=== PATIENT | male | born 1950 | race Caucasian/White ===

== ENCOUNTER 2019-11-21 12:40 | Emergency (ER) | payer MEDICARE, OTHER, SELFPAY ==
[2019-11-21] VITALS (8 sets, daily range): BP systolic 101–139; BP diastolic 73–99; PULSE 86–92; RESP 12–20; TEMP 36.1; O2SAT 95–100
--- NOTE | ~2019-11-21 | CT_ITS ---
EXAMINATION: CT brain wo con DATE: 11/21/2019 13:20 INDICATION: Multiple falls. Low back pain. TECHNIQUE: Computed tomography (CT) of the head was performed without intravenous contrast. The dose- length product was 605.33 mGy-cm. The mA was adjusted according to patient size. Iterative reconstruc tion technique was employed. COMPARISON: CT dated 10/02/2019 FINDINGS: Mild atrophy. There are scattered mild periventricular and subcortical white matter changes , most likely related to small vessel ischemic disease (microangiopathy). No acute intracranial hemor rhage, infarction, mass or mass effect. Mild mucosal thickening of the left maxillary and ethmoid sin uses. Mastoids are pneumatized. No depressed skull fractures. There is nasal fracture, likely chronic . IMPRESSION: 1. No acute intracranial abnormality. 2: Mild sinus disease. 3: Chronic age-related findings. Reviewed, dictated and finalized at location A. OLOGICAL SURGERY TEACHER
--- NOTE | ~2019-11-21 | CT_ITS ---
EXAMINATION: CT cervical spine wo con DATE: 11/21/2019 13:21 INDICATION: Neck pain after fall TECHNIQUE: Computed tomography (CT) of the cervical spine was performed without intravenous contrast. The dose-length product was 438 mGy-cm. Automated exposure control and iterative reconstruction tech doughque were employed. COMPARISON: CT dated 10/02/2019 FINDINGS: There is moderate-severe cervical spondylosis. No acute cervical fracture. Odontoid process within normal limits. No paraspinal soft tissue abnormality. Vertebral body heights are maintained. IMPRESSION: 1. No acute fracture. 2: Moderate-severe cervical spondylosis. Reviewed, dictated and finalized at location A. MOBILE UPHOLSTERY TRIM INSTALLER
--- NOTE | ~2019-11-21 | CT_ITS ---
EXAMINATION: CT lumbar spine wo con DATE: 11/21/2019 13:21 INDICATION: Low back pain after fall. Intoxication. TECHNIQUE: Computed tomography (CT) of the lumbar spine was performed without intravenous contrast. T he dose-length product was 605.33 mGy-cm. Automated exposure control and iterative reconstruction swapna hnique were employed. COMPARISON: CT dated 10/02/2019 FINDINGS: There has been progression of severe burst fracture at T12 with retropulsion into the spina l canal causing mild canal stenosis. There is a chronic wedge compression deformity of T11. There are are chronic right lower rib fractures. There is mild-moderate multilevel degenerative disc disease w ith advanced facet arthropathy at L4-5 and L5-S1. There is scarring in the right lung base. IMPRESSION: 1. Progression of severe burst fracture at T12 compared with 10/02/2019 with associated mild central canal stenosis secondary to retropulsion which has developed since prior study. Reviewed, dictated and finalized at location A. INTERNSHIP IMPRESSION: 1. Progression of severe burst fracture at T12 compared with 10/02/2019 with as sociated mild central canal stenosis secondary to retropulsion which has develo ped since prior study.
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
--- NOTE | 2019-11-21 12:55 | ECG_ITS ---
Measurements Intervals [place] Rate: 92 P: 69 VT: 190 QRS: -17 QRSD: 129 T: 72 QT: 441 QTc: 547 Interpretive Statements SINUS RHYTHM LEFT BUNDLE BRANCH BLOCK BASELINE ARTIFACT- I, II, III, AVR, AVL, AVF, V1-V6 ABNORMAL ECG Electronically Signed On 11-21-2019 17:32:13 MECHANICAL ENGINEERING INTERN by Jericho Mills D.O.
--- NOTE | 2019-11-21 13:00 | PC.NURSE ---
EMS gave IV Thiamine in route.
[2019-11-21 13:47] LABS: Basophils Percent Auto 0.4 % (0.2-1.2); Eosinophils Absolute Auto 0.5 K/mm3 (0-0.3); Eosinophils Percent Auto 5.9 % (0-4.4); Hematocrit 39.3 % (42.0-52.0); Immature Granulocyte Absolute 0.02 K/mm3 (0.00-0.031); Immature Granulocyte Percent A 0.3 % (0-0.5); Lymphocytes Absolute Auto 1.58 K/mm3 (0.9-3.2); Lymphocytes Percent Auto 20.9 % (18.3-44.2); Mean Corpuscular HGB Conc 33.1 g/dl (32-36); Mean Corpuscular Hemoglobin 33.2 pg (26-34); Mean Corpuscular Volume 100.5 fl (80-100); Mean Platelet Volume 11.4 fl (7.4-10.4); Monocytes Absolute Auto 1.1 K/mm3 (0.1-0.6); Monocytes Percent Auto 14.8 % (2.6-8.5); Neutrophils Absolute Auto 4.4 K/mm3 (1.3-6.7); Neutrophils Percent Auto 57.7 % (45.5-73.1); Platelet Count Result 133 k/mm3 (150-375); Red Blood Count 3.91 M/mm3 (4.6-6.20); Red Cell Distribution Width 16.1 % (11.5-14.5); White Blood Count 7.6 K/mm3 (4.5-10.0)
[2019-11-21 13:57] LABS: Add Urine Microscopic? YES; Ammonia 33 umol/L (9-30); Appearance Urine Cloudy (Clear); Bacteria Urine Trace /hpf; Bilirubin Urine Negative (Negative); Blood Urine 2+ (Negative); Color Urine Amber (Yellow); Creatine Kinase 618 U/L (55-170); Glucose Urine UA Negative (Negative); Hyaline Casts Urine 50+ /lpf; Ketones Urine Negative (Negative); Leukocyte Esterase Ur Negative LEU/UL (Negative); Mucus Urine Few /lpf; Nitrate Urine Negative (Negative); Protein Urine 1+ mg/dL (Negative); Specific Grav Ur 1.018 (1.001-1.035); Squamous Epithelial Cell Urine Many /hpf (Few); WBC Clumps Urine Present /HPF; WBC Urine 31-50 /hpf
[2019-11-21 13:58] LABS: INR 1.5; Prothrombin Time 17.8 Seconds (11.1-14.7)
[2019-11-21 13:59] LABS: Alanine Aminotransferase 29 U/L (4-50); Albumin Level 2.7 g/dL (3.5-5.1); Alkaline Phosphatase 227 U/L (38-126); Aspartate Amino Transferase 111 U/L (17-59); Bilirubin,Total 2.6 mg/dL (0.2-1.3); Blood Urea Nitrogen 15 mg/dL (9-20); Calcium 8.4 mg/dL (8.4-10.2); Carbon Dioxide 30 mmol/L (22-30); Chloride 93 mmol/L (98-107); Estimated Glomerular Filt Rate 26; Glucose 99 mg/dL (75-110); Magnesium 1.6 mg/dL (1.6-2.3); Partial Thromboplastin Time 31.3 SECONDS (22.3-36.8); Potassium 3.1 mmol/L (3.4-5.0); Sodium 136 mmol/L (137-145)
[2019-11-21] MEDS: LACTATED RINGERS 1,000 ML 999 ML IV CONT (14:25)
[2019-11-21] MEDS: POTASSIUM CHLORIDE 20 MEQ TABLET 40 MEQ PO (16:44)
[2019-11-21] MEDS: MORPHINE SULFATE 2 MG/ML INJ IV PUSH (19:48)
--- NOTE | 2019-11-21 19:53 | PC.NURSE ---
PT RESTING IN BED WITH NO SS OF DISTRESS. BEDSIDE REPORT GIVEN TO EMS. TRANSFER PACKET WITH IMAGING CD GIVEN TO EMS. ALL QUESTIONS ANSWERED
== END 2019-11-21 19:53 | disposition short-term general hospital (02) ==
PROVIDERS: Emergency Provider General Practice
DX: N17.9 Acute kidney failure, unspecified (principal); S22.081A Stable burst fracture of T11-T12 vertebra, initial encounter for closed fracture; S09.90XA Unspecified injury of head, initial encounter; K74.69 Other cirrhosis of liver; Z89.021 Acquired absence of right finger(s); I10 Essential (primary) hypertension; I51.7 Cardiomegaly; J32.9 Chronic sinusitis, unspecified; M47.812 Spondylosis without myelopathy or radiculopathy, cervical region; W19.XXXA Unspecified fall, initial encounter; I44.7 Left bundle-branch block, unspecified; R94.31 Abnormal electrocardiogram [ECG] [EKG]; R82.998 Other abnormal findings in urine
CPT/HCPCS: 36415; 51701; 70450; 71045; 72125; 72131; 80053; 81001; 82140; 82550; 83735; 85025; 85610; 85730; 87086; 93005; 96361; 96374; 99291; A9270; J2270; J7120

== ENCOUNTER 2020-01-21 22:03 | Inpatient (IN) | payer MEDICARE, OTHER, SELFPAY ==
--- NOTE | ~2020-01-21 | XR_ITS ---
EXAMINATION: XR chest 1V portable EXAM DATE: 01/21/2020 23:10 INDICATION: Generalized weakness. Confusion, dizziness. TECHNIQUE: Portable AP frontal chest x-ray was obtained. Comparison is made to prior examination from 11/21/2019. FINDINGS: The lungs are clear. There are no pleural effusions. Cardiac silhouette is prominent but magnified on this AP technique. There is no pneumothorax suspected. Right shoulder replacement. Le ft humeral hardware and enchondroma or bone infarction. IMPRESSION: No acute cardiopulmonary findings. Reviewed, dictated and finalized at location G.
--- NOTE | ~2020-01-21 | CT_ITS ---
EXAMINATION: CT abdomen pelvis wo con DATE: 01/23/2020 13:04 INDICATION: Abdominal distention TECHNIQUE: Computed tomography (CT) of the abdomen and pelvis was performed without intravenous contr ast. The dose-length product (DLP) was 1237.58 mGy-cm. Automated exposure control and iterative recon struction technique were employed. COMPARISON: 10/06/2018 FINDINGS: There are small pleural effusions, right greater than left. Minimal airspace opacities are present in the visualized lung bases. The heart size is normal. There is bilateral gynecomastia, righ t greater than left. There is nodularity of the liver surface. The enlarged spleen measures up to 16. 5 cm. There is a moderate volume of ascites. Choledocholithiasis is unchanged. The gallbladder and ad renal glands are normal. The kidneys are unremarkable. There is calcified atherosclerosis of the aort a and many of the other arteries. No pathologically enlarged abdominal or pelvic lymph nodes are iden tified. There is no free intraperitoneal gas or evidence of bowel obstruction. The bladder is decompr essed by a Joiner catheter. There are surgical changes of prostatectomy and pelvic lymph node dissecti on. There is posterior thoracolumbar fusion with a chronic T12 burst fracture. There is severe lumbar spondylosis at L5-S1. There are multiple bilateral rib fractures of the visualized lower thorax of v arying age. Some of the left appear to be acute or subacute. IMPRESSION: 1. Cirrhosis with splenomegaly and moderate volume of ascites. 2. Bibasilar airspace opacities, consistent with atelectasis. 3. Small pleural effusions. Reviewed, dictated and finalized at location A.
--- NOTE | ~2020-01-21 | CT_ITS ---
EXAMINATION: CT brain wo con EXAM DATE: 01/21/2020 23:10 INDICATION: Dizziness. TECHNIQUE: Spiral CT of the head was performed without contrast. Axial, coronal and sagittal images were reviewed. The dose-length product (DLP) for this examination was 681.00 mGy-cm. The exposure w as tailored according to patient size, and iterative reconstruction (ASIR) was used as additional dos e reduction technique. Comparison is made to prior examination from 11/21/2019. FINDINGS: There is no acute intraparenchymal hemorrhage. No evidence of intraparenchymal brain mass lesion. No evidence of acute infarction. Please note that initial head CT has limited sensitivity f or small or acute infarctions. There is mild periventricular and subcortical hypodensity, nonspecific but probably related to small vessel ischemic disease. There is moderate prominence of the sulci a nd ventricles related to cerebral atrophy. There is intracranial carotid arteriosclerosis. There a re no extra-axial collections. There is no mass effect or midline shift. Probable old bilateral med ial orbital wall fractures. Soft tissue is unremarkable. The visualized sinuses and mastoid air cell s are well aerated. There is no interval change. IMPRESSION: 1. No acute intracranial findings. 2. Chronic age related findings. Reviewed, dictated and finalized at location G.
--- NOTE | ~2020-01-21 | XR_ITS ---
EXAMINATION: XR chest 1V INDICATION: Shortness of breath TECHNIQUE: AP view of the chest is obtained. COMPARISON: 01/21/2020 FINDINGS: There are small pleural effusions. Bibasilar airspace opacities are unchanged. The heart si ze is normal. There are multiple bilateral rib fractures of varying age. There are changes of right t otal shoulder arthroplasty. Orthopedic screws are noted in the left shoulder. There is flattening of the glenoid and humeral head as well as a mixed sclerotic and lytic lesion of the left proximal humer us, likely an enchondroma. IMPRESSION: 1. Small pleural effusions. 2. Minimal bibasilar airspace opacities, consistent with atelectasis. Reviewed, dictated and finalized at location A.
--- NOTE | 2020-01-21 22:17 | ECG_ITS ---
Measurements Intervals [place] Rate: 109 P: 65 FL: 184 QRS: -8 QRSD: 126 T: 80 QT: 382 QTc: 516 Interpretive Statements SINUS TACHYCARDIA LEFT BUNDLE BRANCH BLOCK BASELINE ARTIFACT- II, III, AVR, AVL, AVF ABNORMAL ECG Electronically Signed On 01-22-2020 7:17:24 CDT by Jericho Mills D.O.
[2020-01-21 22:21] VITALS: BP 137/85; PULSE 109; RESP 20; TEMP 37.6; O2SAT 100
[2020-01-21 22:29] LABS: Add Urine Microscopic? YES; Appearance Urine Cloudy (Clear); Bilirubin Urine 1+ (Negative); Blood Urine 3+ (Negative); Color Urine Yellow (Yellow); Glucose Urine UA Negative (Negative); Ketones Urine Trace (Negative); Leukocyte Esterase Ur 3+ LEU/UL (Negative); Nitrate Urine Negative (Negative); Protein Urine 3+ (Negative)
[2020-01-21 22:36] LABS: Amphetamine Screen Urine Negative (Negative); Barbiturate Screen Urine Negative (Negative); Benzodiazepines Screen Urine Positive (Negative); Cannabinoid Screen Urine Negative (Negative); Cocaine Screen Urine Negative (Negative); Methadone Screen Urine Negative (Negative); Opiate Screen Urine Negative (Negative); Phencyclidine Screen Urine Negative (Negative)
[2020-01-21] MEDS: SODIUM CHLORIDE 0.9% IV 1,000 ML 999 ML IV CONT (22:46)
--- NOTE | 2020-01-21 22:48 | PC.NURSE ---
OK TO RUN BANANA BAG WIDE OPEN PER ERP MANDIS
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
[2020-01-21 22:56] LABS: Basophils Absolute Auto 0.01 K/mm3 (0.00-0.10); Basophils Percent Auto 0.1 % (0.0-1.0); Eosinophils Absolute Auto 0.01 K/mm3 (0.02-0.50); Eosinophils Percent Auto 0.1 % (1.0-6.0); Hematocrit 31.3 % (37.0-46.0); Hemoglobin 10.5 g/dL (12.4-15.3); Immature Granulocyte Absolute 0.06 K/mm3 (0.00-0.00); Immature Granulocyte Percent A 0.6 % (0.0-0.0); Immature Platelet Fraction Pct 8.1 % (1.0-7.0); Lymphocytes Absolute Auto 0.42 K/mm3 (1.10-4.50); Lymphocytes Percent Auto 4.3 % (18.0-42.0); Mean Corpuscular HGB Conc 33.5 g/dL (32.0-36.0); Mean Corpuscular Hemoglobin 29.6 pg (27.0-31.0); Mean Corpuscular Volume 88.2 fL (78.0-102.0); Mean Platelet Volume 13.8 fl (8.7-11.0); Monocytes Absolute Auto 0.88 K/mm3 (0.10-0.90); Monocytes Percent Auto 9.1 % (2.0-11.0); Neutrophils Absolute Auto 8.3 K/mm3 (1.7-7.2); Neutrophils Percent Auto 85.8 % (50.0-70.0); Platelet Count Result 77 K/mm3 (150-420); Red Blood Count 3.55 M/mm3 (4.70-6.10); Red Cell Distribution Width 13.9 % (11.6-14.4); White Blood Count 9.7 K/mm3 (4.8-10.8)
--- NOTE | 2020-01-21 22:56 | PC.NURSE ---
1ST LITER NS CONTINUED PER EMS
[2020-01-21 22:59] LABS: Bacteria Urine 4+ /hpf; RBC Urine >75 /hpf (0-2); Squamous Epithelial Cell Urine None seen /hpf (Few); WBC Urine >75 /hpf (0-3)
[2020-01-21 23:13] LABS: INR 1.5; Partial Thromboplastin Time 33.4 SEC (22.3-31.6)
[2020-01-21 23:14] LABS: BNP 147 pg/mL (0-100)
[2020-01-21 23:15] LABS: Lactic Acid Reflex 2.9 mmol/L (0.4-2.0)
[2020-01-21 23:33] LABS: Alanine Aminotransferase 44 U/L (16-63); Albumin Level 2.4 g/dL (3.4-5.0); Alkaline Phosphatase 84 U/L (46-116); Anion Gap 18.1 mmol/L (7-16); Aspartate Amino Transferase 205 U/L (15-37); Bilirubin,Total 1.9 mg/dL (0.00-1.00); Blood Urea Nitrogen 61 mg/dL (7-18); Calcium 7.5 mg/dL (8.5-10.1); Carbon Dioxide 23 mmol/L (21-32); Chloride 100 mmol/L (98-108); Estimated Glomerular Filt Rate 11; Glucose 102 mg/dL (70-99); Magnesium 1.1 mg/dL (1.8-2.4); Osmolality Calculated 301 mOsm/kg (285-295); Potassium 4.1 mmol/L (3.5-5.1); Sodium 137 mmol/L (136-145); Total Protein 6.5 g/dL (6.4-8.2)
[2020-01-21 23:39] LABS: Troponin I 0.24 ng/mL (0.00-0.056)
[2020-01-21 23:40] LABS: Ethanol < 3 mg/dL (0-6)
[2020-01-21 23:41] LABS: Creatine Kinase > 1000 U/L (39-308)
[2020-01-21] MEDS: levoFLOXacin 500 MG/D5W 100 ML 500 MG/100 ML BAG 100 MG IVPB (23:54)
[2020-01-22] VITALS (14 sets, daily range): BP systolic 71–182; BP diastolic 42–146; PULSE 77–107; RESP 18–24; TEMP 36.2–37.8; O2SAT 98–100; BMI 25.7
--- NOTE | 2020-01-22 00:20 | ADMGEN ---
This patient, Armen Cunningham, was admitted to 2nd Floor Room 207-2. Patient/family oriented to hospital policies and general routines including ID bracelet, bed and alarms, visiting hours, pain management, procedures, bathroom and other care routines, personal items, smoking policy, room service/diet, and visiting hours. Valuables list has been completed. Information on how to activate the Rapid Response Team has been discussed. Patient/Family are encouraged to report perceived risks to care and to ask questions if they do not understand what they are told or what they should do.
--- NOTE | 2020-01-22 00:39 | PC.NURSE ---
0022 pt taken to floor per stretcher with digital media producer and staff therapist. pt speech still unclear. during report james Espinoza requested benites. pt had been using urinal while in er. Erp dr parks notified of request for benites. order placed , if patient needs it , they can put it in on the floor . update to JAMES Reed floor staff regarding benites.
[2020-01-22] MEDS: MAGNESIUM SULF 4 GM/WATER100ML 4 GM/100 ML BAG IVPB (00:45)
[2020-01-22 01:49] LABS: Reflex Lactic Acid Yes or No Add Lactic
[2020-01-22] MEDS: ACETAMINOPHEN 325 MG TABLET 650 MG PO (02:12)
[2020-01-22] MEDS: CHLORDIAZEPOXIDE 10 MG CAPSULE PO ×3 (02:12→16:45)
--- NOTE | 2020-01-22 06:14 | PC.NURSE ---
Patient lethargic and blood pressure 84/50. Urinary output is 75 ml. Charge nurse notified of patients condition.
--- NOTE | 2020-01-22 06:21 | PC.NURSE ---
Doctor notified patient's blood pressure was 84/50 out of 75 mls new order received for liter bolus over 2 hours and to hold coreg. Pharmacy notified of changes
[2020-01-22 06:24] LABS: Troponin I 0.23 ng/mL (0.00-0.056)
--- NOTE | 2020-01-22 06:25 | PC.NURSE ---
Doctor notified of critical high troponin 0.23.
[2020-01-22] MEDS: SODIUM CHLORIDE 0.9% IV 1,000 ML 500 ML IV CONT (06:32)
--- NOTE | 2020-01-22 07:30 | PC.NURSE ---
Difficult to stimulate, lethargic, oxygen in place, fluids infusing at 500ml an hour, color pale, warm, dry, benites patent and draining scant amount isabel urine with sedement in tubing, side rails up adn remains on aerosol isolation
--- NOTE | 2020-01-22 07:54 | PC.NURSE ---
0750 aware of bp remains low 71/42 and ns runs @ 500ml/hr. he is unresponsive and labs are not due til 0900. i am having labs drawn now. no order give 1 liter bolus now and wait for lab results.
--- NOTE | 2020-01-22 07:58 | PC.NURSE ---
Lab here for draw
[2020-01-22 08:08] LABS: Hematocrit 26.3 % (37.0-46.0); Hemoglobin 8.7 g/dL (12.4-15.3); Mean Corpuscular HGB Conc 33.1 g/dL (32.0-36.0); Mean Corpuscular Hemoglobin 29.7 pg (27.0-31.0); Mean Corpuscular Volume 89.8 fL (78.0-102.0); Mean Platelet Volume 12.4 fl (8.7-11.0); Platelet Count Result 54 K/mm3 (150-420); Red Blood Count 2.93 M/mm3 (4.70-6.10); White Blood Count 6.9 K/mm3 (4.8-10.8)
--- NOTE | 2020-01-22 08:10 | PC.NURSE ---
first bolus infused, is able to open eyes and able to mumble, unsure if this is normal speech for patient, more alert and blood pressure slightly improved, mouth dry, dried emesis noted on pillow under head, cleansed face and new pillow case applied, is able to swallow water offered and given some juice
[2020-01-22] MEDS: SODIUM CHLORIDE 0.9% IV 1,000 ML 999 ML IV CONT (08:12)
[2020-01-22 08:28] LABS: Alanine Aminotransferase 42 U/L (16-63); Albumin Level 1.9 g/dL (3.4-5.0); Alkaline Phosphatase 66 U/L (46-116); Anion Gap 15.7 mmol/L (7-16); Aspartate Amino Transferase 196 U/L (15-37); Bilirubin,Total 1.7 mg/dL (0.00-1.00); Blood Urea Nitrogen 66 mg/dL (7-18); Calcium 6.9 mg/dL (8.5-10.1); Carbon Dioxide 23 mmol/L (21-32); Chloride 104 mmol/L (98-108); Estimated CRCL calculation 14 ml/min; Estimated Glomerular Filt Rate 11; Glucose 107 mg/dL (70-99); Magnesium 2.2 mg/dL (1.8-2.4); Osmolality Calculated 307 mOsm/kg (285-295); Potassium 3.7 mmol/L (3.5-5.1); Sodium 139 mmol/L (136-145); Total Protein 5.2 g/dL (6.4-8.2)
[2020-01-22 08:29] LABS: Troponin I 0.19 ng/mL (0.00-0.056)
[2020-01-22 08:30] LABS: Ammonia < 10 umol/L (11-32); Creatine Kinase 664 U/L (39-308)
[2020-01-22 08:31] LABS: Lactic Acid Reflex 2.1 mmol/L (0.4-2.0)
[2020-01-22 08:34] LABS: Band Neutrophils Percent 3 % (0-6); Eosinophils Percent Manual 0 % (1-6); Lymphocytes Absolute Manual 0.48 K/mm3 (1.1-4.5); Lymphocytes Percent Manual 7 % (18-44); Metamyelocytes Percent 1 %; Monocytes Absolute Manual 0.41 K/mm3 (0.1-0.90); Monocytes Percent Manual 6 % (3-9); Neutrophils Absolute Manual 5.58 K/mm3 (1.3-6.7); Neutrophils Percent Manual 78 % (46-73); Total Cells Counted 100
[2020-01-22 08:35] LABS: Immature Platelet Fraction Pct 7.6 % (1.0-7.0); Myelocytes Percent 5 %; Platelet Estimate Decreased (Adequate)
[2020-01-22] MEDS: DEXTROSE 5%/0.9% SOD CHL 1,000 ML 100 ML IV CONT ×2 (09:22→18:49)
[2020-01-22] MEDS: LACTULOSE 20 GM/30 ML UDC 5 GM PO ×2 (09:23→16:45)
[2020-01-22] MEDS: THIAMINE HCL 100 MG TABLET 50 MG PO (09:24)
[2020-01-22] MEDS: SPIRONOLACTONE 25 MG TABLET PO (09:24)
[2020-01-22] MEDS: POTASSIUM CHLORIDE 10 MEQ TABLET PO (09:24)
[2020-01-22] MEDS: FOLIC ACID 1 MG TABLET PO (09:24)
--- NOTE | 2020-01-22 10:04 | PC.NURSE ---
second IV line started right arm, fluids continued, saline lock to LAC continued, site clear
--- NOTE | 2020-01-22 10:12 | PC.NURSE ---
pillow under heels, requesting pain medication for recent back surgery, states takes percocet
--- NOTE | 2020-01-22 10:28 | PC.NURSE ---
Dr Jimenez and Bhumi the hospitalist in room
--- NOTE | 2020-01-22 11:17 | PC.NURSE ---
Incontinent of loose stool, cleansed, more alert, speaking on the phone with brother, fluids infusing, urine in urine bag isabel in color
--- NOTE | 2020-01-22 12:47 | PM.IMHP ---
H&P: HPI History of Present Illness Chief complaint: AMB <DEWEY Dent - Last Filed: 01/22/20 13:44> Narrative: Armen Cunningham is a 69 year old male that presented to the ED yesterday due to weakness and altered mental status. Patient has a past history of amputated fingers digits 2 through 5, right hand amputated finger complication, cirrhosis, edema, alcohol abuse and hypertension. According to patient he has had several mechanical falls within the last few days due to rugs on his floor. patient recently had back surgery and requires the use of a walker. he was not using his walker during the fall. patient noted that he remained on the floor for approximately 12 hours before a friend came over and found him on the floor. according to patient's friend his speech is normally gargled and this is baseline for him. patient's vital signs are 97.6, 90, 18, 98% on room air, 94/55. while in the ER patient was bolused with 3 L of fluid , given Levaquin and Librium with a banana bag. patient's CT of the head and chest x-ray were negative his COVID-19 is pending he did test positive for benzo but it could have been after he received the Librium in the ED , his troponin was slightly elevated at 0.24, his lactic acid was elevated 2.9, his magnesium was decreased at 1.1 Mag rider given , his alcohol level was within normal limits, his ammonia level was also within normal limits, his creatinine was 5.06, his UA indicated a UTI and his CK was also elevated, 1000. Patient is being admitted for rhabdo ,UTI with altered mental status. . Patient denies SOB, CP, palpitation, extremity numbness, lightheadness, dizziness, constipation, diarrhea, chills or fever. <DEWEY Dent - Last Filed: 01/22/20 13:44> Review of Systems Constitutional: Constitutional: Denies chills, Reports fatigue, Denies headache(s) and Reports weakness <DEWEY Dent - Last Filed: 01/22/20 13:44> Cardiovascular: Cardiovascular: Reports no additional cardiovascular complaints, Denies chest pain, Denies chest pain at rest, Denies lightheadedness and Reports dyspnea <Bhumi Duvall IVAN - Last Filed: 01/22/20 13:44> Respiratory: Respiratory: Denies chest congestion, Denies cough, Reports dyspnea and Reports wheezing <Bhumi Duvall IVAN - Last Filed: 01/22/20 13:44> Gastrointestinal: Gastrointestinal: Denies constipation, Reports loose stools, Denies nausea and Denies vomiting <Bhumi Duvall IVAN - Last Filed: 01/22/20 13:44> Genitourinary: Genitourinary: Denies hematuria, Denies dysuria and Denies flank pain <Bhumi Duvall SECONDARY ART TEACHERTere - Last Filed: 01/22/20 13:44> Musculoskeletal: Musculoskeletal: Reports back pain <Bhumi Duvall IVAN Last Filed: 01/22/20 13:44> Integumentary/Breasts: Skin/Breast: Reports system reviewed and no additional complaints, except as docu <Bhumi Duvall SECONDARY ART TEACHERTere Last Filed: 01/22/20 13:44> Neurologic: Reports Abnormal speech present ( baseline), Reports frequent falls and Denies headache(s) <Bhumi Duvall SECONDARY ART TEACHER-C - Last Filed: 01/22/20 13:44> Psychiatric: Psychiatric: Reports no additional psychiatric complaints <Bhumi Duvall IVAN - Last Filed: 01/22/20 13:44> Endocrine: Endocrine: Reports no additional endocrine complaints <Bhumi Duvall IVAN Last Filed: 01/22/20 13:44> [facility] Past Medical History Medical History: Medical History 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
[2020-01-22] MEDS: PHARMACIST COMMUNICATION ORDER 1 EACH XX (12:58)
--- NOTE | 2020-01-22 13:13 | PC.NURSE ---
Repositioned in bed, side to side, incontinent of stool often and shaw/rectal care provided, no breakdown noted
[2020-01-22 13:18] LABS: Hematocrit 30.5 % (37.0-46.0); Hemoglobin 9.9 g/dL (12.4-15.3)
[2020-01-22] MEDS: ALBUTEROL SULFATE (*SP) INHALER 8 PUFF INHALATION ×2 (14:18→19:45)
--- NOTE | 2020-01-22 14:26 | WPDPN ---
Progress Note: A&P Assessment and Plan (1) Elevated troponin: Code(s): R79.89 - Other specified abnormal findings of blood chemistry Status: Acute Objective Data Vital Signs Vital Signs: Vital Signs - 24 hr 01/21/20 22:21 01/22/20 00:00 01/22/20 00:04 Temperature 99.6 F 99 F Pulse Rate 109 H 101 H 105 H Pulse Rate [Radial] Respiratory Rate 20 20 Blood Pressure 137/85 94/70 L Pulse Oximetry 100 100 01/22/20 00:30 01/22/20 02:12 01/22/20 03:15 Temperature 100.1 F H 100.1 F H 99.8 F H Pulse Rate 102 H Pulse Rate [Radial] Respiratory Rate 24 H Blood Pressure 110/67 Pulse Oximetry 100 01/22/20 03:43 01/22/20 03:46 01/22/20 06:00 Temperature 99.8 F H 97.2 F L Pulse Rate 107 H 105 H 84 Pulse Rate [Radial] Respiratory Rate 24 H 20 Blood Pressure 94/50 L 84/50 L Pulse Oximetry 99 99 01/22/20 07:30 01/22/20 08:43 01/22/20 09:45 Temperature 97.1 F L Pulse Rate 77 77 Pulse Rate [Radial] 81 Respiratory Rate 18 Blood Pressure 71/42 L 86/52 L Pulse Oximetry 99 01/22/20 12:00 Temperature 97.6 F Pulse Rate 90 Pulse Rate [Radial] 90 Respiratory Rate 18 Blood Pressure 94/58 L Pulse Oximetry 98 Intake/Output Intake/Output: Intake & Output 01/19/20 01/20/20 01/21/20 01/22/20 23:59 23:59 23:59 23:59 Intake Total 1999 3170 Output Total 75 Balance 1999 3095 Meds/Results Medications: Active Medications Generic Name Dose Route Start Last Admin Trade Name Freq PRN Reason Stop Dose Admin Acetaminophen 650 mg 01/21/20 23:47 01/22/20 02:12 Tylenol Tablet PO 650 mg Q4H PRN Administration Mild Pain (1-3) or Fever Hydrocodone Bitart/Acetaminophen 1 tab 01/22/20 09:44 01/22/20 12:54 [place] 5-325 Mg PO 1 tab Q6H PRN Administration Pain Rated 4-6 Al Hydrox/Mg Hydrox/Simethicone 30 ml 01/21/20 23:47 Mylanta PO QID PRN Dyspepsia Albuterol 8 puff 01/22/20 14:30 01/22/20 14:18 Proventil Hfa INHALATION 8 puff QIDRT TRINIDAD Administration Chlordiazepoxide HCl 10 mg 01/22/20 09:00 01/22/20 09:25 Librium Po PO 10 mg Q8H TRINIDAD Administration Folic Acid 1 mg 01/22/20 09:00 01/22/20 09:24 Folic Acid PO 1 mg DAILY TRINIDAD Administration Dextrose/Sodium Chloride 1,000 mls @ 100 mls/hr 01/22/20 08:45 01/22/20 09:22 Dextrose 5% Sodium Chloride 0.9% IV CONT 100 mls/hr .Q10H TRINIDAD Administration Levofloxacin/Dextrose 250 mg in 50 mls @ 50 mls/hr 01/24/20 00:00 Levaquin 250 Mg/D5w 50 Ml IVPB Q48H TRINIDAD Lactulose 5 gm 01/22/20 09:00 01/22/20 09:23 Lactulose PO 5 gm BID TRINIDAD Administration Lorazepam 2 mg 01/22/20 08:55 Ativan Inj IV PUSH Q6H PRN Alcohol Withdrawal Naloxone HCl 0.1 mg 01/21/20 23:47 Narcan IV PUSH Q2M PRN Opiate Reversal Ondansetron HCl 4 mg 01/21/20 23:47 Zofran Inj IV PUSH Q6H PRN Nausea And Vomiting Potassium Chloride 10 meq 01/22/20 09:00 01/22/20 09:24 Kcl Tablet PO 10 meq DAILY TRINIDAD Administration Thiamine HCl 50 mg 01/22/20 09:00 01/22/20 09:24 Vitamin B-1 PO 50 mg QAM TRINIDAD Administration Tiotropium [place] 1 cap 01/22/20 09:00 01/22/20 12:58 Spiriva INHALATION 1 cap QAM TRINIDAD Administration Tramadol HCl 25 mg 01/22/20 09:44 Ultram PO Q6H PRN Pain Rated 4-6 Radiology Results: ITS Impressions Chest X-Ray 01/21/20 23:18 IMPRESSION: No acute cardiopulmonary findings. Head CT 01/21/20 23:19 IMPRESSION: 1. No acute intracranial findings. 2. Chronic age related findings. Labs Labs: Laboratory Results - last 24 hr 01/21/20 01/21/20 01/21/20 22:15 22:15 22:48 WBC RBC Hgb Hct MCV MCH MCHC RDW Plt Count MPV Immature Gran % (Auto) Neut % (Auto) Lymph % (Auto) [place] % (Auto) Eos % (Auto) Baso % (Auto) Lymph # (Auto) [place] # (Auto) Eos # (
[2020-01-22 16:54] LABS: Hematocrit 25.9 % (37.0-46.0); Hemoglobin 8.6 g/dL (12.4-15.3)
--- NOTE | 2020-01-22 20:12 | PC.NURSE ---
2100 Coreg held for blood pressure 96/62. Charge nurse notified.
[2020-01-23] VITALS (8 sets, daily range): BP systolic 88–111; BP diastolic 54–70; PULSE 81–104; RESP 18–20; TEMP 36.5–37.1; O2SAT 97–99
--- NOTE | 2020-01-23 01:27 | PC.NURSE ---
[address] Jimenez of pt's low blood pressure and low urine output. Orders received and noted.
[2020-01-23] MEDS: SPIRONOLACTONE 25 MG TABLET PO ×2 (01:45→20:35)
[2020-01-23] MEDS: DEXTROSE 5%/0.9% SOD CHL 1,000 ML 100 ML IV CONT (05:04)
[2020-01-23] MEDS: ALBUTEROL SULFATE (*SP) INHALER 8 PUFF INHALATION ×4 (05:31→20:35)
[2020-01-23 05:40] LABS: Basophils Absolute Auto 0.01 K/mm3 (0.00-0.10); Basophils Percent Auto 0.2 % (0.0-1.0); Eosinophils Absolute Auto 0.04 K/mm3 (0.02-0.50); Eosinophils Percent Auto 0.7 % (1.0-6.0); Hematocrit 28.9 % (37.0-46.0); Hemoglobin 9.6 g/dL (12.4-15.3); Immature Granulocyte Percent A 1.7 % (0.0-0.0); Immature Platelet Fraction Pct 8.4 % (1.0-7.0); Lymphocytes Absolute Auto 0.54 K/mm3 (1.10-4.50); Lymphocytes Percent Auto 9.3 % (18.0-42.0); Mean Corpuscular HGB Conc 33.2 g/dL (32.0-36.0); Mean Corpuscular Hemoglobin 30.6 pg (27.0-31.0); Monocytes Absolute Auto 0.83 K/mm3 (0.10-0.90); Monocytes Percent Auto 14.3 % (2.0-11.0); Neutrophils Absolute Auto 4.3 K/mm3 (1.7-7.2); Neutrophils Percent Auto 73.8 % (50.0-70.0); Platelet Count Result 47 K/mm3 (150-420); Red Blood Count 3.14 M/mm3 (4.70-6.10); Red Cell Distribution Width 14.4 % (11.6-14.4); White Blood Count 5.8 K/mm3 (4.8-10.8)
[2020-01-23 05:57] LABS: Lactic Acid 2.2 mmol/L (0.4-2.0)
[2020-01-23 06:30] LABS: Alanine Aminotransferase 86 U/L (16-63); Alkaline Phosphatase 100 U/L (46-116); Anion Gap 17.7 mmol/L (7-16); Aspartate Amino Transferase 343 U/L (15-37); Bilirubin,Total 1.7 mg/dL (0.00-1.00); Blood Urea Nitrogen 70 mg/dL (7-18); Calcium 6.8 mg/dL (8.5-10.1); Carbon Dioxide 19 mmol/L (21-32); Chloride 100 mmol/L (98-108); Creatine Kinase 215 U/L (39-308); Estimated CRCL calculation 16 ml/min; Estimated Glomerular Filt Rate 13; Glucose 117 mg/dL (70-99); Osmolality Calculated 297 mOsm/kg (285-295); Potassium 3.7 mmol/L (3.5-5.1); Sodium 133 mmol/L (136-145); Total Protein 5.1 g/dL (6.4-8.2)
--- NOTE | 2020-01-23 06:37 | PC.NURSE ---
0630 Lab called to report critical lab value for creatinine of 4.42. Dr. Jimenez notified of pt's creatinine of 4.42. No new orders at this time.
--- NOTE | 2020-01-23 08:00 | PC.NURSE ---
Breakfast tray to patient, given norco for back pain, feeds self
[2020-01-23] MEDS: LACTULOSE 20 GM/30 ML UDC 5 GM PO ×2 (08:52→16:57)
[2020-01-23] MEDS: POTASSIUM CHLORIDE 10 MEQ TABLET PO (08:53)
[2020-01-23] MEDS: CHLORDIAZEPOXIDE 10 MG CAPSULE PO (08:53)
[2020-01-23] MEDS: FOLIC ACID 1 MG TABLET PO (08:53)
[2020-01-23] MEDS: THIAMINE HCL 100 MG TABLET 50 MG PO (08:54)
[2020-01-23] MEDS: carvediloL 3.125 MG TABLET PO (08:54)
--- NOTE | 2020-01-23 10:08 | PC.NURSE ---
re adjusted pillow under legs, moving legs well in bed, patient concerned about not getting lasix, adomen bloated, soft, pliable, bowel sounds positive
--- NOTE | 2020-01-23 11:51 | PM.IMHP ---
H&P: HPI History of Present Illness Chief complaint: AMB <DEWEY Dent - Last Filed: 01/23/20 12:16> Narrative: Armen Cunningham is a 69 year old male he does complain of abdominal distension. he is concerned about not getting his spironolactone , Lasix and carvedilol. I explained to the patient that he is being treated for dehydration so his spironolactone and Lasix is being held. he was also hypotensive yesterday so his carvedilol is being held. he continues to have loose bowel movement due to lactulose and his breathing appears to be a little more labored today. I did check a saturation while at bedside ,which was 98%. he will complete a CT of his abdomen and a chest x-ray. he is alert and orientated x3 at this time and his speech remains garbled. speech therapy will be consulted <DEWEY Dent - Last Filed: 01/23/20 12:16> Review of Systems Constitutional: Constitutional: Denies chills, Reports fatigue, Reports frequent falls, Denies headache(s) and Reports weakness <DEWEY Dent - Last Filed: 01/23/20 12:16> ENT: Denies headache(s) <DEWEY Dent - Last Filed: 01/23/20 12:16> Cardiovascular: Cardiovascular: Reports no additional cardiovascular complaints, Denies chest pain, Denies chest pain at rest, Denies lightheadedness and Reports dyspnea <DEWEY Dent - Last Filed: 01/23/20 12:16> Respiratory: Respiratory: Denies chest congestion, Denies cough, Reports dyspnea and Reports wheezing <DEWEY Dent - Last Filed: 01/23/20 12:16> Gastrointestinal: Gastrointestinal: Reports bloating, Denies constipation, Reports loose stools, Denies nausea, Denies vomiting and Reports other ( distended abdomen) <DEWEY Dent - Last Filed: 01/23/20 12:16> Genitourinary: Genitourinary: Denies hematuria, Denies dysuria and Denies flank pain <DEWEY Dent - Last Filed: 01/23/20 12:16> Musculoskeletal: Musculoskeletal: Reports back pain <Bhumi Duvall DEWEY - Last Filed: 01/23/20 12:16> Integumentary/Breasts: Skin/Breast: Reports system reviewed and no additional complaints, except as docu <Bhumi Duvall DEWEY - Last Filed: 01/23/20 12:16> Neurologic: Reports Abnormal speech present ( baseline), Reports frequent falls, Denies headache(s) and Reports weakness <Bhumi Duvall DEWEY - Last Filed: 01/23/20 12:16> Psychiatric: Psychiatric: Reports no additional psychiatric complaints <Bhumi Duvall DEWEY - Last Filed: 01/23/20 12:16> Endocrine: Endocrine: Reports no additional endocrine complaints and Reports fatigue <Bhumi Duvall DEWEY - Last Filed: 01/23/20 12:16> Allergic/Immunologic: Allergic/Immunologic: Reports wheezing <Bhumi Duvall DEWEY - Last Filed: 01/23/20 12:16> [facility] Past Medical History Medical History: Medical History 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 Cirrhosis Edema HTN (hypertension) <Bhumi Duvall DEWEY - Last Filed: 01/23/20 12:16> Surgical History Surgical History: Surgical History Surgical history unknown <Carltonminesh JulienneIVAN LoftonJon - Last Filed: 01/23/20 12:16> Family History Family History: Family History Father Diabetes mellitus <IVAN DentJon Last Filed: 01/23/20 12:16> Social History Social History: Social History Smoking status: Unknown if ever smoked Alcohol intake: current Substance use: unknown Last use: last alcoholic drink 2 days ago per ER report Gender identity (if verbalized by the patient): Male Agree to blood products: Yes <DAVONTE Dent-Jon - Last Filed: 01/23/20 12:16> Meds Home Medications and Allergies Home medications: Home
--- NOTE | 2020-01-23 13:46 | PM.EVENT ---
Event Note Event Note Event Note: Chart evaluated, case discussed with Bhumi Miller. 1. Weakness - persists. Await PT/OT eval and therapy 2. Acute on chronic CKD, hypotension, decreased urine output: after 3 liters of fluid 300 ml output. Cr. drop from 5.6 - 4.9. Lung sounds clear; no pedal edema. Plan: IV hydration, monitor for fluid overload, monitor labs; baseline BNP. 3. Altered mental status: alert to time, place and reason to be here. 4. Rhabdomyalysis - dropping CK from 1,000 to 115. 5. UTI - on Levaquin 6. Impaired speech articulation: pt feels it worse in the past week; acquaintance talked with patient, does not feel it's worse. Head CT on admission negative. No focal findings. Bhumi Duvall will review records from [facility] 7. Ascites secondary to cirrhosis: Abd. is rounded. minor tenderness to deep palpation throughout. No rebound. Will hold aldactone and spironolactone until pt is hydrated or evidence of fluid overload. 8. Chronic alcohol abuse: No signs of withdrawal. Ativan ordered PRN; Agree with plan ourlined in Jose Kim's note.
[2020-01-23] MEDS: DEXTROSE 5%/0.9% SOD CHL 1,000 ML 200 ML IV CONT (14:03)
--- NOTE | 2020-01-23 14:24 | PC.NURSE ---
Notified BUSINESS INFORMATION ANALYST hospialist of urine output for 7-3 shift of 150 ml/hr. Orders continue with fluid change and watch for s/sx of overload.
--- NOTE | 2020-01-23 14:28 | PC.NURSE ---
Remains on bedrest with fluids infusing, requesting pain medication for back pain
[2020-01-23 14:49] LABS: SARS-CoV-2 RNA PCR Negative
--- NOTE | 2020-01-23 17:15 | PC.NURSE ---
Dinner tray set up for patient, no change in appearance of abdomen at this time, no SOB noted at rest
--- NOTE | 2020-01-23 18:27 | PC.NURSE ---
Gown changed, lungs with continued expiratory wheeze noted, some thigh edema noted at this time, benites with isabel/straw urine noted, small amount
--- NOTE | 2020-01-23 19:00 | PC.NURSE ---
Dr Vila called and said to stop patient's IV fluids and to get a weight. IV fluids stopped and weight of 93.7 kg obtained. No distress noted. Call light in reach.
--- NOTE | 2020-01-23 20:00 | PC.NURSE ---
Patient speech garbled and therefore hard to understand. Color pale. Skin w/d. Respirations even and unlabored. Audible exp wheeze noted, lungs otherwise clear. Abdomen very large, distended and firm but non-tender. Patient says he feels bloated. BS+ x4. Slight edema noted to bilateral thighs. Joiner catheter patent and draining clear isabel urine with small amount (approximately 100ml) of urine in bag. Patient reports chronic back pain rated @ 6 and verbalizes understanding that he cannot receive next pain pill until 2100. Patient's abdominal girth obtained and is 123cm. Patient denies needs @ this time. No distress noted. Call light in reach.
--- NOTE | 2020-01-23 20:13 | PM.EVENT ---
Event Note Event Note Event Note: Output of 425 ml input over 5 liters over the past 24 hours. Weight on admission 83.6 kg, weight this evening = 93.7 kg. Creatinine on 10/02/19 = 1.68, 11/21 = 2.5, 01/20 = 5.3, 01/22 = 4.4 Urine analysis 11/21 = 50+ casts with hematuria and pyuria. Pt. transferred to [facility] to neurosurgery to treat worsening burst fracture. 37.1 - 88 - 20 111/65 Pt. feels a little more distended. Slurred speech has not changed. Alert. Appropriate response to questions. Lungs are clear. Abdomen is distended but not firm or tender. No pedal edema. ASSESSMENT: Acute renal deterioration over the past 2 months with associated hematuria, bacteruria and casts on 11/21; similar results on 01/20 but no casts and pt. with benites. DDX includes ATN, other renal sources of kidney failure, and hepatorenal syndrome. PLAN: STRONGLY recommended transfer for higher level of care: G.I. and nephrology consult, possible use of terlipressin + albumin. Pt. refuses to be transferred tonight; he wants to see how he's doing in the AM. If he worsens tonight or is not improved substantially in AM he agrees to be transferred. Pt. acknowledged his understanding in the presence of JAMES Lowry that patient's condition could worsen this evening which could be prevented if he was transferred. (Pt. has a hx of refusing medically advised care, see Oct 02 note). I recommended return to [facility] where he was admitted in October. IV stopped. Stopped oral fluids. Start furosemide 40 mg p.o. and spironolactone 25 mg. Daily weight and abd. girth measurements.
--- NOTE | 2020-01-23 20:15 | PC.NURSE ---
Dr Vila examined patient and spoke to patient about his condition, along with test results and advised patient that he needs to be seen @ a hospital where he can see specialists. Patient refused to go and told Dr Vila and this nurse that if he isn't doing better tomorrow that he will agree to transfer.
[2020-01-23] MEDS: FUROSEMIDE 40 MG TABLET PO (20:35)
--- NOTE | 2020-01-23 20:40 | PC.NURSE ---
Patient given Lasix 40mg po and Spironolactone 25mg po as ordered.
--- NOTE | 2020-01-23 21:25 | PC.NURSE ---
Patient appears to be sleeping by the rise and fall of his chest. Respirations even and unlabored. Joiner catheter patent and draining clear isabel urine. No distress noted. Call light in reach.
--- NOTE | 2020-01-23 22:20 | PC.NURSE ---
Patient appears to be sleeping by the rise and fall of his chest. Respirations even and unlabored. No distress noted. Call light in reach.
--- NOTE | 2020-01-23 23:30 | PC.NURSE ---
Patient appears to be sleeping by the rise and fall of his chest. Respirations even and unlabored. Clear isabel urine noted in benites bag. No distress noted. Call light in reach.
[2020-01-24] VITALS: BP 97/63; PULSE 98; RESP 20; TEMP 37.3; O2SAT 97
[2020-01-24] MEDS: levoFLOXacin 250 MG/D5W 50 ML 250 MG/50 ML BAG 50 MG IVPB (00:03)
--- NOTE | 2020-01-24 00:30 | PC.NURSE ---
Patient appears to be sleeping by the rise and fall of his chest. Respirations even and unlabored. Joiner catheter emptied of 150ml clear isabel urine. No distress noted. Call light in reach.
--- NOTE | 2020-01-24 01:10 | PC.NURSE ---
Patient appears to be sleeping by the rise and fall of his chest. Respirations even and unlabored. No distress noted. Call light in reach.
--- NOTE | 2020-01-24 02:20 | PC.NURSE ---
Patient appears to be sleeping by the rise and fall of his chest. Respirations even and unlabored. No distress noted. Very small amount of isabel urine in benites bag. Call light in reach.
--- NOTE | 2020-01-24 03:15 | PC.NURSE ---
Patient appears to be sleeping by the rise and fall of his chest. Respirations even and unlabored. No distress noted. Call light in reach.
[2020-01-24 04:00] VITALS: BP 92/60; PULSE 90; RESP 20; TEMP 36.5; O2SAT 98
--- NOTE | 2020-01-24 04:10 | PC.NURSE ---
Patient appears to be sleeping by the rise and fall of his chest. Respirations even and unlabored. Joiner catheter bag continues to have small amount of isabel urine in it. No distress noted. Call light in reach.
--- NOTE | 2020-01-24 05:00 | PC.NURSE ---
Patient awake when nurse checked on him. Patient talking about his transfer to another hospital today and says he needs his friend to bring him a few things before he leaves. Patient asked nurse to text his friend on his cell phone and patient would tell nurse what to text. Texted patient's friend and explained where his extra keys are and asked her to do a load of laundry and bring him some sweat pants, underwear and a shirt before 8 am. Asked patient if he would rather call his friend and he said no. Respirations even and unlabored. Abdomen remains distended and firm. Patient says he still feels bloated. Joiner catheter emptied of only 75ml clear isabel urine. No distress noted. Call light in reach.
[2020-01-24 05:45] LABS: Hematocrit 26.6 % (37.0-46.0); Hemoglobin 8.7 g/dL (12.4-15.3); Mean Corpuscular HGB Conc 32.7 g/dL (32.0-36.0); Mean Corpuscular Hemoglobin 28.9 pg (27.0-31.0); Mean Corpuscular Volume 88.4 fL (78.0-102.0); Platelet Count Result 55 K/mm3 (150-420); Red Blood Count 3.01 M/mm3 (4.70-6.10); Red Cell Distribution Width 14.1 % (11.6-14.4); White Blood Count 8.1 K/mm3 (4.8-10.8)
[2020-01-24] MEDS: ALBUTEROL SULFATE (*SP) INHALER 8 PUFF INHALATION ×4 (05:59→20:46)
[2020-01-24 06:03] LABS: Lactic Acid 1.8 mmol/L (0.4-2.0)
--- NOTE | 2020-01-24 06:06 | PC.NURSE ---
Patient did AM inhaler without difficulty. Patient's respirations remain even and unlabored. Abdomen continues to be distended and firm, though patient says he doesn't feel quite as bloated now. Joiner catheter patent and has a very, very small amount of isabel urine noted in bag. Patient says his friend hasn't texted him back so he'll probably just have to forget about it and just go when the doctor says to go. No distress noted. Call light in reach.
[2020-01-24 06:13] LABS: Alanine Aminotransferase 97 U/L (16-63); Albumin Level 1.8 g/dL (3.4-5.0); Alkaline Phosphatase 141 U/L (46-116); Anion Gap 16.6 mmol/L (7-16); Aspartate Amino Transferase 278 U/L (15-37); Bilirubin Direct 1.7 mg/dL (0-0.2); Bilirubin,Total 1.9 mg/dL (0.00-1.00); Blood Urea Nitrogen 70 mg/dL (7-18); Calcium 7.3 mg/dL (8.5-10.1); Carbon Dioxide 18 mmol/L (21-32); Chloride 100 mmol/L (98-108); Creatine Kinase 106 U/L (39-308); Estimated CRCL calculation 17 ml/min; Estimated Glomerular Filt Rate 14; Glucose 121 mg/dL (70-99); Magnesium 1.7 mg/dL (1.8-2.4); Osmolality Calculated 293 mOsm/kg (285-295); Potassium 3.6 mmol/L (3.5-5.1); Sodium 131 mmol/L (136-145); Total Protein 4.9 g/dL (6.4-8.2)
[2020-01-24 06:28] LABS: CRP 10.4 mg/dL (0.0-0.9)
--- NOTE | 2020-01-24 06:36 | PC.NURSE ---
0861 Dr. Vila notified of pt's critical creatinine value. No new orders at this time.
[2020-01-24 07:43] VITALS: BP 92/67; PULSE 84; RESP 20; TEMP 36.6; O2SAT 98
--- NOTE | 2020-01-24 07:51 | PC.NURSE ---
NPO except for ice chips, willing to transfer today to [facility], benites patent and draining small amount of isabel urine, abdominal girth measured 123cm, edema noted to penis and in scrotum, slight, thighs with non pitting swelling noted, no edema to lower legs noted, no wheezing noted this am, room air saturations 98%
[2020-01-24] MEDS: LACTULOSE 20 GM/30 ML UDC 5 GM PO ×2 (08:43→16:33)
[2020-01-24] MEDS: THIAMINE HCL 100 MG TABLET 50 MG PO (08:43)
[2020-01-24] MEDS: FOLIC ACID 1 MG TABLET PO (08:43)
--- NOTE | 2020-01-24 09:17 | PC.NURSE ---
Repositioned, able to turn side to side with assist, buttocks assessed, no redness noted, healed scar to mid back and abrasion noted to upper back, clean dry pad under patient, jay hose re applied at this time
--- NOTE | 2020-01-24 10:00 | PC.NURSE ---
New orders received from hospitalist after consulting [facility],
[2020-01-24] MEDS: SODIUM BICARBONATE 8.4% 150 MEQ in DEXTROSE 5% 1,000 ML 1,000 ML 115 ML IV CONT ×2 (10:18→20:51)
[2020-01-24] MEDS: FUROSEMIDE INJ 100 MG/10 ML VIAL 80 MG IV PUSH ×2 (10:32→16:33)
[2020-01-24] MEDS: MAGNESIUM OXIDE 400 MG TABLET PO (10:33)
[2020-01-24 10:47] LABS: BNP 103 pg/mL (0-100)
--- NOTE | 2020-01-24 11:00 | PC.NURSE ---
Consent obtained for blood product
[2020-01-24] MEDS: ALBUMIN HUMAN 25% 25 GM/100 ML 100 ML IVPB ×2 (11:05→17:58)
[2020-01-24 11:16] VITALS: BP 97/66; PULSE 84; RESP 20; TEMP 36.4; O2SAT 98
--- NOTE | 2020-01-24 12:04 | PM.IMPN ---
Progress Note: A&P Assessment and Plan (1) Elevated troponin: Code(s): R79.89 - Other specified abnormal findings of blood chemistry Status: Acute Assessment and Plan: o possibly secondary to trauma o troponins trending down o continue telemetry (2) Hypotension: Code(s): I95.9 - Hypotension, unspecified Status: Acute Assessment and Plan: o possibly secondary to dehydration improving blood pressure 101/61 o will hold patient's carvedilol, spironolactone o continue vital signs is ordered started dextrose 5 with 3 amps of bicarb at 100 mL/hour per reinsurance accountant recommendations o (3) Altered mental status: Code(s): R41.82 - Altered mental status, unspecified Status: Acute Assessment and Plan: o possibly secondary to UTI o lactic acid elevated on admission 2.9 currently within normal limits o head CT negative o chest x-ray negative o ammonia level within normal limits o alcohol level within normal limits o COVID-19 pending (4) History of fall: Code(s): Z91.81 - History of falling Status: Acute Assessment and Plan: possibly secondary to UTI versus mechanical fall o will start physical therapy/occupational therapy once COVID-19 is negative o CK level elevated on admission at 1000 currently within normal limits (5) Rhabdomyolysis: Qualifiers: Rhabdomyolysis type: non-traumatic Qualified Code(s): M62.82 - Rhabdomyolysis Code(s): M62.82 - Rhabdomyolysis Status: Acute Assessment and Plan: secondary to mechanical fall o creatinine on admission 5.33 slight improvement currently 4.16 trending down o continue to hydrate patient o I&Os review patient positive 3000 post 5 L of fluid o BMP in the a.m. (6) Acute renal failure (ARF): Qualifiers: Acute renal failure type: unspecified Qualified Code(s): N17.9 - Acute kidney failure, unspecified Code(s): N17.9 - Acute kidney failure, unspecified Status: Acute Assessment and Plan: o secondary to rhabdo caused by a mechanical fall o patient's baseline appears to be 1.10 creatinine improving 4.16 o patient will receive dextrose 5 with 3 amps of bicarb per nephro recommendations o BMP in the a.m. o renal dose all medication o avoid nephrotoxic agents patient will receive albumin 2 6 hours for 24 hours patient will also receive 80 mg of Lasix b.i.d. (7) UTI (urinary tract infection): Qualifiers: Hematuria presence: without hematuria Urinary tract infection type: acute cystitis Qualified Code(s): N30.00 - Acute cystitis without hematuria Code(s): N39.0 - Urinary tract infection, site not specified Status: Acute Assessment and Plan: o UA indicates leukocyte esterases, wbc's and bacteria indication of UTI o UA and blood culture with a growth of E coli. Levaquin will cover o continue Levaquin with renal dosage day3 o white blood cells within normal limits o patient afebrile o will continue to monitor (8) Hypomagnesemia: Code(s): E83.42 - Hypomagnesemia Status: Acute Assessment and Plan: resolved o on admission patient magnesium low, patient given Mag rider o magnesium within normal limits o will continue to monitor and supplement as needed (9) Acute dehydration: Code(s): E86.0 - Dehydration Status: Acute Assessment and Plan: o as evidence by dry mucous membranes o will continue to hydrate patient o will hold patient's spironolactone (10) Cirrhosis: Qualifiers: Hepatic cirrhosis type: other cirrhosis Qualified Code(s): K74.69 - Other cirrhosis of liver Code(s): K74.60 - Unspecified cirrhosis of liver Status: Acute Assessment and Plan: patient AST and alt elevated but improving o continue patient's lactulose o patient ammonia level within normal l
[2020-01-24 15:10] VITALS: BP 115/79; PULSE 84; RESP 20; TEMP 36.6; O2SAT 99
--- NOTE | 2020-01-24 15:31 | PC.NURSE ---
[place] given for pain in back
--- NOTE | 2020-01-24 18:06 | PC.NURSE ---
albumin infusing, site clear, denies needs, ate fair for dinner,
--- NOTE | 2020-01-24 19:05 | PC.NURSE ---
Patient sitting up in bed watching tv. Respirations even and unlabored. IV fluids infusing to site in RFA and Albumin infusing to site in LFA. Abdomen is large and rounded but not as firm as previous evening and patient says he still feels bloated but not as bad. Joiner catheter patent and draining isabel urine with small amount of sediment noted in tubing. No distress noted. Call light in reach.
[2020-01-24 20:00] VITALS: BP 116/71; PULSE 96; RESP 20; TEMP 35.9; O2SAT 100
--- NOTE | 2020-01-24 22:00 | PC.NURSE ---
Patient appears to be sleeping by the rise and fall of his chest. Respirations even and unlabored. Joiner catheter patent and draining isabel urine with sediment present in tubing. No distress noted. Call light in reach.
[2020-01-25] VITALS (7 sets, daily range): BP systolic 103–130; BP diastolic 56–71; PULSE 95–106; RESP 18–20; TEMP 36–37.1; O2SAT 96–100
[2020-01-25] MEDS: ALBUMIN HUMAN 25% 25 GM/100 ML 100 ML IVPB ×2 (00:07→05:12)
--- NOTE | 2020-01-25 02:15 | PC.NURSE ---
Patient appears to be sleeping by the rise and fall of his chest. Respirations even and unlabored. No distress noted. Joiner catheter patent and draining isabel urine. Call light in reach.
[2020-01-25] MEDS: ALBUTEROL SULFATE (*SP) INHALER 8 PUFF INHALATION ×4 (05:30→20:57)
--- NOTE | 2020-01-25 06:00 | PC.NURSE ---
Scale on bed weighed patient abnormally high, so 2 nurses assisted patient to stand and attempted to zero the bed scale. Bed scale was not working correctly and would not zero out. Attempted twice. Patient would not tolerate standing again. Will pass to next shift to attempt to weigh patient. Call light in reach.
[2020-01-25 06:04] LABS: Hematocrit 24.4 % (37.0-46.0); Hemoglobin 8.2 g/dL (12.4-15.3); Mean Corpuscular HGB Conc 33.6 g/dL (32.0-36.0); Mean Corpuscular Hemoglobin 29.6 pg (27.0-31.0); Mean Corpuscular Volume 88.1 fL (78.0-102.0); Platelet Count Result 59 K/mm3 (150-420); Red Blood Count 2.77 M/mm3 (4.70-6.10); Red Cell Distribution Width 14.1 % (11.6-14.4); White Blood Count 7.5 K/mm3 (4.8-10.8)
[2020-01-25 06:18] LABS: Immature Platelet Fraction Pct 14.4 % (1.0-7.0)
[2020-01-25 06:25] LABS: Alanine Aminotransferase 70 U/L (16-63); Albumin Level 2.4 g/dL (3.4-5.0); Alkaline Phosphatase 146 U/L (46-116); Anion Gap 14.1 mmol/L (7-16); Aspartate Amino Transferase 134 U/L (15-37); Bilirubin,Total 1.9 mg/dL (0.00-1.00); Blood Urea Nitrogen 71 mg/dL (7-18); Calcium 7.5 mg/dL (8.5-10.1); Carbon Dioxide 24 mmol/L (21-32); Chloride 96 mmol/L (98-108); Estimated CRCL calculation 19 ml/min; Estimated Glomerular Filt Rate 16; Glucose 161 mg/dL (70-99); Magnesium 1.5 mg/dL (1.8-2.4); Osmolality Calculated 295 mOsm/kg (285-295); Potassium 3.1 mmol/L (3.5-5.1); Sodium 131 mmol/L (136-145); Total Protein 5.1 g/dL (6.4-8.2)
[2020-01-25 06:29] LABS: BNP 53 pg/mL (0-100)
[2020-01-25 06:38] LABS: CRP 9.6 mg/dL (0.0-0.9)
[2020-01-25] MEDS: SODIUM BICARBONATE 8.4% 150 MEQ in DEXTROSE 5% 1,000 ML 1,000 ML 115 ML IV CONT (07:37)
[2020-01-25] MEDS: LACTULOSE 20 GM/30 ML UDC 5 GM PO ×2 (09:09→17:30)
[2020-01-25] MEDS: MAGNESIUM SULF 2 GM/WATER 50ML 2 GM/50 ML BAG IVPB (09:10)
[2020-01-25] MEDS: THIAMINE HCL 100 MG TABLET 50 MG PO (09:11)
[2020-01-25] MEDS: FUROSEMIDE INJ 100 MG/10 ML VIAL 80 MG IV PUSH ×2 (09:11→17:30)
[2020-01-25] MEDS: POTASSIUM CHLORIDE 20 MEQ PACKET (FOR LIQUID) 40 MEQ PO ×2 (09:11→17:30)
[2020-01-25] MEDS: MAGNESIUM OXIDE 400 MG TABLET PO (09:12)
[2020-01-25] MEDS: FOLIC ACID 1 MG TABLET PO (09:12)
[2020-01-25 11:26] LABS: Ammonia 21 umol/L (11-32)
[2020-01-25 11:43] LABS: Troponin I < 0.02 ng/mL (0.00-0.056)
--- NOTE | 2020-01-25 11:51 | PM.IMPN ---
Progress Note: A&P Assessment and Plan (1) Elevated troponin: Code(s): R79.89 - Other specified abnormal findings of blood chemistry Status: Acute Assessment and Plan: o possibly secondary to trauma o troponins within normal limits o continue telemetry (2) Hypotension: Code(s): I95.9 - Hypotension, unspecified Status: Acute Assessment and Plan: o possibly secondary to dehydration improving blood pressure 112/66 o will hold patient's carvedilol, spironolactone o continue vital signs is ordered started dextrose 5 with 3 amps of bicarb at 100 mL/hour per oakes machine operator recommendations o (3) Altered mental status: Code(s): R41.82 - Altered mental status, unspecified Status: Acute Assessment and Plan: o possibly secondary to UTI o lactic acid elevated on admission 2.9 currently within normal limits o head CT negative o chest x-ray negative o ammonia level within normal limits o alcohol level within normal limits o COVID-19 pending (4) History of fall: Code(s): Z91.81 - History of falling Status: Acute Assessment and Plan: possibly secondary to UTI versus mechanical fall o will start physical therapy/occupational therapy once COVID-19 is negative o CK level elevated on admission at 1000 currently within normal limits (5) Rhabdomyolysis: Qualifiers: Rhabdomyolysis type: non-traumatic Qualified Code(s): M62.82 - Rhabdomyolysis Code(s): M62.82 - Rhabdomyolysis Status: Acute Assessment and Plan: secondary to mechanical fall o creatinine on admission 5.33 slight improvement currently 3.68 trending down o continue to hydrate patient o I&Os review patient positive 3000 post 5 L of fluid o BMP in the a.m. (6) Acute renal failure (ARF): Qualifiers: Acute renal failure type: unspecified Qualified Code(s): N17.9 - Acute kidney failure, unspecified Code(s): N17.9 - Acute kidney failure, unspecified Status: Acute Assessment and Plan: o secondary to rhabdo caused by a mechanical fall o patient's baseline appears to be 1.10 creatinine improving 4.16 o patient will receive dextrose 5 with 3 amps of bicarb per nephro recommendations o BMP in the a.m. o renal dose all medication o avoid nephrotoxic agents patient received albumin 6 hours for 24 hours patient is receive 80 mg of Lasix b.i.d. I&Os review (7) UTI (urinary tract infection): Qualifiers: Hematuria presence: without hematuria Urinary tract infection type: acute cystitis Qualified Code(s): N30.00 - Acute cystitis without hematuria Code(s): N39.0 - Urinary tract infection, site not specified Status: Acute Assessment and Plan: o UA indicates leukocyte esterases, wbc's and bacteria indication of UTI o UA and blood culture with a growth of E coli. Levaquin will cover o continue Levaquin with renal dosage day4 o white blood cells within normal limits o patient afebrile o will continue to monitor (8) Hypomagnesemia: Code(s): E83.42 - Hypomagnesemia Status: Acute Assessment and Plan: resolved o on admission patient magnesium low, patient given Mag rider o magnesium decreased will receive Mag greater o will continue to monitor and supplement as needed (9) Acute dehydration: Code(s): E86.0 - Dehydration Status: Acute Assessment and Plan: o as evidence by dry mucous membranes o will continue to hydrate patient o will hold patient's spironolactone (10) Cirrhosis: Qualifiers: Hepatic cirrhosis type: other cirrhosis Qualified Code(s): K74.69 - Other cirrhosis of liver Code(s): K74.60 - Unspecified cirrhosis of liver Status: Acute Assessment and Plan: patient AST and alt elevated but improving o continue patient's lactulose o patient amm
[2020-01-25] MEDS: levoFLOXacin 250 MG/D5W 50 ML 250 MG/50 ML BAG 50 MG IVPB (23:59)
[2020-01-26] VITALS: BP 105/63; PULSE 102; RESP 18; TEMP 37.1; O2SAT 96
[2020-01-26 04:00] VITALS: BP 104/66; PULSE 88; RESP 18; TEMP 36.6; O2SAT 97
[2020-01-26 05:53] LABS: Hematocrit 24.6 % (37.0-46.0); Hemoglobin 8.3 g/dL (12.4-15.3); Immature Platelet Fraction Pct 13.3 % (1.0-7.0); Mean Corpuscular HGB Conc 33.7 g/dL (32.0-36.0); Mean Corpuscular Hemoglobin 29.1 pg (27.0-31.0); Mean Corpuscular Volume 86.3 fL (78.0-102.0); Platelet Count Result 77 K/mm3 (150-420); Red Blood Count 2.85 M/mm3 (4.70-6.10); Red Cell Distribution Width 14.2 % (11.6-14.4); White Blood Count 9.9 K/mm3 (4.8-10.8)
[2020-01-26] MEDS: ALBUTEROL SULFATE (*SP) INHALER 8 PUFF INHALATION (06:15)
[2020-01-26 06:22] LABS: Alanine Aminotransferase 81 U/L (16-63); Albumin Level 2.3 g/dL (3.4-5.0); Alkaline Phosphatase 212 U/L (46-116); Anion Gap 13.3 mmol/L (7-16); Aspartate Amino Transferase 197 U/L (15-37); Band Neutrophils Percent 2 % (0-6); Bilirubin,Total 2.4 mg/dL (0.00-1.00); Blood Urea Nitrogen 70 mg/dL (7-18); Calcium 7.5 mg/dL (8.5-10.1); Carbon Dioxide 27 mmol/L (21-32); Chloride 96 mmol/L (98-108); Creatine Kinase 37 U/L (39-308); Eosinophils Absolute Manual 0.29 K/mm3 (0.02-0.5); Eosinophils Percent Manual 3 % (1-6); Estimated CRCL calculation 20 ml/min; Estimated Glomerular Filt Rate 18; Glucose 104 mg/dL (70-99); Lymphocytes Absolute Manual 1.28 K/mm3 (1.1-4.5); Lymphocytes Percent Manual 13 % (18-44); Magnesium 1.7 mg/dL (1.8-2.4); Monocytes Absolute Manual 0.89 K/mm3 (0.1-0.90); Monocytes Percent Manual 9 % (3-9); Neutrophils Absolute Manual 7.42 K/mm3 (1.3-6.7); Neutrophils Percent Manual 73 % (46-73); Osmolality Calculated 296 mOsm/kg (285-295); Platelet Estimate Decreased (Adequate); Potassium 3.3 mmol/L (3.5-5.1); Sodium 133 mmol/L (136-145); Total Cells Counted 100; Total Protein 5.1 g/dL (6.4-8.2)
[2020-01-26 08:00] VITALS: BP 102/64; PULSE 94; RESP 18; TEMP 36.9; O2SAT 96
[2020-01-26] MEDS: LACTULOSE 20 GM/30 ML UDC 5 GM PO ×2 (10:05→16:20)
[2020-01-26] MEDS: POTASSIUM CHLORIDE 20 MEQ PACKET (FOR LIQUID) 40 MEQ PO ×2 (10:06→16:21)
[2020-01-26] MEDS: THIAMINE HCL 100 MG TABLET 50 MG PO (10:06)
[2020-01-26] MEDS: FOLIC ACID 1 MG TABLET PO (10:06)
[2020-01-26] MEDS: MAGNESIUM OXIDE 400 MG TABLET PO (10:06)
[2020-01-26] MEDS: FUROSEMIDE INJ 100 MG/10 ML VIAL 80 MG IV PUSH (10:07)
[2020-01-26 12:00] VITALS: BP 101/58; PULSE 101; RESP 18; TEMP 36.7; O2SAT 97
[2020-01-26] MEDS: ALBUTEROL SULFATE (*SP) INHALER 2 PUFF INHALATION ×3 (12:18→20:58)
[2020-01-26 12:46] LABS: Iron 11 ug/dL (65-175); Percent Iron Saturation 7 % (12-57)
[2020-01-26 12:48] LABS: Phosphorus 2.4 mg/dL (2.6-4.7)
[2020-01-26] MEDS: MAGNESIUM SULF 2 GM/WATER 50ML 2 GM/50 ML BAG IVPB (14:01)
[2020-01-26 14:55] LABS: CRP 11.2 mg/dL (0.0-0.9)
[2020-01-26 14:56] LABS: BNP 280 pg/mL (0-100)
[2020-01-26 16:00] VITALS: BP 104/66; PULSE 82; RESP 18; TEMP 36.6; O2SAT 98
[2020-01-26] MEDS: POLYSACCHARIDE IRON COMPLEX 150 MG CAPSULE PO (16:21)
--- NOTE | 2020-01-26 16:52 | PM.IMPN ---
Progress Note: A&P Assessment and Plan (1) Elevated troponin: Code(s): R79.89 - Other specified abnormal findings of blood chemistry <Myra Carr NP - Last Filed: 01/26/20 17:42> Status: Acute <Myra Carr NP - Last Filed: 01/26/20 17:42> Assessment and Plan: o possibly secondary to trauma o troponins within normal limits o continue telemetry His earlier troponins were elevated, and likely due to rhabdo affects. His last troponin done in the last 2 days was negative and within normal limits. No complaints of chest pain or chest pressure or shortness of breath at this time. Resolved <Myra Carr NP - Last Filed: 01/26/20 17:42> (2) Hypotension: Code(s): I95.9 - Hypotension, unspecified <Myra Carr NP - Last Filed: 01/26/20 17:42> Status: Acute <Myra Carr NP - Last Filed: 01/26/20 17:42> Assessment and Plan: o possibly secondary to dehydration improving blood pressure 112/66 o will hold patient's carvedilol, spironolactone o continue vital signs is ordered started dextrose 5 with 3 amps of bicarb at 100 mL/hour per sludge filtration attendant recommendations o his dextrose to with bicarb was discontinued last night. Per review of his labs we will not restart the bicarb a dextrose at this time his vital signs seems to be stable today with no hypotension systolics greater than 100 <Myra Carr NP - Last Filed: 01/26/20 17:42> (3) Altered mental status: Code(s): R41.82 - Altered mental status, unspecified <Myra Carr NP - Last Filed: 01/26/20 17:42> Status: Acute <Myra Carr NP - Last Filed: 01/26/20 17:42> Assessment and Plan: o possibly secondary to UTI or chronic alcohol use Or chronic liver failure or chronic renal failure o lactic acid elevated on admission 2.9 currently within normal limits o head CT negative o chest x-ray negative o ammonia level within normal limits o alcohol level within normal limits o COVID-19 pending will consider a mini-mental exam tomorrow and discuss with PT OT whether patient is making progress or has concerns <Myra Carr NP - Last Filed: 01/26/20 17:42> (4) History of fall: Code(s): Z91.81 - History of falling <Myra Carr NP - Last Filed: 01/26/20 17:42> Status: Acute <Myra Carr NP - Last Filed: 01/26/20 17:42> Assessment and Plan: possibly secondary to UTI versus mechanical fall o will start physical therapy/occupational therapy once COVID-19 is negative o CK level elevated on admission at 1000 currently within normal limits <Myra Carr NP - Last Filed: 01/26/20 17:42> (5) Rhabdomyolysis: Qualifiers: Rhabdomyolysis type: non-traumatic Qualified Code(s): M62.82 - Rhabdomyolysis <Myra Carr NP - Last Filed: 01/26/20 17:42> Code(s): M62.82 - Rhabdomyolysis <Myra Carr NP - Last Filed: 01/26/20 17:42> Status: Acute <Myra Carr NP - Last Filed: 01/26/20 17:42> Assessment and Plan: secondary to mechanical fall o creatinine on admission 5.33 slight improvement currently 3.43 trending down o continue to orally hydrate patient o I&Os reviewed , lasix is improving output per benites. o BMP in the a.m. ordered a BNP for today and will continue to monitor for improvement in liver function test as well as bili test. Will increase his lactulose dosing from 5 mg b.i.d. to 10 mg t.i.d. especially with his bili and LFTs increasing and no record of a bowel movement output for the last 2 or 3 days. <Myra Carr NP - Last Filed: 01/26/20 17:42> (6) Acute renal failure (ARF): Qualifiers: Acute renal failure type: unspecified Qualified Code(s): N17.9 - Acute kidney failure, unspecified <Myra Carr NP - Last Filed: 01/26/20 17:42> Code(s): N17.9 - Acute kidn
--- NOTE | 2020-01-26 18:10 | P.PNCROSS_ITS ---
Event Note Event Note Event Note: Chart reviewed. Pt. discussed with Myra Carr. Pt oriented to place, time, date. Sitting in chair wearing back brace. Needs assistance sitting up. Slurred speech significantly improved from 2 days ago. Pul: few wheezes. Scattered rales left base. Abdomen remains distended and nontender. Assessment: -Urosepsis - E coli urine and blood culture. Continue renal dose of levaquin. -Acute kidney disease - Slow dropping of creatinine. Etiology could be all at least partly caused by -Rhabdomyolysis. ATN and hepatorenal syndrome also in DDX. Continue to diurese. Follow daily weights, creatinine. -Elevated direct bilirubin and liver function tests - markers dropping. DDx i ncludes hepatic failure Agree with plan laid out by Myra Carr.
[2020-01-26 18:46] LABS: Add Urine Microscopic? YES; Appearance Urine Clear (Clear); Bilirubin Urine Negative (Negative); Blood Urine 2+ (Negative); Color Urine Yellow (Yellow); Glucose Urine UA Negative (Negative); Ketones Urine Negative (Negative); Leukocyte Esterase Ur 1+ LEU/UL (Negative); Nitrate Urine Negative (Negative); Protein Urine Negative (Negative); Specific Grav Ur <= 1.005 (1.010-1.020)
[2020-01-26 18:53] LABS: Bacteria Urine Trace /hpf; RBC Urine 0-2 /hpf (0-2); Squamous Epithelial Cell Urine Rare /hpf (Few); WBC Urine 0-3 /hpf (0-3)
[2020-01-26 20:00] VITALS: BP 113/69; PULSE 91; PULSE 99; RESP 18; TEMP 36.9; O2SAT 98
[2020-01-27] VITALS: BP 101/60; PULSE 85; PULSE 88; RESP 18; TEMP 36.6; O2SAT 98
[2020-01-27] MEDS: levoFLOXacin 250 MG/D5W 50 ML 250 MG/50 ML BAG 50 MG IVPB (01:34)
[2020-01-27 03:21] VITALS: BP 108/69; PULSE 86; RESP 18; TEMP 36.6; O2SAT 96
[2020-01-27 04:00] VITALS: PULSE 85
[2020-01-27 05:38] LABS: Hematocrit 24.9 % (37.0-46.0); Hemoglobin 8.3 g/dL (12.4-15.3); Mean Corpuscular HGB Conc 33.3 g/dL (32.0-36.0); Mean Corpuscular Volume 87.1 fL (78.0-102.0); Mean Platelet Volume 14.6 fl (8.7-11.0); Platelet Count Result 112 K/mm3 (150-420); Red Blood Count 2.86 M/mm3 (4.70-6.10); Red Cell Distribution Width 14.5 % (11.6-14.4); White Blood Count 10.1 K/mm3 (4.8-10.8)
[2020-01-27] MEDS: ALBUTEROL SULFATE (*SP) INHALER 2 PUFF INHALATION ×3 (06:06→14:37)
[2020-01-27 06:11] LABS: Alanine Aminotransferase 83 U/L (16-63); Albumin Level 2.2 g/dL (3.4-5.0); Alkaline Phosphatase 253 U/L (46-116); Anion Gap 11.8 mmol/L (7-16); Aspartate Amino Transferase 193 U/L (15-37); Bilirubin,Total 2.4 mg/dL (0.00-1.00); Blood Urea Nitrogen 71 mg/dL (7-18); Calcium 8.4 mg/dL (8.5-10.1); Carbon Dioxide 29 mmol/L (21-32); Chloride 96 mmol/L (98-108); Estimated CRCL calculation 22 ml/min; Estimated Glomerular Filt Rate 20; Glucose 102 mg/dL (70-99); Magnesium 1.7 mg/dL (1.8-2.4); Osmolality Calculated 296 mOsm/kg (285-295); Potassium 3.8 mmol/L (3.5-5.1); Sodium 133 mmol/L (136-145); Total Protein 5.5 g/dL (6.4-8.2)
[2020-01-27 08:00] VITALS: BP 112/69; PULSE 84; PULSE 94; RESP 18; TEMP 36.6; O2SAT 97
--- NOTE | 2020-01-27 08:00 | ECHO_ITS ---
Patient Info Name: Armen Cunningham Age: 69 years : 1950 Gender: Male Ht: 71 in Wt: 209 lbs BSA: 2.20 m2 HR: 94 bpm BP: 112 / 69 mmHg Heart Rhythm: Left Bundle Branch Block Technical Quality: Fair Exam Date: 01/27/2020 12:35 PM Exam Location: [facility] Patient Status: Inpatient Admit Date: 01/21/2020 Staff Ordering Physician: Myra Carr NP Planetarium Technician: Aron Arroyo RDCS Attending Provider: Armen Osuna MD Referring Physician: Bruno FU; Exam Type: CA echo doppler color flow Study Info Indications R53.1 - Weakness Complete two-dimensional, color flow and Doppler transthoracic echocardiogram is performed. History/Risk Factors Weakness; rhabdomylosis, hypotension, elevated trops, altered mental status. Summary 1. Left ventricular chamber dimension is normal. 2. Left ventricular systolic function is normal, estimated at 60-65%. 3. There is mildly increased left ventricular wall thickness. 4. The left ventricular diastolic function is grade I diastolic dysfunction. 5. E/e' 11 is mildly elevated. 6. The aortic valve is not well visualized. 7. There is moderate aortic valve sclerosis. 8. There is mild to moderate aortic valve stenosis based on a valve gradient and peak velocity. 9. No pulmonary hypertension, estimated pulmonary arterial systolic pressure is 34 mmHg. Left Ventricle E/e' 11 is mildly elevated. Left ventricular chamber dimension is normal. Left ventricular systolic function is normal, estimated at 60-65%. There is mildly increased left ventricular wall thickness. The left ventricular diastolic function is grade I diastolic dysfunction. Right Ventricle Right ventricular chamber dimension is normal. Right ventricular systolic function is normal. Left Atria Left atrial chamber dimension is normal. Right Atria Right atrial chamber dimension is normal. Aortic Valve There is mild to moderate aortic valve stenosis based on a valve gradient and peak velocity. Probably trileaflet aortic valve. The aortic valve is not well visualized. There is moderate aortic valve sclerosis. There is no aortic valve regurgitation. Pulmonic Valve There is no pulmonic regurgitation. Mitral Valve There is no mitral valve stenosis. There is no mitral valve regurgitation. Tricuspid Valve There is no tricuspid valve regurgitation. No pulmonary hypertension, estimated pulmonary arterial systolic pressure is 34 mmHg. Pericardium/Pleural There is no pericardial effusion. Inferior Vena Cava Normal inferior vena cava with >50% collapse upon inspiration consistent with normal right atrial pressure, 5 mmHg. Aorta The aortic root size at the sinus of Valsalva is normal. Left Ventricular Outflow Tract Name Value Normal LVOT 2D LVOT Diameter 2.0 cm Mitral Valve Name Value Normal MV Doppler MV Decel [place] 735 cm/s2 MV PHT 36 ms
[2020-01-27] MEDS: LACTULOSE 20 GM/30 ML UDC 10 GM PO ×3 (08:39→17:21)
[2020-01-27] MEDS: THIAMINE HCL 100 MG TABLET 50 MG PO (08:42)
[2020-01-27] MEDS: FOLIC ACID 1 MG TABLET PO (08:43)
[2020-01-27] MEDS: POLYSACCHARIDE IRON COMPLEX 150 MG CAPSULE PO ×2 (08:43→17:21)
[2020-01-27] MEDS: MAGNESIUM OXIDE 400 MG TABLET PO (08:43)
[2020-01-27] MEDS: FUROSEMIDE INJ 100 MG/10 ML VIAL 40 MG IV PUSH (08:44)
[2020-01-27] MEDS: POTASSIUM CHLORIDE 20 MEQ PACKET (FOR LIQUID) 40 MEQ PO ×2 (08:45→17:27)
[2020-01-27 12:00] VITALS: BP 112/72; PULSE 74; RESP 18; TEMP 36.1; O2SAT 97
--- NOTE | 2020-01-27 12:38 | PM.DS ---
DS: Diagnosis Admitting Diagnosis Admitting Diagnosis: Rhabdomyolysis Discharge Diagnosis (1) Elevated troponin: Code(s): R79.89 - Other specified abnormal findings of blood chemistry Status: Acute Assessment and Plan: o possibly secondary to trauma o troponins within normal limits o continue telemetry His earlier troponins were elevated, and likely due to rhabdo affects. His last troponin done in the last 2 days was negative and within normal limits. No complaints of chest pain or chest pressure or shortness of breath at this time. Resolved (2) Hypotension: Code(s): I95.9 - Hypotension, unspecified Status: Acute Assessment and Plan: o possibly secondary to dehydration improving blood pressure 112/66 o will hold patient's carvedilol, spironolactone o continue vital signs is ordered started dextrose 5 with 3 amps of bicarb at 100 mL/hour per right of way manager recommendations - all completed and continues to improve. o his dextrose to with bicarb was discontinued last night. Per review of his labs we will not restart the bicarb a dextrose at this time his vital signs seems to be stable today with no hypotension systolics, all have been greater than 100 (3) Altered mental status: Code(s): R41.82 - Altered mental status, unspecified Status: Acute Assessment and Plan: o possibly secondary to UTI or chronic alcohol use Or chronic liver failure or chronic renal failure o lactic acid elevated on admission 2.9 currently within normal limits o head CT negative o chest x-ray negative o ammonia level within normal limits o alcohol level within normal limits o COVID-19 pending will consider a mini-mental exam tomorrow and discuss with PT OT whether patient is making progress or has concerns patient has agreed to transfer to [facility] starting today for further strengthening, IV antibiotics, and monitoring. (4) History of fall: Code(s): Z91.81 - History of falling Status: Acute Assessment and Plan: possibly secondary to UTI versus mechanical fall o will start physical therapy/occupational therapy once COVID-19 is negative o CK level elevated on admission at 1000 currently within normal limits patient has agreed to transfer to [facility] starting today for further strengthening, IV antibiotics, and monitoring. (5) Rhabdomyolysis: Qualifiers: Rhabdomyolysis type: non-traumatic Qualified Code(s): M62.82 - Rhabdomyolysis Code(s): M62.82 - Rhabdomyolysis Status: Acute Assessment and Plan: secondary to mechanical fall o creatinine on admission 5.33 slight improvement currently 3.11 trending down o continue to orally hydrate patient o I&Os reviewed , lasix is improving output per benites. o BMP in the a.m. ordered a BNP and will continue to monitor for improvement in liver function test as well as bili test. Will increase his lactulose dosing from 5 mg b.i.d. to 10 mg t.i.d. especially with his bili and LFTs increasing and no record of a bowel movement output for the last 2 or 3 days. Enema gained a bowel movement yesterday. (6) Acute renal failure (ARF): Qualifiers: Acute renal failure type: unspecified Qualified Code(s): N17.9 - Acute kidney failure, unspecified Code(s): N17.9 - Acute kidney failure, unspecified Status: Acute Assessment and Plan: o secondary to rhabdo caused by a mechanical fall o patient's baseline appears to be 1.10 creatinine improving , Improved from 5.3 down to 3.11 today. o patient did receive dextrose 5 with 3 amps of bicarb per nephro recommendations o BMP in the a.m. o renal dose all medication o avoid nephrotoxic agents patient received albumin 6 hours for 24 hours patient did get IV 80 mg of Lasix b.i.d. changed to 40 mg IV lasix daily but didn't put out enough urine on the once a d
[2020-01-27] MEDS: BISACODYL 10 MG SUPPOSITORY RECTAL (13:10)
--- NOTE | 2020-01-27 13:53 | PC.NURSE ---
echo being done. did n't want benites out or supp till that was over
[2020-01-27 14:46] LABS: Occult Blood Positive (Negative)
[2020-01-27] MEDS: MAGNESIUM SULF 2 GM/WATER 50ML 2 GM/50 ML BAG IVPB (15:38)
[2020-01-27 16:00] VITALS: BP 110/63; PULSE 74; RESP 18; TEMP 36.1; O2SAT 96
--- NOTE | 2020-01-27 16:21 | PC.NURSE ---
1430 benites out. sse given with very lg results of soft brown stool.
--- NOTE | 2020-01-27 19:17 | PM.EVENT ---
Event Note Event Note Event Note: Patient complains of back pain. States he has been eating better. Unable to give day or date, Much more alert than yesterday. Mucous membranes are moist. Lungs clear to auscultation bilaterally. Regular rate and rhythm without murmur rub gallop. Abdomen is soft, mildly distended, with positive bowel sounds. 2+ pitting edema at the lower extremities. Continue IV antibiotics for a total of 7 days and if at that point he is clinically improving we will consider switching him to oral. Continue fluid restriction and monitoring of electrolytes. We can make a swing bed today and initiate physical therapy. I have examined the patient reviewed the chart. I discussed the patient's care with A Bruno CORTEZ and agree with her assessment and plan.
[2020-01-29 12:33] LABS: Red Blood Cell Folate >1000 ng/mL RBC (>280)
== END 2020-01-27 17:40 | disposition swing bed (61) | DRG 557 ==
LOC: CHSED 23:47 → CHS2ND 01-22 07:23
PROVIDERS: Nurse Practitioner; Admitting Provider Emergency Medicine; Emergency Provider Emergency Medicine; Visit Provider Emergency Medicine
DX: M62.82 Rhabdomyolysis (principal); A41.51 Sepsis due to Escherichia coli [E. coli]; N17.9 Acute kidney failure, unspecified; N39.0 Urinary tract infection, site not specified; I85.10 Secondary esophageal varices without bleeding; F10.20 Alcohol dependence, uncomplicated; K74.60 Unspecified cirrhosis of liver; I10 Essential (primary) hypertension; E86.0 Dehydration; I95.9 Hypotension, unspecified; E83.42 Hypomagnesemia; K70.31 Alcoholic cirrhosis of liver with ascites; I12.9 Hypertensive chronic kidney disease with stage 1 through stage 4 chronic kidney disease, or unspecified chronic kidney disease; N18.9 Chronic kidney disease, unspecified; R47.89 Other speech disturbances; Z91.81 History of falling; Z89.021 Acquired absence of right finger(s); Z11.59 Encounter for screening for other viral diseases
CPT/HCPCS: 36415; 70450; 71045; 74176; 80053; 80307; 81001; 82140; 82248; 82272; 82550; 82747; 83540; 83550; 83605; 83735; 83880; 84100; 84484; 85014; 85018; 85025; 85027; 85055; 85610; 85730; 86140; 86850; 86900; 86901; 87040; 87077; 87086; 87088; 87186; 87635; 92522; 93005; 93306; 96365; 96367; 97110; 97162; 97530; 97535; 99285; A9270; J1940; J1956; J3411; J3475; J7030; J7042; J7070; J7121; P9047; U0003

== ENCOUNTER 2020-01-27 17:44 | Inpatient (IN) | payer MEDICARE, OTHER, SELFPAY ==
[2020-01-27 18:29] VITALS: BMI 28.7
--- NOTE | 2020-01-27 18:35 | PC.NURSE ---
1739 transfered to [facility] for iv therapy and weakness. he is alert and at times he is hard to understand. this normal for him. voided in urinal..
[2020-01-27 18:40] VITALS: BP 104/74; PULSE 88; RESP 18; TEMP 36.6; O2SAT 97
--- NOTE | 2020-01-27 22:35 | PC.NURSE ---
pt sleeping, respirations even and regular, no evidence of distress noted
[2020-01-28] MEDS: levoFLOXacin 250 MG/D5W 50 ML 250 MG/50 ML BAG 50 MG IVPB (00:24)
[2020-01-28 00:25] VITALS: BP 111/69; PULSE 93; RESP 20; TEMP 36.8; O2SAT 97
--- NOTE | 2020-01-28 04:05 | PC.NURSE ---
[facility] called to verify orders for albuterol.
--- NOTE | 2020-01-28 04:08 | PC.NURSE ---
Dr. Del Real contacted to clarify orders.
[2020-01-28] MEDS: ALBUTEROL SULFATE (*SP) INHALER 2 PUFF INHALATION ×4 (06:38→19:33)
[2020-01-28 07:15] VITALS: BP 115/70; PULSE 94; RESP 18; TEMP 36.7; O2SAT 97
--- NOTE | 2020-01-28 07:46 | PC.NURSE ---
Physical therapy in to see patient and get up for breakfast
--- NOTE | 2020-01-28 08:14 | PC.NURSE ---
In chair eating breakfast
[2020-01-28] MEDS: POLYSACCHARIDE IRON COMPLEX 150 MG CAPSULE PO ×2 (08:40→17:18)
[2020-01-28] MEDS: LACTULOSE 20 GM/30 ML UDC 10 GM PO (08:40)
[2020-01-28] MEDS: FOLIC ACID 1 MG TABLET PO (08:41)
[2020-01-28] MEDS: MAGNESIUM OXIDE 400 MG TABLET PO (08:41)
[2020-01-28] MEDS: THIAMINE HCL 100 MG TABLET 50 MG PO (08:41)
[2020-01-28] MEDS: FUROSEMIDE 40 MG TABLET PO (08:41)
[2020-01-28] MEDS: POTASSIUM CHLORIDE 20 MEQ PACKET (FOR LIQUID) 40 MEQ PO (08:54)
--- NOTE | 2020-01-28 09:19 | PC.NURSE ---
Used gait belt with walker and needed full assist to stand used, patient shuffle gait from chair to commode, unsteady, full assist for ambulation to keep patient steady
--- NOTE | 2020-01-28 09:40 | PC.NURSE ---
No results on commode, x2 persona assist back to bed, OT in to see patient for eval at this time
[2020-01-28 10:50] LABS: Hematocrit 26.3 % (37.0-46.0); Hemoglobin 8.9 g/dL (12.4-15.3); Mean Corpuscular HGB Conc 33.8 g/dL (32.0-36.0); Mean Corpuscular Hemoglobin 29.6 pg (27.0-31.0); Mean Corpuscular Volume 87.4 fL (78.0-102.0); Mean Platelet Volume 13.7 fl (8.7-11.0); Platelet Count Result 162 K/mm3 (150-420); Red Blood Count 3.01 M/mm3 (4.70-6.10); Red Cell Distribution Width 14.7 % (11.6-14.4); White Blood Count 9.5 K/mm3 (4.8-10.8)
[2020-01-28 10:57] LABS: BNP 105 pg/mL (0-100)
[2020-01-28 10:58] LABS: Alanine Aminotransferase 75 U/L (16-63); Albumin Level 2.3 g/dL (3.4-5.0); Alkaline Phosphatase 309 U/L (46-116); Anion Gap 10.9 mmol/L (7-16); Aspartate Amino Transferase 149 U/L (15-37); Bilirubin,Total 2.3 mg/dL (0.00-1.00); Blood Urea Nitrogen 69 mg/dL (7-18); Calcium 9.1 mg/dL (8.5-10.1); Carbon Dioxide 31 mmol/L (21-32); Chloride 96 mmol/L (98-108); Estimated CRCL calculation 25 ml/min; Estimated Glomerular Filt Rate 23; Glucose 152 mg/dL (70-99); Osmolality Calculated 301 mOsm/kg (285-295); Potassium 3.9 mmol/L (3.5-5.1); Sodium 134 mmol/L (136-145)
[2020-01-28 11:00] LABS: Ammonia 12 umol/L (11-32); Magnesium 1.6 mg/dL (1.8-2.4)
[2020-01-28] MEDS: FUROSEMIDE INJ 40 MG/4 ML VIAL 20 MG IV PUSH (11:42)
[2020-01-28] MEDS: LACTULOSE 20 GM/30 ML UDC 30 GM PO ×2 (13:13→17:18)
--- NOTE | 2020-01-28 13:33 | PM.IMHP ---
H&P: HPI History of Present Illness Chief complaint: weakness Narrative: Armen Cunningham is a 69 year old male patient needing and agreed to REHAB Swing bed hospitalization for further strengthening, IV Antibiotics due to Urosepsis, further monitoring of Constipation and Liver failure and Renal failure and Anemia. He will continue to receive IV Levaquin for his urosepsis and Klebsiella infections of the blood and urine. His Joiner was discontinued yesterday successfully and the patient has been voiding since. Will continue strict I and Os. He will begin PT and OT today as well as other therapeutic activities to work on strengthening his legs and arms and core while following his previous surgery precautions and maintaining his back brace as ordered. His acute renal failure continues to improve with a creatinine of 3.11 today. I have repeated labs for today and for Saturday. Due to some increased wheezing today I changed his Lasix from 40 q.day to 40 b.i.d. and will continue to monitor his output as well as his lung function. He continues to demonstrate on his incentive spirometer that he can reach 1500 mil volumes. But when asked to take good deep inspiratory breaths, he does elicit a cough. No fevers noted and white count remains stable at 9.5. Review of Systems Review of Systems: All systems reviewed & are unremarkable except as noted in HPI and below Constitutional: Constitutional: Reports as per HPI, Denies chills, Denies difficulty sleeping, Denies excessive sweating, Reports fatigue, Denies headache(s), Denies increased appetite, Reports lethargy, Denies snoring, Reports weakness and Denies weight gain Eyes: Eyes: Reports as per HPI, Denies blurry vision, Denies exophthalmos, Denies diplopia, Denies floaters, Denies loss of peripheral vision and Denies photophobia ENT: Reports as per HPI, Reports Normal hearing present, Denies dysphagia, Denies facial pain, Denies headache(s), Denies epistaxis, Denies nasal congestion, Denies nasal discharge, Denies odynophagia and Denies tinnitus Cardiovascular: Cardiovascular: Reports as per HPI, Denies chest pain, Denies diaphoresis, Denies pedal edema, Denies leg edema, Denies lightheadedness and Denies palpitations Respiratory: Respiratory: Reports as per HPI, Reports chest congestion, Reports cough, Denies hemoptysis, Denies dyspnea, Denies dyspnea on exertion, Denies snoring and Reports wheezing Gastrointestinal: Gastrointestinal: Reports as per HPI, Denies abdominal pain, Denies melena, Denies bloating, Denies hematochezia, Reports constipation, Denies heartburn, Denies diarrhea, Denies nausea, Denies odynophagia, Denies vomiting and Denies hematemesis Genitourinary: Genitourinary: Reports as per HPI, Denies hematuria, Denies dysuria, Denies flank pain, Denies urinary frequency, Denies urinary hesitancy, Denies urinary incontinence and Denies urinary urgency Musculoskeletal: Musculoskeletal: Reports as per HPI, Reports back pain, Reports myalgias, Reports arthralgias, Denies joint swelling, Reports neck pain and Reports stiffness Integumentary/Breasts: Skin/Breast: Reports as per HPI and Denies pruritus Neurologic: Reports as per HPI, Reports abnormal gait and Denies headache(s) Psychiatric: Psychiatric: Reports as per HPI, Denies anxiety, Denies behavioral changes and Reports confusion Endocrine: Endocrine: Denies excessive sweating PMFSH Family History Family History (Updated 01/27/20 @ 18:33 by Aleyda Dyson RN) Father Diabetes mellitus Other Unknown family medical history Social History Social History Smoking status: Unknown if ever smoked Alcohol intake: current Substance use: unknown Substance use type: does not use Last use: last alcoholic drink 2 days ago per ER report Gender identity (if verbalized by the patient): Male Spiritual care concerns: No Agree to blood products: No Meds H
--- NOTE | 2020-01-28 13:43 | PC.NURSE ---
Ot in to work with patient, setting up bath at bedside, incontinent of urine
[2020-01-28 15:46] VITALS: BP 108/73; PULSE 94; RESP 18; TEMP 36.5; O2SAT 95
[2020-01-28] MEDS: FUROSEMIDE INJ 40 MG/4 ML VIAL IV PUSH (19:14)
[2020-01-29] VITALS: BP 125/80; PULSE 96; RESP 20; TEMP 36.9; O2SAT 97
[2020-01-29] MEDS: levoFLOXacin 250 MG/D5W 50 ML 250 MG/50 ML BAG 50 MG IVPB (00:28)
[2020-01-29] MEDS: ALBUTEROL SULFATE (*SP) INHALER 2 PUFF INHALATION ×4 (05:53→20:11)
--- NOTE | 2020-01-29 07:10 | PC.NURSE ---
Contact guard assist x2 to get from chair to commode with no results, back to chair to await breakfast
[2020-01-29 07:49] VITALS: BP 90/57; PULSE 78; RESP 18; TEMP 36.6; O2SAT 99
--- NOTE | 2020-01-29 08:20 | PC.NURSE ---
Therapy in to see patient
[2020-01-29] MEDS: POTASSIUM CHLORIDE 20 MEQ PACKET (FOR LIQUID) 40 MEQ PO (09:05)
[2020-01-29] MEDS: THIAMINE HCL 100 MG TABLET 50 MG PO (09:05)
[2020-01-29] MEDS: FUROSEMIDE INJ 40 MG/4 ML VIAL IV PUSH ×2 (09:06→16:42)
[2020-01-29] MEDS: POLYSACCHARIDE IRON COMPLEX 150 MG CAPSULE PO ×2 (09:07→16:43)
[2020-01-29] MEDS: FOLIC ACID 1 MG TABLET PO (09:07)
[2020-01-29] MEDS: MAGNESIUM OXIDE 400 MG TABLET PO (09:07)
--- NOTE | 2020-01-29 10:16 | PC.NURSE ---
Pain med given for back pain, assisted to readjust in bed
--- NOTE | 2020-01-29 11:24 | PC.NURSE ---
Talking on phone with case management
--- NOTE | 2020-01-29 12:27 | PCDIET ---
Sat up on edge of bed for lunch, minimal assist needed to get to sitting position, moderate assist to get legs back in bed, ate fair for lunch
[2020-01-29 15:37] VITALS: BP 121/74; PULSE 90; RESP 18; TEMP 36.6; O2SAT 99
[2020-01-30] VITALS: BP 128/74; PULSE 94; RESP 18; TEMP 36.8; O2SAT 97
[2020-01-30 00:03] VITALS: TEMP 36.8
[2020-01-30] MEDS: levoFLOXacin 250 MG/D5W 50 ML 250 MG/50 ML BAG 50 MG IVPB (01:07)
[2020-01-30 05:44] LABS: Hematocrit 26.7 % (37.0-46.0); Hemoglobin 8.8 g/dL (12.4-15.3); Mean Corpuscular Hemoglobin 28.6 pg (27.0-31.0); Mean Corpuscular Volume 86.7 fL (78.0-102.0); Mean Platelet Volume 12.8 fl (8.7-11.0); Platelet Count Result 201 K/mm3 (150-420); Red Blood Count 3.08 M/mm3 (4.70-6.10); Red Cell Distribution Width 14.9 % (11.6-14.4); White Blood Count 9.2 K/mm3 (4.8-10.8)
[2020-01-30 05:58] LABS: BNP 193 pg/mL (0-100)
[2020-01-30 06:09] LABS: Alanine Aminotransferase 58 U/L (16-63); Albumin Level 2.4 g/dL (3.4-5.0); Alkaline Phosphatase 294 U/L (46-116); Anion Gap 11.4 mmol/L (7-16); Aspartate Amino Transferase 97 U/L (15-37); Bilirubin,Total 1.9 mg/dL (0.00-1.00); Blood Urea Nitrogen 56 mg/dL (7-18); Calcium 8.8 mg/dL (8.5-10.1); Carbon Dioxide 31 mmol/L (21-32); Chloride 97 mmol/L (98-108); Estimated CRCL calculation 31 ml/min; Estimated Glomerular Filt Rate 29; Glucose 119 mg/dL (70-99); Magnesium 1.3 mg/dL (1.8-2.4); Osmolality Calculated 298 mOsm/kg (285-295); Potassium 3.4 mmol/L (3.5-5.1); Sodium 136 mmol/L (136-145); Total Protein 6.2 g/dL (6.4-8.2)
[2020-01-30 06:11] LABS: Ammonia < 10 umol/L (11-32)
[2020-01-30] MEDS: ALBUTEROL SULFATE (*SP) INHALER 2 PUFF INHALATION ×4 (06:16→21:18)
--- NOTE | 2020-01-30 06:20 | PC.NURSE ---
Sleeping, awakens easily for albuterol inhalation. Up most of night watching T.V.
[2020-01-30 08:00] VITALS: BP 104/72; PULSE 86; RESP 18; TEMP 36.8; O2SAT 97
[2020-01-30] MEDS: LACTULOSE 20 GM/30 ML UDC 30 GM PO (09:31)
[2020-01-30] MEDS: MAGNESIUM OXIDE 400 MG TABLET PO (09:33)
[2020-01-30] MEDS: POLYSACCHARIDE IRON COMPLEX 150 MG CAPSULE PO ×2 (09:34→16:20)
[2020-01-30] MEDS: FOLIC ACID 1 MG TABLET PO (09:35)
[2020-01-30] MEDS: FUROSEMIDE INJ 40 MG/4 ML VIAL IV PUSH ×2 (09:36→16:20)
[2020-01-30] MEDS: THIAMINE HCL 100 MG TABLET 50 MG PO (09:36)
[2020-01-30] MEDS: POTASSIUM CHLORIDE 20 MEQ TABLET 40 MEQ PO ×2 (12:29→16:20)
[2020-01-30] MEDS: TRAMADOL HCL 50 MG TABLET PO (12:30)
--- NOTE | 2020-01-30 15:12 | P.PNCROSS_ITS ---
Event Note Event Note Event Note: Received the following information from the [facility] division in [facility] regarding the patient Armen Cunningham: Shows that on September 11, 2019, his sodium level was 139, potassium level 3.9, chloride level 99, BUN 4, creatinine 1.00, calcium 8.7, protein 6.8, albumin 2.9, GFR greater than 60, alkaline phosphatase 203, ALT 23, AST 64, total bili 1.8, conjugated bilirubin 1.3, CO2 29, glucose 123. The paperwork also shows that prior to that, on May 18, 2019; his sodium level was 134, potassium 3.5, chloride 95, BUN 7, creatinine 0.90, calcium 8.2, protein 6.6, albumin 2.9, GFR greater than 60, alkaline phosphatase 383, ALT 55, AST 200, total bili 2.6, CO2 26, glucose 218. There is a Gastroenterology outpatient follow-up NOTE dated September 11, 2019 written by Carito Agrawal. Stating that he has chronic alcoholic cirrhosis, a lcoholic cardiomyopathy, benign pancreatic cyst with a history of a resection of a duodenal tubular adenoma in 2013 at [facility]. He has a follow-up visit for cirrhosis. He had an EGD on February 02, 2019 that showed small esophageal varices, portal hypertensive gastropathy, scar tissue of previous duodenal polypectomy site. His MELD score in August of 2018 was 16. At the time of this visit he was taking spironolactone 100 mg daily and Lasix 40 mg daily. He was having swelling in his ankles but was using salt in his diet. On April 2018 his meld score was 17 and all of his enzymes liver enzymes had increased. He was drinking mixed drinks 2-3, 4-5 shots of fireball, and having Tequila shots that he had gotten tired of beer. They discussed group counseling and AA meetings but the patient stated he was supposed to those, and discussed 101 counseling To treat his alcohol abuse. he also uses marijuana infrequently. He has 3 brothers who still drink. The plan was to avoid benzodiazepines and opioids, to improve his protein intake per day, to update his meld score, and get an EGD and a colonoscopy scheduled. Per an office note that was even older dated March 04, 2019, his August 2018 ultrasound of the abdomen showed hepatic cirrhosis without evidence of a hepatic mass. He had evidence back in March of 2017 of abnormalities in the pancreatic head, possible common duct stones with a cystic lesion that could represent focal dilatation of the common bile duct or a cystic tumor. He had received his hepatitis-A and B vaccinations already. <Myra Carr, MANAGER BRAND - Last Filed: 01/30/20 15:28>
[2020-01-30 16:00] VITALS: BP 110/70; PULSE 96; RESP 18; TEMP 36.8; O2SAT 98
[2020-01-30] MEDS: LACTULOSE 20 GM/30 ML UDC 10 GM PO (16:21)
[2020-01-31] VITALS: BP 96/62; PULSE 93; RESP 20; TEMP 36.2; O2SAT 98
[2020-01-31 04:25] VITALS: BP 120/69; PULSE 91
[2020-01-31] MEDS: ALBUTEROL SULFATE (*SP) INHALER 2 PUFF INHALATION ×4 (06:06→20:18)
[2020-01-31 08:00] VITALS: BP 100/54; PULSE 70; RESP 16; TEMP 36.1; O2SAT 98
[2020-01-31] MEDS: LIDOCAINE 5% PATCH 2 PATCH TRANSDERM (09:26)
[2020-01-31] MEDS: FUROSEMIDE INJ 40 MG/4 ML VIAL IV PUSH ×2 (09:27→16:47)
[2020-01-31] MEDS: LACTULOSE 20 GM/30 ML UDC 10 GM PO ×2 (09:27→16:48)
[2020-01-31] MEDS: POTASSIUM CHLORIDE 20 MEQ TABLET 40 MEQ PO ×2 (09:28→16:48)
[2020-01-31] MEDS: MAGNESIUM OXIDE 400 MG TABLET PO (09:28)
[2020-01-31] MEDS: FOLIC ACID 1 MG TABLET PO (09:28)
[2020-01-31] MEDS: POLYSACCHARIDE IRON COMPLEX 150 MG CAPSULE PO ×2 (09:29→16:48)
[2020-01-31] MEDS: THIAMINE HCL 100 MG TABLET 50 MG PO (09:29)
[2020-01-31] MEDS: TRAMADOL HCL 50 MG TABLET PO (12:11)
[2020-01-31 16:00] VITALS: BP 98/54; PULSE 74; RESP 18; TEMP 36.6; O2SAT 98
[2020-02-01] VITALS: BP 116/64; PULSE 86; RESP 18; TEMP 36.5; O2SAT 97
[2020-02-01] MEDS: ALBUTEROL SULFATE (*SP) INHALER 2 PUFF INHALATION ×4 (05:45→20:45)
[2020-02-01] MEDS: TRAMADOL HCL 50 MG TABLET PO (05:45)
[2020-02-01 07:35] VITALS: BP 116/64; PULSE 87; RESP 18; TEMP 36.2; O2SAT 98
[2020-02-01] MEDS: FOLIC ACID 1 MG TABLET PO (09:10)
[2020-02-01] MEDS: POLYSACCHARIDE IRON COMPLEX 150 MG CAPSULE PO ×2 (09:10→18:18)
[2020-02-01] MEDS: POTASSIUM CHLORIDE 20 MEQ TABLET 40 MEQ PO (09:10)
[2020-02-01] MEDS: LACTULOSE 20 GM/30 ML UDC 10 GM PO (09:11)
[2020-02-01] MEDS: THIAMINE HCL 100 MG TABLET 50 MG PO (09:11)
[2020-02-01] MEDS: LIDOCAINE 5% PATCH 2 PATCH TRANSDERM (09:11)
[2020-02-01] MEDS: FUROSEMIDE INJ 40 MG/4 ML VIAL IV PUSH (09:11)
[2020-02-01] MEDS: MAGNESIUM OXIDE 400 MG TABLET PO ×3 (09:11→18:18)
[2020-02-01 10:47] LABS: Hematocrit 29.5 % (37.0-46.0); Hemoglobin 8.9 g/dL (12.4-15.3); Mean Corpuscular HGB Conc 30.2 g/dL (32.0-36.0); Mean Corpuscular Volume 96.1 fL (78.0-102.0); Mean Platelet Volume 12.7 fl (8.7-11.0); Platelet Count Result 214 K/mm3 (150-420); Red Blood Count 3.07 M/mm3 (4.70-6.10); Red Cell Distribution Width 15.8 % (11.6-14.4); White Blood Count 8.2 K/mm3 (4.8-10.8)
[2020-02-01 11:12] LABS: Alanine Aminotransferase 50 U/L (16-63); Albumin Level 2.5 g/dL (3.4-5.0); Alkaline Phosphatase 257 U/L (46-116); Anion Gap 14.7 mmol/L (7-16); Aspartate Amino Transferase 75 U/L (15-37); Bilirubin,Total 1.5 mg/dL (0.00-1.00); Blood Urea Nitrogen 49 mg/dL (7-18); Calcium 8.6 mg/dL (8.5-10.1); Carbon Dioxide 29 mmol/L (21-32); Chloride 98 mmol/L (98-108); Estimated CRCL calculation 33 ml/min; Estimated Glomerular Filt Rate 31; Glucose 130 mg/dL (70-99); Osmolality Calculated 299 mOsm/kg (285-295); Potassium 4.7 mmol/L (3.5-5.1); Sodium 137 mmol/L (136-145); Total Protein 6.3 g/dL (6.4-8.2)
[2020-02-01 12:14] LABS: Magnesium 1.4 mg/dL (1.8-2.4)
[2020-02-01] MEDS: NYSTATIN 100,000 UNITS/ML SUSP 5 ML ORAL.SUSP PO ×3 (13:50→20:45)
[2020-02-01] MEDS: SPIRONOLACTONE 25 MG TABLET 12.5 MG PO (13:53)
[2020-02-01 15:50] VITALS: BP 143/69; PULSE 95; RESP 18; TEMP 36.7; O2SAT 98
[2020-02-01] MEDS: FUROSEMIDE 40 MG TABLET PO (18:18)
--- NOTE | 2020-02-01 19:35 | PC.NURSE ---
Patient resting quietly in bed, no distress noted. Call light at side.
--- NOTE | 2020-02-01 22:30 | PC.NURSE ---
Patient sleeping quietly in bed. No signs of distress noted. Call light and belongings at side.
[2020-02-02] VITALS: BP 104/62; PULSE 88; RESP 20; TEMP 36.2; O2SAT 99
[2020-02-02] MEDS: ALBUTEROL SULFATE (*SP) INHALER 2 PUFF INHALATION ×2 (06:07→10:21)
[2020-02-02 08:00] VITALS: BP 100/68; PULSE 66; RESP 16; TEMP 36.7; O2SAT 100
[2020-02-02] MEDS: LACTULOSE 20 GM/30 ML UDC 10 GM PO ×2 (08:22→16:24)
[2020-02-02] MEDS: SPIRONOLACTONE 25 MG TABLET 12.5 MG PO (08:23)
[2020-02-02] MEDS: POLYSACCHARIDE IRON COMPLEX 150 MG CAPSULE PO ×2 (08:23→16:23)
[2020-02-02] MEDS: FOLIC ACID 1 MG TABLET PO (08:23)
[2020-02-02] MEDS: NYSTATIN 100,000 UNITS/ML SUSP 5 ML ORAL.SUSP PO ×4 (08:23→20:43)
[2020-02-02] MEDS: FUROSEMIDE 40 MG TABLET PO ×2 (08:23→16:23)
[2020-02-02] MEDS: THIAMINE HCL 100 MG TABLET 50 MG PO (08:26)
[2020-02-02] MEDS: POTASSIUM CHLORIDE 20 MEQ TABLET 40 MEQ PO (08:26)
[2020-02-02] MEDS: MAGNESIUM OXIDE 400 MG TABLET PO ×3 (08:26→16:23)
[2020-02-02] MEDS: LIDOCAINE 5% PATCH 2 PATCH TRANSDERM (08:29)
--- NOTE | 2020-02-02 10:00 | PC.NURSE ---
PT WORKING WITH THERAPY AT THIS TIME.
--- NOTE | 2020-02-02 10:38 | PC.NURSE ---
PT WORKING WITH THERAPY AT THIS TIME.
--- NOTE | 2020-02-02 11:24 | PC.NURSE ---
CARE CONFERENCE MEETING AT THIS TIME WITH PATIENT AND PT BROTHER
--- NOTE | 2020-02-02 14:22 | PC.NURSE ---
PT RESTING IN BED, EYES CLOSED, RESP EVEN/UNLABORED, NO DISTRESS, CALL LIGHT IN REACH.
--- NOTE | 2020-02-02 15:05 | PM.EVENT ---
Event Note Event Note Event Note: Review patient's vitals and labs
[2020-02-02 16:00] VITALS: BP 102/60; PULSE 80; RESP 16; TEMP 36.7; O2SAT 99
[2020-02-02 23:48] VITALS: BP 113/61; PULSE 83; RESP 18; TEMP 36.9; O2SAT 99
--- NOTE | 2020-02-03 01:30 | PC.NURSE ---
pt resting in bed watching tv, reports unable to sleep, belongings and call light within reach
--- NOTE | 2020-02-03 06:18 | PC.NURSE ---
pt stood on the side of the bed to be weighed with walker and sba, and then transferred to bsc, then return to bed, pt tolerated well.
[2020-02-03 07:17] VITALS: BP 110/66; PULSE 80; RESP 16; TEMP 36.4; O2SAT 99
[2020-02-03] MEDS: LACTULOSE 20 GM/30 ML UDC 10 GM PO ×2 (08:18→17:01)
[2020-02-03] MEDS: FOLIC ACID 1 MG TABLET PO (08:19)
[2020-02-03] MEDS: POTASSIUM CHLORIDE 20 MEQ TABLET 40 MEQ PO (08:19)
[2020-02-03] MEDS: POLYSACCHARIDE IRON COMPLEX 150 MG CAPSULE PO ×2 (08:19→17:00)
[2020-02-03] MEDS: SPIRONOLACTONE 25 MG TABLET 12.5 MG PO (08:20)
[2020-02-03] MEDS: MAGNESIUM OXIDE 400 MG TABLET PO ×3 (08:20→17:03)
[2020-02-03] MEDS: FUROSEMIDE 40 MG TABLET PO ×2 (08:20→17:00)
[2020-02-03] MEDS: THIAMINE HCL 100 MG TABLET 50 MG PO (08:21)
[2020-02-03] MEDS: LIDOCAINE 5% PATCH 2 PATCH TRANSDERM (08:25)
[2020-02-03] MEDS: NYSTATIN 100,000 UNITS/ML SUSP 5 ML ORAL.SUSP PO ×4 (09:33→20:56)
--- NOTE | 2020-02-03 12:20 | P.PNIM_ITS ---
Progress Note: A&P Assessment and Plan (1) History of fall: Code(s): Z91.81 - History of falling Status: Acute Assessment and Plan: * Continue PT/OT and other therapeutic activities in efforts to further strengt hen and improve his impaired mobility. * CT-unremarkable * Ammonia WNL * COVID negative. * Continue use of back brace. (2) Rhabdomyolysis: Qualifiers: Rhabdomyolysis type: non-traumatic Qualified Code(s): M62.82 - Rhabdomyolysis Code(s): M62.82 - Rhabdomyolysis Status: Acute Assessment and Plan: * resolved * Continue to monitor monitor total creatinine kinase levels if mental status changes, but currently within normal limits. * liver function tests improving (3) Acute renal failure (ARF): Qualifiers: Acute renal failure type: unspecified Qualified Code(s): N17.9 - Acute kidney failure, unspecified Code(s): N17.9 - Acute kidney failure, unspecified Status: Acute Assessment and Plan: * continue to monitor his renal function through lab work, I and Os, daily weights and urine analysis as needed * renal function improving creatinine still slightly elevated at 2.10 * avoid nephrotoxic agents * will repeat BMP in 48 to 78 hours (4) UTI (urinary tract infection): Qualifiers: Hematuria presence: without hematuria Urinary tract infection type: acute cystitis Qualified Code(s): N30.00 - Acute cystitis without hematuria Code(s): N39.0 - Urinary tract infection, site not specified Status: Acute Assessment and Plan: * continue to monitor his renal function through lab work, I and Os, daily weights and urine analysis as needed * antibiotic treatment complete (5) Hypomagnesemia: Code(s): E83.42 - Hypomagnesemia Status: Acute Assessment and Plan: * possibly secondary to ETOH abuse or rhabdo * magnesium level was 1.6 t * patient receiving supplementary magnesium oxide 400 mg b.i.d. orally (6) Cirrhosis: Qualifiers: Hepatic cirrhosis type: other cirrhosis Qualified Code(s): K74.69 - Other cirrhosis of liver Code(s): K74.60 - Unspecified cirrhosis of liver Status: Acute Assessment and Plan: * continue to monitor his renal function through lab work, I and Os, daily weights and urine analysis as needed * patient has a history of cirrhosis * liver function tests improving * will continue to monitor * avoid hepatotoxic agents (7) Hypotension: Code(s): I95.9 - Hypotension, unspecified Status: Acute Assessment and Plan: * blood patient is stable * will restart carvedilol * vital signs is ordered * will possibly restart spiroloactone at home dose. Subjective Date/time seen: 02/03/20 12:20 patient's speech has much improved since last visit with him. he only complains that he has flatulence and was unable to sleep well . he noted that physical therapy/occupational therapy is going well. will be re-evaluated by Physical therapy/occupational therapy in 1 week to plan for discharge. Patient denies SOB, CP, palpitation, extremity numbness, lightheadness, dizziness, constipation, diarrhea, chills or fever. Review of Systems Review of Systems: All systems reviewed & are unremarkable except as noted in HPI and below Constitutional: Constitutional: Reports as per HPI, Denies chills, Denies difficulty sleeping, Denies excessive sweating, Reports fatigue, Denies
--- NOTE | 2020-02-03 12:20 | PM.IMPN ---
Progress Note: A&P Assessment and Plan (1) History of fall: Code(s): Z91.81 - History of falling Status: Acute Assessment and Plan: Continue PT/OT and other therapeutic activities in efforts to further strengthen and improve his impaired mobility. CT-unremarkable Ammonia WNL COVID negative. Continue use of back brace. (2) Rhabdomyolysis: Qualifiers: Rhabdomyolysis type: non-traumatic Qualified Code(s): M62.82 - Rhabdomyolysis Code(s): M62.82 - Rhabdomyolysis Status: Acute Assessment and Plan: resolved Continue to monitor monitor total creatinine kinase levels if mental status changes, but currently within normal limits. liver function tests improving (3) Acute renal failure (ARF): Qualifiers: Acute renal failure type: unspecified Qualified Code(s): N17.9 - Acute kidney failure, unspecified Code(s): N17.9 - Acute kidney failure, unspecified Status: Acute Assessment and Plan: continue to monitor his renal function through lab work, I and Os, daily weights and urine analysis as needed renal function improving creatinine still slightly elevated at 2.10 avoid nephrotoxic agents will repeat BMP in 48 to 78 hours (4) UTI (urinary tract infection): Qualifiers: Hematuria presence: without hematuria Urinary tract infection type: acute cystitis Qualified Code(s): N30.00 - Acute cystitis without hematuria Code(s): N39.0 - Urinary tract infection, site not specified Status: Acute Assessment and Plan: continue to monitor his renal function through lab work, I and Os, daily weights and urine analysis as needed antibiotic treatment complete (5) Hypomagnesemia: Code(s): E83.42 - Hypomagnesemia Status: Acute Assessment and Plan: possibly secondary to ETOH abuse or rhabdo magnesium level was 1.6 t patient receiving supplementary magnesium oxide 400 mg b.i.d. orally (6) Cirrhosis: Qualifiers: Hepatic cirrhosis type: other cirrhosis Qualified Code(s): K74.69 - Other cirrhosis of liver Code(s): K74.60 - Unspecified cirrhosis of liver Status: Acute Assessment and Plan: continue to monitor his renal function through lab work, I and Os, daily weights and urine analysis as needed patient has a history of cirrhosis liver function tests improving will continue to monitor avoid hepatotoxic agents (7) Hypotension: Code(s): I95.9 - Hypotension, unspecified Status: Acute Assessment and Plan: blood patient is stable will restart carvedilol vital signs is ordered will possibly restart spiroloactone at home dose. Subjective Date/time seen: 02/03/20 12:20 patient's speech has much improved since last visit with him. he only complains that he has flatulence and was unable to sleep well . he noted that physical therapy/occupational therapy is going well. will be re-evaluated by Physical therapy/occupational therapy in 1 week to plan for discharge. Patient denies SOB, CP, palpitation, extremity numbness, lightheadness, dizziness, constipation, diarrhea, chills or fever. Review of Systems Review of Systems: All systems reviewed & are unremarkable except as noted in HPI and below Constitutional: Constitutional: Reports as per HPI, Denies chills, Denies difficulty sleeping, Denies excessive sweating, Reports fatigue, Denies headache(s), Denies increased appetite, Reports lethargy, Denies snoring, Reports weakness and Denies weight gain Eyes: Eyes: Reports as per HPI, Denies blurry vision, Denies exophthalmos, Denies diplopia, Denies floaters, Denies loss of peripheral vision and Denies photophobia ENT: Reports as per HPI, Reports Normal hearing present, Denies dysphagia, Denies facial pain, Denies headache(s), Denies epistaxis, Denies nasal congestion, Denies nasal discharge, Reports neck pa
[2020-02-03] MEDS: carvediloL 3.125 MG TABLET PO ×2 (12:52→20:56)
[2020-02-03] MEDS: SIMETHICONE 80 MG TAB.CHEW PO ×3 (12:52→20:56)
[2020-02-03 16:00] VITALS: BP 98/62; PULSE 86; RESP 16; TEMP 36.6; O2SAT 98
--- NOTE | 2020-02-03 23:19 | PM.EVENT ---
Event Note Event Note Event Note: Patient complains only of back pain. Patient is alert and oriented x2. Regular rate and rhythm. pulses are full and symmetric in the extremities are warm dry and pink. Lungs are clear to auscultation bilaterally. Abdomen is mildly distended, soft and nontender. 2+ pitting edema in the lower extremities. Patient is currently being treated for balance issues by PT. Acute renal failure is steadily improving. Now on oral antibiotics for gram-negative sepsis as he is continuing to have improved. I have examined the patient and reviewed the chart. I discussed patient's care with Elena Duvall APN and agree with her assessment plan.
[2020-02-04] VITALS: BP 117/66; PULSE 97; RESP 18; TEMP 36.6; O2SAT 99
[2020-02-04 08:00] VITALS: BP 93/65; PULSE 94; RESP 16; TEMP 37.3; O2SAT 96
[2020-02-04] MEDS: LACTULOSE 20 GM/30 ML UDC 10 GM PO ×2 (09:25→17:58)
[2020-02-04] MEDS: NYSTATIN 100,000 UNITS/ML SUSP 5 ML ORAL.SUSP PO ×4 (09:27→20:05)
[2020-02-04] MEDS: LIDOCAINE 5% PATCH 2 PATCH TRANSDERM (09:27)
[2020-02-04] MEDS: POTASSIUM CHLORIDE 20 MEQ TABLET 40 MEQ PO (09:28)
[2020-02-04] MEDS: SPIRONOLACTONE 25 MG TABLET 12.5 MG PO (09:30)
[2020-02-04] MEDS: FUROSEMIDE 40 MG TABLET PO ×2 (09:30→17:58)
[2020-02-04] MEDS: MAGNESIUM OXIDE 400 MG TABLET PO ×3 (09:30→18:00)
[2020-02-04] MEDS: SIMETHICONE 80 MG TAB.CHEW PO ×4 (09:30→20:05)
[2020-02-04 09:31] VITALS: PULSE 94
[2020-02-04] MEDS: carvediloL 3.125 MG TABLET PO ×2 (09:31→20:05)
[2020-02-04] MEDS: POLYSACCHARIDE IRON COMPLEX 150 MG CAPSULE PO ×2 (09:31→17:58)
[2020-02-04] MEDS: FOLIC ACID 1 MG TABLET PO (09:32)
[2020-02-04] MEDS: THIAMINE HCL 100 MG TABLET 50 MG PO (09:37)
[2020-02-04 15:52] VITALS: BP 110/56; PULSE 85; RESP 18; TEMP 36.7; O2SAT 100
[2020-02-04 20:05] VITALS: PULSE 74
[2020-02-05] VITALS: BP 97/58; PULSE 75; RESP 18; TEMP 37.1; O2SAT 96
[2020-02-05 05:39] LABS: Hematocrit 24.4 % (37.0-46.0); Hemoglobin 7.8 g/dL (12.4-15.3); Mean Corpuscular Hemoglobin 28.5 pg (27.0-31.0); Mean Corpuscular Volume 89.1 fL (78.0-102.0); Mean Platelet Volume 12.1 fl (8.7-11.0); Platelet Count Result 151 K/mm3 (150-420); Red Blood Count 2.74 M/mm3 (4.70-6.10); Red Cell Distribution Width 15.2 % (11.6-14.4); White Blood Count 6.8 K/mm3 (4.8-10.8)
[2020-02-05 06:06] LABS: Alanine Aminotransferase 54 U/L (16-63); Albumin Level 2.2 g/dL (3.4-5.0); Alkaline Phosphatase 221 U/L (46-116); Aspartate Amino Transferase 120 U/L (15-37); Blood Urea Nitrogen 36 mg/dL (7-18); Calcium 8.2 mg/dL (8.5-10.1); Carbon Dioxide 26 mmol/L (21-32); Chloride 103 mmol/L (98-108); Estimated CRCL calculation 38 ml/min; Estimated Glomerular Filt Rate 37; Glucose 94 mg/dL (70-99); Magnesium 1.3 mg/dL (1.8-2.4); Osmolality Calculated 296 mOsm/kg (285-295); Sodium 139 mmol/L (136-145); Total Protein 5.5 g/dL (6.4-8.2)
[2020-02-05 08:00] VITALS: BP 94/62; PULSE 82; RESP 20; TEMP 36.4; O2SAT 100
[2020-02-05] MEDS: LIDOCAINE 5% PATCH 2 PATCH TRANSDERM (10:12)
[2020-02-05] MEDS: POTASSIUM CHLORIDE 20 MEQ TABLET 40 MEQ PO (10:13)
[2020-02-05] MEDS: NYSTATIN 100,000 UNITS/ML SUSP 5 ML ORAL.SUSP PO ×4 (10:13→20:56)
[2020-02-05 10:14] VITALS: PULSE 82
[2020-02-05] MEDS: carvediloL 3.125 MG TABLET PO ×2 (10:14→20:55)
[2020-02-05] MEDS: SIMETHICONE 80 MG TAB.CHEW PO ×4 (10:14→20:55)
[2020-02-05] MEDS: SPIRONOLACTONE 25 MG TABLET 12.5 MG PO (10:14)
[2020-02-05] MEDS: POLYSACCHARIDE IRON COMPLEX 150 MG CAPSULE PO ×2 (10:14→17:30)
[2020-02-05] MEDS: FOLIC ACID 1 MG TABLET PO (10:15)
[2020-02-05] MEDS: FUROSEMIDE 40 MG TABLET PO ×2 (10:15→17:30)
[2020-02-05] MEDS: THIAMINE HCL 100 MG TABLET 50 MG PO (10:15)
[2020-02-05] MEDS: MAGNESIUM OXIDE 400 MG TABLET PO ×3 (10:15→17:30)
[2020-02-05 16:00] VITALS: BP 98/58; PULSE 76; RESP 18; TEMP 36.6; O2SAT 99
[2020-02-05] MEDS: LACTULOSE 20 GM/30 ML UDC 10 GM PO (17:29)
[2020-02-05 20:51] VITALS: BP 107/65; PULSE 83; RESP 18; TEMP 36.9; O2SAT 98
[2020-02-05] MEDS: TRAMADOL HCL 50 MG TABLET PO (20:55)
[2020-02-06] VITALS: BP 97/61; PULSE 76; RESP 18; TEMP 36.8; O2SAT 98
[2020-02-06 07:22] VITALS: BP 114/60; PULSE 72; RESP 18; TEMP 36.8; O2SAT 98
[2020-02-06] MEDS: LACTULOSE 20 GM/30 ML UDC 10 GM PO (08:59)
[2020-02-06] MEDS: MAGNESIUM OXIDE 400 MG TABLET PO ×3 (09:00→15:45)
[2020-02-06] MEDS: POLYSACCHARIDE IRON COMPLEX 150 MG CAPSULE PO ×2 (09:00→15:45)
[2020-02-06] MEDS: SPIRONOLACTONE 25 MG TABLET 12.5 MG PO (09:00)
[2020-02-06] MEDS: TRAMADOL HCL 50 MG TABLET PO ×2 (09:00→20:53)
[2020-02-06] MEDS: FUROSEMIDE 40 MG TABLET PO ×2 (09:00→15:45)
[2020-02-06] MEDS: NYSTATIN 100,000 UNITS/ML SUSP 5 ML ORAL.SUSP PO ×4 (09:00→20:53)
[2020-02-06] MEDS: SIMETHICONE 80 MG TAB.CHEW PO ×4 (09:00→20:53)
[2020-02-06] MEDS: FOLIC ACID 1 MG TABLET PO (09:00)
[2020-02-06 09:01] VITALS: PULSE 72
[2020-02-06] MEDS: LIDOCAINE 5% PATCH 2 PATCH TRANSDERM (09:01)
[2020-02-06] MEDS: POTASSIUM CHLORIDE 20 MEQ TABLET 40 MEQ PO (09:01)
[2020-02-06] MEDS: THIAMINE HCL 100 MG TABLET 50 MG PO (09:01)
[2020-02-06] MEDS: carvediloL 3.125 MG TABLET PO ×2 (09:01→20:52)
--- NOTE | 2020-02-06 11:15 | PC.NURSE ---
Patient sleeping quietly in bed. HOB elevated. No distress noted.
--- NOTE | 2020-02-06 14:25 | PC.NURSE ---
Patient resting in bed with hob elevated. Patient reports no needs at this time. Call light at side.
[2020-02-06 15:50] VITALS: BP 113/63; PULSE 77; RESP 18; TEMP 36.6; O2SAT 98
--- NOTE | 2020-02-06 18:28 | PC.NURSE ---
sleeping quietly in bed with hob elevated. call light and belongings at side.
[2020-02-06 20:52] VITALS: PULSE 62
[2020-02-07] VITALS: BP 96/56; PULSE 72; RESP 18; TEMP 36.2; O2SAT 98
[2020-02-07] MEDS: TRAMADOL HCL 50 MG TABLET PO (05:08)
[2020-02-07 06:36] LABS: Hematocrit 24.6 % (37.0-46.0); Mean Corpuscular HGB Conc 32.5 g/dL (32.0-36.0); Mean Corpuscular Volume 89.1 fL (78.0-102.0); Mean Platelet Volume 12.4 fl (8.7-11.0); Platelet Count Result 143 K/mm3 (150-420); Red Blood Count 2.76 M/mm3 (4.70-6.10); Red Cell Distribution Width 14.8 % (11.6-14.4); White Blood Count 6.4 K/mm3 (4.8-10.8)
[2020-02-07 06:44] LABS: Alanine Aminotransferase 41 U/L (16-63); Albumin Level 2.2 g/dL (3.4-5.0); Alkaline Phosphatase 200 U/L (46-116); Ammonia 32 umol/L (11-32); Aspartate Amino Transferase 83 U/L (15-37); Bilirubin,Total 0.8 mg/dL (0.00-1.00); Blood Urea Nitrogen 32 mg/dL (7-18); Calcium 8.2 mg/dL (8.5-10.1); Carbon Dioxide 25 mmol/L (21-32); Chloride 99 mmol/L (98-108); Estimated CRCL calculation 41 ml/min; Estimated Glomerular Filt Rate 40; Glucose 88 mg/dL (70-99); Magnesium 1.4 mg/dL (1.8-2.4); Osmolality Calculated 281 mOsm/kg (285-295); Sodium 133 mmol/L (136-145)
[2020-02-07 08:00] VITALS: BP 96/59; PULSE 73; RESP 18; TEMP 37.1; O2SAT 94
[2020-02-07] MEDS: LACTULOSE 20 GM/30 ML UDC 10 GM PO (08:35)
[2020-02-07] MEDS: LIDOCAINE 5% PATCH 2 PATCH TRANSDERM (08:35)
[2020-02-07] MEDS: MAGNESIUM OXIDE 400 MG TABLET PO ×3 (08:36→16:49)
[2020-02-07] MEDS: SIMETHICONE 80 MG TAB.CHEW PO ×4 (08:36→21:14)
[2020-02-07] MEDS: FOLIC ACID 1 MG TABLET PO (08:36)
[2020-02-07] MEDS: POTASSIUM CHLORIDE 20 MEQ TABLET 40 MEQ PO (08:36)
[2020-02-07] MEDS: POLYSACCHARIDE IRON COMPLEX 150 MG CAPSULE PO ×2 (08:36→16:49)
[2020-02-07] MEDS: FUROSEMIDE 40 MG TABLET PO ×2 (08:36→16:49)
[2020-02-07] MEDS: SPIRONOLACTONE 25 MG TABLET 12.5 MG PO (08:36)
[2020-02-07 08:37] VITALS: PULSE 85
[2020-02-07] MEDS: carvediloL 3.125 MG TABLET PO ×2 (08:37→21:14)
[2020-02-07] MEDS: NYSTATIN 100,000 UNITS/ML SUSP 5 ML ORAL.SUSP PO ×4 (08:37→21:14)
[2020-02-07] MEDS: THIAMINE HCL 100 MG TABLET 50 MG PO (08:37)
--- NOTE | 2020-02-07 11:00 | PC.NURSE ---
Patient sleeping quietly in bed with hob elevated. shows no signs of distress. Call light and belongings within reach.
[2020-02-07 15:50] VITALS: BP 99/62; PULSE 74; RESP 18; TEMP 37.1; O2SAT 97
[2020-02-07 21:14] VITALS: PULSE 72
[2020-02-08 00:10] VITALS: BP 98/52; PULSE 70; RESP 18; TEMP 36.6; O2SAT 98
--- NOTE | 2020-02-08 02:05 | PC.NURSE ---
Pt sleeping, respirations even and regular, no evidence of distress noted at this time
[2020-02-08 06:37] LABS: Magnesium 1.5 mg/dL (1.8-2.4)
[2020-02-08 08:00] VITALS: BP 97/67; PULSE 68; RESP 18; TEMP 36.4; O2SAT 98
[2020-02-08] MEDS: LIDOCAINE 5% PATCH 2 PATCH TRANSDERM (08:36)
[2020-02-08] MEDS: FUROSEMIDE 40 MG TABLET PO ×2 (08:37→16:06)
[2020-02-08] MEDS: SPIRONOLACTONE 25 MG TABLET 12.5 MG PO (08:37)
[2020-02-08] MEDS: LACTULOSE 20 GM/30 ML UDC 10 GM PO ×2 (08:37→16:05)
[2020-02-08] MEDS: NYSTATIN 100,000 UNITS/ML SUSP 5 ML ORAL.SUSP PO ×4 (08:37→20:37)
[2020-02-08] MEDS: POLYSACCHARIDE IRON COMPLEX 150 MG CAPSULE PO ×2 (08:37→16:06)
[2020-02-08 08:38] VITALS: PULSE 68
[2020-02-08] MEDS: carvediloL 3.125 MG TABLET PO ×2 (08:38→20:38)
[2020-02-08] MEDS: MAGNESIUM OXIDE 400 MG TABLET PO ×3 (08:38→16:06)
[2020-02-08] MEDS: POTASSIUM CHLORIDE 20 MEQ TABLET 40 MEQ PO (08:38)
[2020-02-08] MEDS: FOLIC ACID 1 MG TABLET PO (08:39)
[2020-02-08] MEDS: SIMETHICONE 80 MG TAB.CHEW PO ×4 (08:39→20:37)
[2020-02-08] MEDS: THIAMINE HCL 100 MG TABLET 50 MG PO (08:39)
[2020-02-08 16:00] VITALS: BP 104/53; PULSE 97; RESP 18; TEMP 36.6; O2SAT 96
[2020-02-08 20:38] VITALS: PULSE 70
[2020-02-09] VITALS: BP 158/56; PULSE 65; RESP 16; TEMP 36.6; O2SAT 93
[2020-02-09] MEDS: TRAMADOL HCL 50 MG TABLET PO (03:08)
--- NOTE | 2020-02-09 04:24 | PC.NURSE ---
Sleeping, resp even. No signs of discomfort noted.
[2020-02-09 08:00] VITALS: BP 114/87; PULSE 87; RESP 20; TEMP 36.2; O2SAT 97
[2020-02-09] MEDS: LIDOCAINE 5% PATCH 2 PATCH TRANSDERM (09:59)
[2020-02-09] MEDS: NYSTATIN 100,000 UNITS/ML SUSP 5 ML ORAL.SUSP PO ×2 (09:59→13:41)
[2020-02-09] MEDS: LACTULOSE 20 GM/30 ML UDC 10 GM PO (09:59)
[2020-02-09] MEDS: POTASSIUM CHLORIDE 20 MEQ TABLET 40 MEQ PO (10:00)
[2020-02-09 10:01] VITALS: PULSE 81
[2020-02-09] MEDS: POLYSACCHARIDE IRON COMPLEX 150 MG CAPSULE PO (10:01)
[2020-02-09] MEDS: SPIRONOLACTONE 25 MG TABLET 12.5 MG PO (10:01)
[2020-02-09] MEDS: carvediloL 3.125 MG TABLET PO (10:01)
[2020-02-09] MEDS: FOLIC ACID 1 MG TABLET PO (10:02)
[2020-02-09] MEDS: SIMETHICONE 80 MG TAB.CHEW PO ×2 (10:02→13:40)
[2020-02-09] MEDS: FUROSEMIDE 40 MG TABLET PO (10:02)
[2020-02-09] MEDS: MAGNESIUM OXIDE 400 MG TABLET PO ×2 (10:02→13:40)
[2020-02-09] MEDS: THIAMINE HCL 100 MG TABLET 50 MG PO (10:03)
--- NOTE | 2020-02-09 14:12 | PCOTNOTE ---
Attempted to see patient for skilled OT session however patient refuses therapy this afternoon as he is leaving and transferring to another facility and does not want therapy to wear him out before leaving. MS Patient is discharged from skilled OT services, see last note for skills and abilities.
--- NOTE | 2020-02-09 15:07 | PM.DS ---
DS: Diagnosis Admitting Diagnosis Admitting Diagnosis: History of falling <Myra Carr NP - Last Filed: 02/09/20 19:56> Discharge Diagnosis (1) History of fall: Code(s): Z91.81 - History of falling <Myra Carr NP - Last Filed: 02/09/20 19:56> Status: Acute <Myra Carr NP - Last Filed: 02/09/20 19:56> Assessment and Plan: Continue PT/OT and other therapeutic activities in efforts to further strengthen and improve his impaired mobility. CT-unremarkable Ammonia WNL COVID negative. Continue use of back brace. <Myra Carr NP - Last Filed: 02/09/20 19:56> (2) Rhabdomyolysis: Qualifiers: Rhabdomyolysis type: non-traumatic Qualified Code(s): M62.82 - Rhabdomyolysis <Myra Carr NP - Last Filed: 02/09/20 19:56> Code(s): M62.82 - Rhabdomyolysis <Myra Carr NP - Last Filed: 02/09/20 19:56> Status: Acute <Myra Carr NP - Last Filed: 02/09/20 19:56> Assessment and Plan: resolved Continue to monitor monitor total creatinine kinase levels if mental status changes, but currently within normal limits. liver function tests improving <Myra Carr NP - Last Filed: 02/09/20 19:56> (3) Acute renal failure (ARF): Qualifiers: Acute renal failure type: unspecified Qualified Code(s): N17.9 - Acute kidney failure, unspecified <Myra Carr NP - Last Filed: 02/09/20 19:56> Code(s): N17.9 - Acute kidney failure, unspecified <Myra Carr NP - Last Filed: 02/09/20 19:56> Status: Acute <Myra Carr NP - Last Filed: 02/09/20 19:56> Assessment and Plan: continue to monitor his renal function through lab work, I and Os, daily weights and urine analysis as needed renal function improving creatinine still slightly elevated at 1.7 (baseline 1.0) avoid nephrotoxic agents will repeat BMP weekly after discharge to [facility] <Myra Carr NP - Last Filed: 02/09/20 19:56> (4) UTI (urinary tract infection): Qualifiers: Hematuria presence: without hematuria Urinary tract infection type: acute cystitis Qualified Code(s): N30.00 - Acute cystitis without hematuria <Myra Carr NP - Last Filed: 02/09/20 19:56> Code(s): N39.0 - Urinary tract infection, site not specified <Myra Carr NP - Last Filed: 02/09/20 19:56> Status: Acute <Myra Carr NP - Last Filed: 02/09/20 19:56> Assessment and Plan: continue to monitor his renal function through lab work, I and Os, daily weights and urine analysis as needed antibiotic treatment complete <Myra Carr NP - Last Filed: 02/09/20 19:56> (5) Hypomagnesemia: Code(s): E83.42 - Hypomagnesemia <Myra Carr NP - Last Filed: 02/09/20 19:56> Status: Acute <Myra Carr NP - Last Filed: 02/09/20 19:56> Assessment and Plan: possibly secondary to ETOH abuse or rhabdo magnesium level was 1.5-1.7 patient receiving supplementary magnesium oxide 400 mg T.i.d. orally <Myra Carr NP - Last Filed: 02/09/20 19:56> (6) Cirrhosis: Qualifiers: Hepatic cirrhosis type: other cirrhosis Qualified Code(s): K74.69 - Other cirrhosis of liver <Myra Carr NP - Last Filed: 02/09/20 19:56> Code(s): K74.60 - Unspecified cirrhosis of liver <Myra Carr NP - Last Filed: 02/09/20 19:56> Status: Acute <Myra Carr NP - Last Filed: 02/09/20 19:56> Assessment and Plan: continue to monitor his renal function through lab work, I and Os, daily weights and urine analysis as needed patient has a history of cirrhosis liver function tests improving will continue to monitor avoid hepatotoxic agents <Myra Carr NP - Last Filed: 02/09/20 19:56> (7) Hypotension: Code(s): I95.9 - Hypotension, unspeci
--- NOTE | 2020-02-10 01:46 | P.PNCROSS_ITS ---
Event Note Event Note Event Note: For this patient encounter, I reviewed the SERVICE LOSS CONTROL CONSULTANT or PA documentation, treatment plan, and medical decision making; and I had [id number] time with this patient.
--- NOTE | 2020-02-10 01:46 | PM.EVENT ---
Event Note Event Note Event Note: For this patient encounter, I reviewed the GIS PROGRAMMER or PA documentation, treatment plan, and medical decision making; and I had [id number] time with this patient.
== END 2020-02-09 16:10 | DRG 872 ==
PROVIDERS: Nurse Practitioner; Admitting Provider Emergency Medicine; Visit Provider Emergency Medicine
DX: A41.50 Gram-negative sepsis, unspecified (principal); N39.0 Urinary tract infection, site not specified; M62.82 Rhabdomyolysis; I85.10 Secondary esophageal varices without bleeding; N17.9 Acute kidney failure, unspecified; E83.42 Hypomagnesemia; F10.10 Alcohol abuse, uncomplicated; K70.30 Alcoholic cirrhosis of liver without ascites; K70.40 Alcoholic hepatic failure without coma
CPT/HCPCS: 36415; 80053; 82140; 83735; 83880; 85027; 85055; 97110; 97162; 97165; 97530; 97535; A9270; J1940; J1956; J2060

== ENCOUNTER 2020-04-01 11:19 | Outpatient (CLI) | payer MEDICARE, OTHER, SELFPAY ==
--- NOTE | ~2020-04-01 | XR_ITS ---
XR thoracolumbar DATE: 04/01/2020 11:47 INDICATION: 5 months postoperative from fusion of thoracolumbar spine TECHNIQUE: AP and lateral views of the thoracolumbar area COMPARISON: None FINDINGS: Diffuse osteopenia. There are bilateral spinal rods from T10-L2, with pedicle screws bilaterally at T10, T11, L1 and L2. There is a burst fracture with prominent loss of height and anterior wedging at T12. Grade 1 anterolisthesis at L4-5. IMPRESSION: Status post posterior spinal fusion at T10-L2 Chronic burst fracture deformity of T12 Grade 1 anterolisthesis at L4-5 Reviewed, dictated and finalized at location A.
== END 2020-04-01 11:20 | disposition home or self-care (01) ==
LOC: ANHIMG 11:26
PROVIDERS: Visit Provider Neurological Surgery
DX: M43.25 Fusion of spine, thoracolumbar region (principal); M43.16 Spondylolisthesis, lumbar region; S22.081A Stable burst fracture of T11-T12 vertebra, initial encounter for closed fracture
CPT/HCPCS: 72080

== ENCOUNTER 2020-11-11 17:26 | Inpatient (IN) | payer MEDICARE, OTHER, SELFPAY ==
[2020-11-11] VITALS (15 sets, daily range): BP systolic 76–139; BP diastolic 54–115; PULSE 109–121; RESP 20–29; O2SAT 98–100
--- NOTE | ~2020-11-11 | XR_ITS ---
EXAMINATION: XR chest 1V portable DATE: 11/11/2020 22:41 INDICATION: Shortness of breath. Expiratory wheezing. Chest pain. TECHNIQUE: frontal view of the chest was obtained. COMPARISON: Chest radiograph dated 01/23/[address] dated 11/11/2020 FINDINGS: There are opacities in the bilateral lower lung zones which on prior CT correspond to a very small ri ght pleural effusion and bibasilar atelectasis, right greater than left including significant round a telectasis in the medial right lower lobe. No pulmonary edema, pneumothorax or left-sided pleural eff usion. Cardiomegaly. Right reverse total shoulder arthroplasty. Advanced osteoporosis the left glenoh umeral joint with couple partially visualized screws at the humeral head. Multiple old bilateral rib fractures. Partially visualized vertical sadnra and pedicle screw fixation for posterior spinal fusion e xtending caudally from the lower thoracic spine. IMPRESSION: 1. Small right pleural effusion. 2. Atelectasis in the bilateral lower lung zones, right greater than left including round atelectasis in the right lower lobe. 3. Cardiomegaly. Reviewed, dictated and finalized at location A. SFORCE DEVELOPER IMPRESSION: 1. Small right pleural effusion. 2. Atelectasis in the bilateral lower lung zones, right greater than left inclu ding round atelectasis in the right lower lobe. 3. Cardiomegaly.
--- NOTE | ~2020-11-11 | US_ITS ---
EXAMINATION: US renal BI DATE: 11/12/2020 10:51 INDICATION: Elevated creatinine TECHNIQUE: Multiple ultrasound grayscale images of the kidneys were obtained. COMPARISON: None. FINDINGS: The right kidney measures 10.4 x 5.0 x 7.8 cm. The left kidney measures 9.9 x 5.1 x 6.2 cm. The kidne ys demonstrate normal echogenicity. There is no hydronephrosis in either kidney. No stones identifie d. The bladder is not definitively identified. Large amount of ascites seen in all 4 quadrants of the abdomen. This may be complex ascites is a few thin internal septations are seen within the anechoic free fluid. IMPRESSION: 1. Normal kidneys without hydronephrosis. 2. Large amount of complex ascites consistent with given history of spontaneous bacterial peritonitis Reviewed, dictated and finalized at location A. ITY INSPECTOR
--- NOTE | ~2020-11-11 | XR_ITS ---
XR chest 1V portable DATE: 11/12/2020 22:06 INDICATION: Shortness of breath TECHNIQUE: Portable AP chest on November 12, 2020 at 2206 hours COMPARISON: November 11, 2020 portable AP chest at 2233 hours FINDINGS: There is intraperitoneal free air with free air identified under the the right and to a les ser extent left leaves of the diaphragm. Ruptured hollow intra-abdominal viscus must be considered. Mild infiltrate or atelectasis at the lung bases. Heart size appears borderline. No pulmonary vascula r congestion or pneumothorax. There are numerous old healed bilateral rib fractures. Right glenohumeral joint replacement. Spinal r ods extending from the lower thoracic into the lumbar spinal region. IMPRESSION: Intraperitoneal free air; consider ruptured hollow abdominal viscus Mild infiltrate or atelectasis at the lung bases Dr. Estrada telephoned the report including pneumoperitoneum to ICU nurse Huber on 11/13/2020 at 0925 hour s. Reviewed, dictated and finalized at location A. K MANAGER IMPRESSION: Intraperitoneal free air; consider ruptured hollow abdominal viscus Mild infiltrate or atelectasis at the lung bases Dr. Estrada telephoned the report including pneumoperitoneum to ICU nurse Hubre on 11/13/2020 at 0925 hours.
--- NOTE | ~2020-11-11 | CT_ITS ---
EXAMINATION: CT abdomen pelvis wo con DATE: 11/11/2020 21:05 INDICATION: Abdominal distention and pain. TECHNIQUE: Computed tomography (CT) of the abdomen and pelvis was performed without intravenous contr ast. Automated exposure control and iterative reconstruction technique were employed. The dose-length product was 1312.03 mGy-cm. COMPARISON: 01/23/2020 FINDINGS: Unchanged very small right pleural effusion with pleural thickening. There is peripheral round atelec tasis in the right lower lobe with associated volume loss and architectural distortion. Cardiomegaly. No pericardial effusion. 4.3 cm fusiform ascending thoracic aortic aneurysm. There is enlargement of the distal esophagus, unclear whether this is due to fluid within the esophagus, wall thickening or paraesophageal varices. Multiple chronic bilateral rib fractures. Metallic stem for a right shoulder arthroplasty is seen at the proximal right humeral diaphysis. Pin and cerclage wire fixation at the r ight elbow likely at the olecranon is seen on the tube heater topogram. Shrunken nodular cirrhotic liver. Large amount of ascites scattered throughout the abdomen and pelvis . Multiple gallstones in the dependent aspect of the normal gallbladder with no wall thickening or in flammatory changes in the pericholecystic fat to suggest acute cholecystitis. Again seen are multiple additional stones in the distal aspect of the common bile duct which remains dilated to approximatel y 10 mm distally but with no evident dilation of the more proximal common bile duct or intrahepatic b iliary tree. Spleen, pancreas, bilateral adrenal glands and kidneys are normal. There is wall thicken ing throughout much of the colon as well as along a few loops of proximal jejunum. No pneumatosis or free intraperitoneal gas. No bowel obstruction. Normal appendix. Bladder is normal. Status post prost atectomy with multiple surgical clips in the left and right pelvis consistent with associated pelvic lymph node dissection. No pathologically enlarged abdominal or pelvic lymphadenopathy. Chronic T12 bu rst fracture spanned by posterior spinal fusion with bilateral vertical sandra and pedicle screw fixatio n at each level from T10 through L2 with the exception of T12. Chronic mild T9 compression fracture. IMPRESSION: 1. Cirrhosis with large amount of ascites throughout the abdomen and pelvis. 2. Wall thickening throughout the colon and in the proximal jejunum which could be due to liver disea se or enterocolitis bladder which could be infectious, inflammatory or ischemic in etiology. 3. Enlargement of the distal esophagus which could be due to intraluminal refluxed fluid, nonspecific wall thickening or esophageal varices related to cirrhosis. 4. Cholelithiasis and choledocholithiasis without evident acute cholecystitis or intrahepatic biliary ductal dilation. Reviewed, dictated and finalized at location A. MAKING MACHINE OPERATOR IMPRESSION: 1. Cirrhosis with large amount of ascites throughout the abdomen and pelvis. 2. Wall thickening throughout the colon and in the proximal jejunum which could be due to liver disease or enterocolitis bladder which could be infectious, in flammatory or ischemic in etiology. 3. Enlargement of the distal esophagus which could be due to intraluminal reflu xed fluid, nonspecific wall thickening or esophageal varices related to cirrhos is. 4. Cholelithiasis and choledocholithiasis without evident acute cholecystitis o r intrahepatic biliary ductal dilation.
--- NOTE | 2020-11-11 17:53 | ED.GENADULT ---
HPI - General Adult General Chief complaint: Abdominal Pain Stated complaint: weakness Time Seen by Provider: 11/11/20 17:33 Source: patient Mode of arrival: ambulatory Limitations: no limitations History of Present Illness HPI narrative: A 70-year-old male comes into the emergency department tonight with complaints of abdominal pain and distention. Patient states that he has known cirrhosis and gets routine paracenteses at the [facility]. Patient states he usually gets these every 2 weeks. He has not been able to have it and is a week overdue. Patient also states that he was taking diuretics and was recently taken off of them because of kidney issues. He is does admit to some shortness of breath likely related to the abdominal distention. Patient does state that his cirrhosis is secondary to alcoholism. Patient does admit that he is still drinking 3-5 shots of whiskey per day. Related Data Home Medications Medication Instructions Recorded Confirmed folic acid 1 mg PO DAILY 01/21/20 01/27/20 thiamine HCl (vitamin B1) [Vitamin 50 mg PO DAILY 01/21/20 01/27/20 B-1] cholecalciferol (vitamin D3) 50 mcg PO DAILY 11/11/20 diclofenac sodium 50 mg PO TID 11/11/20 omeprazole 20 mg PO DAILY 11/11/20 spironolactone 100 mg PO QAM 11/11/20 tramadol 100 mg PO Q8H PRN 11/11/20 trazodone 100 mg PO HS PRN 11/11/20 Allergies Allergy/AdvReac Type Severity Reaction Status Date / Time No Known Allergies Allergy Verified 11/11/20 17:57 Review of Systems Review of Systems: Narrative: CONSTITUTIONAL: Denies fever, chills, or sweats. EYES: Denies visual changes, redness, or discharge. ENT: Denies rhinorrhea, congestion, sore throat, or otalgia. CARDIOVASCULAR: Denies chest pain, palpitations, or edema. RESPIRATORY: Endorses shortness of breath. GASTROINTESTINAL: Endorses abdominal pain and distention. GENITOURINARY: Denies dysuria or hematuria. SKIN: Denies rash or itching. MUSCULOSKELETAL: Denies back pain, joint pain, or myalgia. NEUROLOGIC: Denies headache, numbness, dizziness, or weakness. PSYCHIATRIC: Denies anxiety or depression. 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 HEAD: Normocephalic, atraumatic. EYES: PERRLA and EOMI. ENT: Nares clear, no rhinorrhea or epistaxis. Mucous membranes moist. NECK: Supple. No adenopathy or masses. No carotid bruits or JVD CHEST: Clear to auscultation. No respiratory distress. No wheezes rales or rhonchi HEART: Regular rate and rhythm. No murmur heard. Normal peripheral pulses. ABDOMEN: normal active bowel sounds. Significantly distended and protuberant abdomen. Generalized tenderness palpation EXTREMITIES: Normal range of motion. No edema. SKIN: Warm, dry, no rash. NEURO: No focal deficits. Alert and oriented x3. PSYCH: Normal mood and affect. Course Reevaluation(s) Reevaluation #1: Discussed treatment options with patient. After full discussion he elects to stay here [facility] than [facility] Consultations Consultation #1: Discussed case with Dr. Herbert
[2020-11-11] MEDS: ALBUMIN HUMAN 25% 25 GM/100 ML 200 ML IVPB (18:56)
--- NOTE | 2020-11-11 19:30 | PC.NURSE ---
Unable to draw blood despite numerous attempts by various staff in ED and Lab--Dr Greene will do femoral stick.
--- NOTE | 2020-11-11 20:01 | PC.NURSE ---
Blood obtained by Dr Greene via femoral stick to left groin-patient tolerated well
[2020-11-11] MEDS: LACTATED RINGERS 1,000 ML 999 ML IV CONT ×2 (20:07→23:35)
[2020-11-11 20:12] LABS: Basophils Absolute Auto 0.1 K/mm3 (0.0-0.1); Basophils Percent Auto 0.5 % (0.2-1.2); Hematocrit 32.4 % (42.0-52.0); Hemoglobin 11.2 g/dL (14.0-18.0); Immature Granulocyte Absolute 0.26 K/mm3 (0.00-0.031); Immature Granulocyte Percent A 2.2 % (0-0.5); Lymphocytes Absolute Auto 0.42 K/mm3 (0.9-3.2); Lymphocytes Percent Auto 3.6 % (18.3-44.2); Mean Corpuscular HGB Conc 34.6 g/dl (32-36); Mean Corpuscular Hemoglobin 31.5 pg (26-34); Mean Corpuscular Volume 91.3 fl (80-100); Mean Platelet Volume 11.1 fl (7.4-10.4); Monocytes Absolute Auto 0.9 K/mm3 (0.1-0.6); Neutrophils Percent Auto 85.7 % (45.5-73.1); Nucleated Red Blood Cells Perc 0.3 % (0.0-0.2); Platelet Count Result 281 k/mm3 (150-375); Red Blood Count 3.55 M/mm3 (4.6-6.20); Red Cell Distribution Width 16.7 % (11.5-14.5); White Blood Count 11.7 K/mm3 (4.5-10.0)
[2020-11-11 20:24] LABS: Albumin Level 3.1 g/dL (3.5-5.1); Alkaline Phosphatase 217 U/L (38-126); Anion Gap 23 mmol/L (8-16); Aspartate Amino Transferase 194 U/L (17-59); Bilirubin,Total 1.8 mg/dL (0.2-1.3); Blood Urea Nitrogen 80 mg/dL (9-20); Calcium 8.4 mg/dL (8.4-10.2); Carbon Dioxide 8 mmol/L (22-30); Chloride 97 mmol/L (98-107); Estimated CRCL calculation 13 ml/min; Estimated Glomerular Filt Rate 11; Lipase 62 U/L (23-300); Potassium 3.8 mmol/L (3.4-5.0); Sodium 128 mmol/L (137-145)
[2020-11-11 20:26] LABS: Glucose 33 mg/dL (75-110)
[2020-11-11 20:37] LABS: Troponin I 0.083 ng/mL (0.000-0.034)
[2020-11-11 20:48] LABS: Alanine Aminotransferase 62 U/L (4-50)
[2020-11-11 21:00] LABS: Magnesium 1.7 mg/dL (1.6-2.3)
--- NOTE | 2020-11-11 21:20 | PC.NURSE ---
Consent for Paracenthesis obtained
[2020-11-11] MEDS: DEXTROSE 5%/LACTATED RINGERS 1,000 ML 999 ML IV CONT (21:31)
[2020-11-11 22:19] LABS: Glucose Point of Care 92 (65-105)
--- NOTE | 2020-11-11 22:32 | ECG_ITS ---
Measurements Intervals Perkins Rate: 115 P: PA: 0 QRS: -6 QRSD: 153 T: 141 QT: 374 QTc: 519 Interpretive Statements ATRIAL FIBRILLATION WITH RAPID VENTRICULAR RESPONSE LEFT BUNDLE BRANCH BLOCK BASELINE ARTIFACT- I, II, III, AVR, AVL, AVF, V1-V6 ABNORMAL ECG Electronically Signed On 11-12-2020 7:06:10 VBA PROGRAMMER by Jericho Mills D.O.
[2020-11-11] MEDS: carvediloL 3.125 MG TABLET PO (23:30)
[2020-11-11] MEDS: ALBUMIN HUMAN 25% 25 GM/100 ML 100 ML IVPB (23:45)
[2020-11-12] VITALS (29 sets, daily range): BP systolic 67–139; BP diastolic 41–93; PULSE 104–122; RESP 18–24; TEMP 35.8–37.3; O2SAT 90–100; BMI 27.8
[2020-11-12 00:04] LABS: Appearance Peritoneal Fluid Clear (Clear); Color Peritoneal Fluid Yellow (Colorless); Source Peritoneal Fluid Peritoneal Fluid
[2020-11-12 00:05] LABS: Monocytes Peritoneal Fluid 12 %; Neutrophils Peritoneal Fluid 85 % (0-25); Nucleated Cells Peritoneal Flu 16619 /uL (0-500); RBC Peritoneal Fluid 4394 /uL (0-100000)
[2020-11-12 00:06] LABS: Lymphocytes Peritoneal Fluid 3 %
[2020-11-12 00:26] LABS: Add Urine Microscopic? YES; Appearance Urine Turbid (Clear); Bacteria Urine 3+ /hpf; Bilirubin Urine Negative (Negative); Blood Urine 3+ (Negative); Color Urine Yellow (Yellow); Glucose Urine UA Negative (Negative); Ketones Urine Negative (Negative); Leukocyte Esterase Ur 3+ LEU/UL (Negative); Mucus Urine Moderate /lpf; Nitrate Urine Negative (Negative); Protein Urine 2+ mg/dL (Negative); RBC Urine >75 /hpf (0-2); Specific Grav Ur 1.015 (1.001-1.035); Squamous Epithelial Cell Urine Many /hpf (Few); Urobilinogen Urine Negative mg/dL (<2.0); WBC Clumps Urine Present /HPF; WBC Urine >75 /hpf
--- NOTE | 2020-11-12 01:13 | PM.IMHP ---
H&P: HPI History of Present Illness Date/Time: 11/12/20 01:13 Chief Complaint: Fell on the floor and could not get up Narrative: This is an unfortunate 70 year old male with known chronic alcoholic liver disease, cirrhosis, and chronic HTN who presented to the hospital after EMS was called to help get him up off the ground today. The patient reports having increased abdominal distention over the past 3 weeks. He has been experiencing diffuse abdominal pain over the past few days. He usually gets routine paracentesis performed at the [facility] every other week. He denies any recent fevers, chills, chest pain, coughing, or diarrhea. He does report having nausea and vomiting today. He continues to drink alcohol, approximately 4-5 shots of whisky daily. His last drink was around 8 pm last night. The patient was evaluated in the ER and ER provider performed bedside paracentesis and obtained 6.5 L of cloudy fluid which came back showing 16,619 PMN. The patient was started on Zosyn for possible spotaneous bacterial peritonitis. His renal function was also markedly abnormal with a serum Cr of 5.10. EKG demonstrated Atrial fibrillation w/ RVR which is new to him. 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 Cirrhosis Edema HTN (hypertension) Surgical History Surgical History Surgical history unknown Family History Family History Father Diabetes mellitus Other Unknown family medical history Social History Social History Smoking status: Never smoker Alcohol intake: current Drinks per week: 21 Substance use: never Substance use type: does not use Last use: last alcoholic drink 2 days ago per ER report Gender identity (if verbalized by the patient): Male Spiritual care concerns: No Agree to blood products: No Meds Home Medications and Allergies Home Medications Medication Instructions Recorded Confirmed Type folic acid 1 mg PO DAILY 01/21/20 11/12/20 History albuterol sulfate 2 inhalation INHALATION QID #1 each 01/27/20 11/12/20 Rx carvedilol 3.125 mg PO Q12H #30 tablet 02/09/20 11/12/20 Rx hydrocodone-acetaminophen 1 tab PO Q6H PRN 30 Days #20 tablet 02/09/20 11/12/20 Rx lactulose 10 g PO BID 30 Days #1350 ml 02/09/20 11/12/20 Rx nystatin 5 ml PO QID 30 Days #1200 ml 02/09/20 11/12/20 Rx potassium chloride 40 meq PO DAILY #60 tablet 02/09/20 11/12/20 Rx cholecalciferol (vitamin D3) 50 mcg PO DAILY 11/11/20 11/12/20 History diclofenac sodium 50 mg PO TID 11/11/20 11/12/20 History omeprazole 20 mg PO DAILY 11/11/20 11/12/20 History trazodone 100 mg PO HS PRN 11/11/20 11/12/20 History Allergies Allergy/AdvReac Type Severity Reaction Status Date / Time No Known Allergies Allergy Verified 11/11/20 17:57 Vital Signs Vital Signs - 24 hr 11/11/20 17:34 11/11/20 17:54 11/11/20 18:16 Pulse Rate 121 H 119 H 119 H Respiratory Rate 24 H 23 H 24 H Blood Pressure 101/61 79/54 L 92/78 L Pulse Oximetry 99 11/11/20 18:51 11/11/20 19:03 11/11/20 20:07 Pulse Rate 115 H 112 H 111 H Respiratory Rate 29 H 25 H 24 H Blood Pressure 76/64 L 84/74 L 112/83 Pulse Oximetry 98 98 100 11/11/20 20:32 11/11/20 21:30 11/11/20 22:01 Pulse Rate 109 H 120 H 109 H Respiratory Rate 23 H 20 22 H Blood Pressure 129/115 H 139/93 H 127/79 Pulse Oximetry 99 100 100 11/11/20 22:15 11/11/20 23:03 11/11/20 23:16 Pulse Rate 109 H 118 H 117 H Respiratory Rate 21 H 20 21 H Blood Pressure 112/89 128/87 Pulse Oximetry 100 100 11/11/20 23:30 11/11/20 23:32 11/11/20 23:46 Pulse Rate 114 H 115 H 1
[2020-11-12 01:17] LABS: Ammonia 38 umol/L (9-30)
[2020-11-12] MEDS: HYDROcodone/acetaminophen (*CRX) 5-325 MG TABLET 1 TAB PO (01:25)
--- NOTE | 2020-11-12 01:47 | ECHO_ITS ---
Patient Info Name: Armen Cunningham Age: 70 years : 1950 Gender: Male Ht: 70 in Wt: 202 lbs BSA: 2.15 m2 HR: 92 bpm BP: 84 / 58 mmHg Heart Rhythm: Sinus Rhythm, Tachycardia Technical Quality: Poor Exam Date: 11/12/2020 1:21 PM Exam Location: [facility] Pulmonary Exam Room: 206 Patient Status: Inpatient Admit Date: 11/12/2020 Staff Ordering Physician: Migel Hodges MD Skein Dyer: Maddi Welsh RDCS Attending Provider: Migel Hodges MD Exam Type: CA echo dop color flow w con Study Info Complete two-dimensional, color flow and Doppler transthoracic echocardiogram is performed with contrast to opacify the left ventricle and to improve the deliniation of the left ventricle endocardial borders. Contrast/Agitated Saline Contrast/Ag. Saline: Definity Amount: 1.00 ml Reason for Poor Study: poor echocardiographic windows Summary 1. Technically challenging study. 2. Definity contrast injected to improve visualization. 3. Normal left ventricular systolic function with paradoxical septal motion due to bundle branch block. 4. Sclerotic aortic valve which is not stenotic. 5. Sinus tachycardia, study ordered because of atrial fibrillation. Left Ventricular Outflow Tract Name Value Normal LVOT 2D LVOT Diameter 1.97 cm LVOT Doppler LVOT Peak Gradient 9 mmHg LVOT Mean Gradient 5 mmHg LVOT VTI 26.56 cm LVOT VTI/AV VTI Ratio 0.94 LVOT Stroke Volume 81.17 ml LVOT CO 19.84 l/min LVOT CI 9.24 L/min/m2 Pulmonic Valve Name Value Normal PV Doppler PV Peak Gradient 2 mmHg Mitral Valve Name Value Normal MV Doppler MV Decel [place] 1,321.67 cm/s2 MV PHT 0 s MV Area (PHT) 11.90 cm2 4.00-5.00 MV Diastolic Function MV E Peak Velocity 84.29 cm/s MV A Peak Velocity 1.29 cm/s MV E/A 65.38 MV Decel Time 0 s Tricuspid Valve Name Value Normal TV Regurgitation Doppler TR Peak Ve
[2020-11-12 02:09] LABS: Glucose Point of Care 140 (65-105)
[2020-11-12 02:20] LABS: Creatine Kinase 581 U/L (55-170)
--- NOTE | 2020-11-12 02:58 | ADMGEN ---
This patient, Armen Cunningham, was admitted to IMU Room 206-02 at 0136. Patient/family oriented to hospital policies and general routines including ID bracelet, bed and alarms, visiting hours, pain management, procedures, bathroom and other care routines, personal items, smoking policy, room service/diet, and visiting hours. Information on how to activate the Rapid Response Team has been discussed. Patient/Family are encouraged to report perceived risks to care and to ask questions if they do not understand what they are told or what they should do.
[2020-11-12 04:47] LABS: Basophils Absolute Auto 0.1 K/mm3 (0.0-0.1); Basophils Percent Auto 0.5 % (0.2-1.2); Eosinophils Percent Auto 0.1 % (0-4.4); Hematocrit 32.1 % (42.0-52.0); Immature Granulocyte Absolute 0.23 K/mm3 (0.00-0.031); Immature Granulocyte Percent A 1.7 % (0-0.5); Lymphocytes Absolute Auto 0.83 K/mm3 (0.9-3.2); Lymphocytes Percent Auto 6.3 % (18.3-44.2); Mean Corpuscular HGB Conc 34.3 g/dl (32-36); Mean Corpuscular Volume 90.4 fl (80-100); Mean Platelet Volume 11.1 fl (7.4-10.4); Monocytes Absolute Auto 0.7 K/mm3 (0.1-0.6); Monocytes Percent Auto 5.5 % (2.6-8.5); Neutrophils Absolute Auto 11.4 K/mm3 (1.3-6.7); Neutrophils Percent Auto 85.9 % (45.5-73.1); Platelet Count Result 187 k/mm3 (150-375); Red Blood Count 3.55 M/mm3 (4.6-6.20); Red Cell Distribution Width 16.4 % (11.5-14.5); White Blood Count 13.3 K/mm3 (4.5-10.0)
[2020-11-12 05:19] LABS: Alanine Aminotransferase 138 U/L (4-50); Albumin Level 2.2 g/dL (3.5-5.1); Alkaline Phosphatase 119 U/L (38-126); Anion Gap 13 mmol/L (8-16); Aspartate Amino Transferase 624 U/L (17-59); Bilirubin,Total 1.5 mg/dL (0.2-1.3); Blood Urea Nitrogen 77 mg/dL (9-20); Calcium 7.7 mg/dL (8.4-10.2); Carbon Dioxide 15 mmol/L (22-30); Chloride 98 mmol/L (98-107); Estimated CRCL calculation 14 ml/min; Estimated Glomerular Filt Rate 12; Glucose 118 mg/dL (75-110); Potassium 3.3 mmol/L (3.4-5.0); Sodium 126 mmol/L (137-145)
[2020-11-12] MEDS: SODIUM CHLORIDE 0.9% IV 250 ML 999 ML IV CONT (06:01)
[2020-11-12 07:45] LABS: Reflex Lactic Acid Yes or No Add Lactic
[2020-11-12 08:16] LABS: Glucose Point of Care 105 (65-105)
[2020-11-12 08:35] LABS: Lactic Acid 5.4 mmol/L (0.7-2.1)
[2020-11-12] MEDS: THIAMINE HCL 200 MG/2 ML VIAL 100 MG IV PUSH (09:17)
--- NOTE | 2020-11-12 09:31 | PM.CNCAR ---
Assessment and Plan Additional Plan 70-year-old man with: Sinus rhythm/sinus tachycardia with chronic left bundle branch block. Admission electrocardiogram was interpreted as atrial fibrillation but most likely he is sinus rhythm since that he is now and has been in the past. There was quite a bit of baseline artifact on that electrocardiogram making the diagnosis of his atrial rhythm rather challenging in my opinion I believe the diagnosis of atrial fibrillation should be discarded at this point I would not going to recommend further cardiac evaluation. He is not here with a cardiac problem he probably does not have to be kept on telemetry. Cardiology is signing off Armen Amador MD [facility] History of Present Illness History of Present Illness Consult date/time: 11/12/20 09:31 Reason For Visit: Ascites r/o SBP Narrative: This is a 70-year-old man I was consulted to see by the hospitalist because of the impression that he had atrial fibrillation as a new diagnosis prompting a consultation for me to see him today. He came into the emergency room yesterday not because of any concern regarding his heart but because he had increasing ascitic fluid in his abdomen some abdominal pain. He apparently is a patient with well known alcoholic cirrhosis with ascites and gets his medical care at the OR. He was told by his physician that he probably needed a paracentesis and come to this hospital to have it performed. They saw him in the emergency room I perceived quite a bit of ascitic fluid a paracentesis was done. Apparently because the fluid return was cloudy there was concern about spontaneous bacterial peritonitis and he was then admitted to the hospital. His electrocardiogram in the emergency room had a lot of baseline artifact making the diagnosis of atrial rhythm very difficult he did have a QRS complex compatible with left bundle branch block. On telemetry appear in the IMU he clearly is in sinus rhythm/sinus tachycardia with left bundle branch block. He was in this hospital earlier in 2019 in the springtime electrocardiogram during that hospitalization is unchanged. He states that he is not known to have any cardiac problems once again he gets all of his medical care at the [facility]. He is a alcoholic was actively drinking whiskey despite the diagnosis of alcoholic cirrhosis with ascites. His laboratory data demonstrates a significant auto coagulopathy as well as relatively severe acute on chronic renal failure with a creatinine of 4.8. Review of Systems Constitutional: Constitutional: Reports weakness Eyes: Eyes: Reports no additional eye complaints ENT: Reports system reviewed and no additional complaints, except as documented Cardiovascular: Cardiovascular: Reports no additional cardiovascular complaints Respiratory: Respiratory: Reports no additional respiratory complaints Gastrointestinal: Gastrointestinal: Reports as per HPI and Reports abdominal pain Genitourinary: Genitourinary: Reports no additional male genitourinary complaints Musculoskeletal: Musculoskeletal: Reports myalgias Integumentary/Breasts: Skin/Breast: Reports system reviewed and no additional complaints, except as docu Neurologic: Reports system reviewed and no additional complaints, except as documented Endocrine: Endocrine: Reports no additional endocrine complaints Hematologic/Lymphatic: Hematologic/Lymphatic: Reports no additional hematologic/lymphatic complaints Allergic/Immunologic: Allergic/Immunologic: Reports no additional allergic/immunologic complaints PMFSH Past Medical History Medical History 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
[2020-11-12] MEDS: chlordiazePOXIDE (*CRX) 25 MG CAPSULE PO ×2 (10:13→17:21)
[2020-11-12 11:50] LABS: Glucose Point of Care 96 (65-105)
--- NOTE | 2020-11-12 13:29 | P.CONNP_ITS ---
Assessment and Plan Assessment and plan (1) Acute renal failure: Qualifiers: Acute renal failure type: unspecified Qualified Code(s): N17.9 - Acute kidney failure, unspecified Code(s): N17.9 - Acute kidney failure, unspecified Status: Acute Assessment and Plan: * not entirely clear what baseline creatinine is.... * last creatinine on record is 1.7mg/dl in January 2020 - attempt to get records from [place] - he has had SCOT in the past with his creatinine as high as on admission before * suspect etiology of SCOT is multifactorial: - hypotension (from liver disease versus early sepsis) - infection (SBP +/- UTI) - possible hepatorenal syndrome - I suppose abdominal compartment syndrome is possible (but he is already s/p paracentesis) - previous diuretic use * would focus on optimization of hemodynamics - consider using midodrine - may need pressor support if systolic BP continues to drop * renal ultrasound normal * follow-up on urine studies * given poor urine output, he remains at high risk for needing HEALTHCARE REPRESENTATIVE/dialysis but his hypotension/hemodynamics may make this intervention difficult (2) Hyponatremia: Code(s): E87.1 - Hypo-osmolality and hyponatremia Status: Acute Assessment and Plan: * likely a manifestation of his liver disease and SCOT/ARF * suspect he has a chronic component at baseline * agree with fluid restriction * suspect paracentesis has helped as well (3) Hypotension: Code(s): I95.9 - Hypotension, unspecified Status: Acute Assessment and Plan: * due to liver disease (decreased effective circulating volume leading to chronic pre-renal azotemia worsened by need for chronic diuretic therapy) * however, cannot discount early sepsis with likely SBP and possible UTI * unfortunately, fluid resuscitation likely to just worsen ascites and may not help BP * consider midodrine versus IV albumin but may need vasopressor support * follow hemodynamics (4) SBP (spontaneous bacterial peritonitis): Code(s): K65.2 - Spontaneous bacterial peritonitis Status: Acute Assessment and Plan: * highly suggestive based on ascites cell count and appearance * follow cultures * on antibiotics (5) UTI (urinary tract infection): Qualifiers: Hematuria presence: without hematuria Urinary tract infection type: acute cystitis Qualified Code(s): N30.00 - Acute cystitis without hematuria Code(s): N39.0 - Urinary tract infection, site not specified Status: Acute Assessment and Plan: * somewhat indicative by urinalysis * follow culture results * on antibiotics (6) Metabolic acidosis: Code(s): E87.2 - Acidosis Status: Acute Assessment and Plan: * probably due to SCOT/ARF * however, suboptimal hemodynamics/blood pressure likely contributing * consider bicarb gtt but this may make his volume/respiratory status worse * possible initiation of oral sodium bicarbonate?? * follow trend for now (7) Altered mental status: Code(s): R41.82 - Altered mental status, unspecified Status: Acute Assessment and Plan: * seems to be a bit lethargic * due to liver disease (elevated ammonia), low BP, infection, or possibly all of these issues * may need to discuss with family goals of care given his multiple medical issues/problems at this time Greater than 20 min was spent in detailed review of the electronic medical records incl
--- NOTE | 2020-11-12 13:29 | PM.CNNEP ---
Assessment and Plan Assessment and plan (1) Acute renal failure: Qualifiers: Acute renal failure type: unspecified Qualified Code(s): N17.9 - Acute kidney failure, unspecified Code(s): N17.9 - Acute kidney failure, unspecified Status: Acute Assessment and Plan: not entirely clear what baseline creatinine is.... last creatinine on record is 1.7mg/dl in January 2020 - attempt to get records from [place] - he has had SCOT in the past with his creatinine as high as on admission before suspect etiology of SCOT is multifactorial: - hypotension (from liver disease versus early sepsis) - infection (SBP +/- UTI) - possible hepatorenal syndrome - I suppose abdominal compartment syndrome is possible (but he is already s/p paracentesis) - previous diuretic use would focus on optimization of hemodynamics - consider using midodrine - may need pressor support if systolic BP continues to drop renal ultrasound normal follow-up on urine studies given poor urine output, he remains at high risk for needing ALARM FIELD TECHNICIAN/dialysis but his hypotension/hemodynamics may make this intervention difficult (2) Hyponatremia: Code(s): E87.1 - Hypo-osmolality and hyponatremia Status: Acute Assessment and Plan: likely a manifestation of his liver disease and SCOT/ARF suspect he has a chronic component at baseline agree with fluid restriction suspect paracentesis has helped as well (3) Hypotension: Code(s): I95.9 - Hypotension, unspecified Status: Acute Assessment and Plan: due to liver disease (decreased effective circulating volume leading to chronic pre-renal azotemia worsened by need for chronic diuretic therapy) however, cannot discount early sepsis with likely SBP and possible UTI unfortunately, fluid resuscitation likely to just worsen ascites and may not help BP consider midodrine versus IV albumin but may need vasopressor support follow hemodynamics (4) SBP (spontaneous bacterial peritonitis): Code(s): K65.2 - Spontaneous bacterial peritonitis Status: Acute Assessment and Plan: highly suggestive based on ascites cell count and appearance follow cultures on antibiotics (5) UTI (urinary tract infection): Qualifiers: Hematuria presence: without hematuria Urinary tract infection type: acute cystitis Qualified Code(s): N30.00 - Acute cystitis without hematuria Code(s): N39.0 - Urinary tract infection, site not specified Status: Acute Assessment and Plan: somewhat indicative by urinalysis follow culture results on antibiotics (6) Metabolic acidosis: Code(s): E87.2 - Acidosis Status: Acute Assessment and Plan: probably due to SCOT/ARF however, suboptimal hemodynamics/blood pressure likely contributing consider bicarb gtt but this may make his volume/respiratory status worse possible initiation of oral sodium bicarbonate?? follow trend for now (7) Altered mental status: Code(s): R41.82 - Altered mental status, unspecified Status: Acute Assessment and Plan: seems to be a bit lethargic due to liver disease (elevated ammonia), low BP, infection, or possibly all of these issues may need to discuss with family goals of care given his multiple medical issues/problems at this time Greater than 20 min was spent in detailed review of the electronic medical records including his previous history of acute kidney injury/acute renal failure and attempts to discuss the seriousness of his condition with the patient which is complicated by my concerns that he may not fully understand the severity of his current illness due to his mental status at this time. Will continue to follow. History of Present Illness Reason for Consult Consult date: 11/12/20 Reason for consult: acute [place]
--- NOTE | 2020-11-12 14:28 | PM.IMPN ---
Progress Note: A&P Assessment and Plan (1) SBP (spontaneous bacterial peritonitis): Code(s): K65.2 - Spontaneous bacterial peritonitis Status: Acute Assessment and Plan: Lactic level is still high. Continue Zosyn for presumed spontaneous bacterial peritonitis as the patient's peritoneal fluid had more than 250 PMNs. peritoneal fluid culture is pending. (2) Atrial fibrillation with rapid ventricular response: Code(s): I48.91 - Unspecified atrial fibrillation Status: Acute Assessment and Plan: New onset atrial fibrillation with RVR. Continue telemetry. Pt seen by cardiology (3) Acute renal failure: Qualifiers: Acute renal failure type: unspecified Qualified Code(s): N17.9 - Acute kidney failure, unspecified Code(s): N17.9 - Acute kidney failure, unspecified Status: Acute Assessment and Plan: Rule out hepatorenal syndrome as the patient does have a significant rise in his serum creatinine. Nephrology consulted. (4) Sepsis: Qualifiers: Sepsis type: sepsis due to unspecified organism Sepsis acute organ dysfunction status: with acute organ dysfunction Severe sepsis acute organ dysfunction type: acute renal failure Acute renal failure type: unspecified Severe sepsis shock status: without septic shock Qualified Code(s): A41.9 - Sepsis, unspecified organism; R65.20 - Severe sepsis without septic shock; N17.9 - Acute kidney failure, unspecified Code(s): A41.9 - Sepsis, unspecified organism Status: Acute Assessment and Plan: Patient is septic with tachycardia, tachypnea. source of sepsis appears to be peritoneal. Continue IV antibiotics. Bp remains soft continue to watch, UO is poor. Pt to have akbumin boluses. (5) Chronic anemia: Code(s): D64.9 - Anemia, unspecified Status: Acute Assessment and Plan: Likely combination of anemia of chronic disease as well as chronic alcoholism. (6) Acute hyponatremia: Code(s): E87.1 - Hypo-osmolality and hyponatremia Status: Acute Assessment and Plan: Clearly a appears to be hypervolemic hyponatremia.. (7) Elevated troponin: Code(s): R79.89 - Other specified abnormal findings of blood chemistry Status: Acute Assessment and Plan: troponin leak is likely secondary to acute renal failure. (8) Metabolic acidosis with increased anion gap and accumulation of organic acids: Code(s): E87.2 - Acidosis Status: Acute (9) Abnormal urinalysis: Code(s): R82.90 - Unspecified abnormal findings in urine Status: Acute Assessment and Plan: Will out complicated urinary tract infection. Urine cultures pending. (10) Alcoholic hepatitis with ascites: Code(s): K70.11 - Alcoholic hepatitis with ascites Status: Acute Assessment and Plan: Patient has evidence ongoing alcoholic hepatitis with ascites. tonight the patient underwent paracentesis. PT remains full code (11) Alcohol abuse: Code(s): F10.10 - Alcohol abuse, uncomplicated Status: Chronic Assessment and Plan: I have counseled the patient on alcohol cessation and he has verbalized his understanding of same. (12) HTN (hypertension): Qualifiers: Hypertension type: unspecified Qualified Code(s): I10 - Essential (primary) hypertension Code(s): I10 - Essential (primary) hypertension Status: Chronic Assessment and Plan: bp is soft hold bp medications Subjective Date/time seen: 11/12/20 14:28 Interval history: 1 year old male with known chronic alcoholic liver disease, cirrhosis, and chronic HTN who presented to the hospital after EMS was called to help get him up off the ground today. Pt admitted with gross ascites, secondary to liver cirrhois, SCOT and SBP. Pt is still drinking alcholol. Review of Systems Review of Systems: All systems reviewed & are unrema
[2020-11-12] MEDS: ALBUMIN HUMAN 25% 25 GM/100 ML 100 ML IVPB (15:08)
[2020-11-12] MEDS: POTASSIUM CHLORIDE 20 MEQ PACKET (FOR LIQUID) 40 MEQ PO (15:35)
[2020-11-12 16:32] LABS: Glucose Point of Care 36 (65-105)
[2020-11-12 16:32] LABS: Glucose Point of Care 42 (65-105)
[2020-11-12] MEDS: DEXTROSE 50% 25 GM/50 ML SYRINGE IV PUSH ×2 (17:21→21:04)
[2020-11-12 17:43] LABS: Glucose Point of Care 103 (65-105)
[2020-11-12 17:43] LABS: Glucose Point of Care 50 (65-105)
[2020-11-12] MEDS: GLUCOSE ORAL GEL 15 GM OF GLUCSE IN 37.5 GM TUBE PO (19:45)
[2020-11-12] MEDS: SODIUM CHLORIDE 0.9% IV 500 ML 999 ML IV CONT ×2 (19:46→21:10)
[2020-11-12 20:23] LABS: Glucose Point of Care 69 (65-105)
[2020-11-12 20:36] LABS: Glucose Point of Care 56 (65-105)
[2020-11-12] MEDS: GLUCAGON FOR INJ 1 MG VIAL IM (20:43)
[2020-11-12 21:28] LABS: Glucose Point of Care 118 (65-105)
[2020-11-12 21:28] LABS: Glucose Point of Care 54 (65-105)
[2020-11-12 21:28] LABS: Glucose Point of Care > 500 (65-105)
[2020-11-12] MEDS: hetaSTARCH 6%/NACL 500 ML 250 ML IV CONT (22:35)
[2020-11-12 23:41] LABS: Glucose Point of Care 134 (65-105)
[2020-11-13] VITALS (13 sets, daily range): BP systolic 70–112; BP diastolic 42–85; PULSE 90–110; RESP 21–25; TEMP 35.9; O2SAT 90–100
[2020-11-13] MEDS: NOREPINEPHRINE 8 MG/D5W 250 ML 8 MG/250 ML BAG 9.38 MG IV CONT (01:45)
--- NOTE | 2020-11-13 02:06 | P.PNCROSS_ITS ---
Event Note Event Note Event Note: Transfer note Called by nursing staff to evaluate this 70-year-old male whom I admitted yesterday for possible spontaneous bacterial peritonitis, acute renal failure, and metabolic acidosis secondary to hypotension. It appears that the patient has had significant arterial hypotension all throughout the day yesterday and this evening nursing staff alerted me that the patient's blood pressure was 68/51 mm Hg. on review of the chart it appears that the patient only got 25 g of albumin yesterday. I administered 1 L of normal saline IV bolus given over 2 hours which did not resolve the patient's hypotension this evening. Following this I did obtain a chest x-ray which demonstrated pulmonary congestion although the patient was not requiring any supplemental oxygen. I then administered 250 cc of Hespan IV. following this IV bolus the patient did become more short of breath and continued to have significant arterial hypotension. I have consulted our library services dean, Dr. Ovalle and discussed with him the need of transferring the patient to the ICU for vasopressor support. our library services dean has agreed with my plan and I have transferred the patient to the ICU, and I have placed a central IV line and started Levophed IV for vasopressor support. At this time I will recheck the patient's lactic acid, metabolic panel, and ABG to assess whether not the patient needs further treatment. We will continue the patient's IV antibiotics. Continue close monitoring in ICU setting.
--- NOTE | 2020-11-13 02:12 | P.PCNBED_ITS ---
Procedures Central Line Placement Left Femoral: Central Line Date: 11/13/20 Central Line Time: 01:45 Discussed w/ the patient/family/POA,the placement of a central venous catheter, including its clinical necessity/indication & associated potential risks, benifits and alternatives.: Yes Time Out Performed: Yes Patient Position: supine Patient placed on monitor/pulse ox: Yes Provider Prep: mask, sterile gown, sterile gloves, Max. sterile barrier precautions, cap and hand hygiene with conventional soap/water or alcohol based hand rub Central line prep: 2% Chlorhexidine scrub Local anesthesia used: lidocaine 1% Amount of anesthesia used (ml): 5 Sterile US Technique with sterile gel/sterile probe covers: Yes Central line lumen inserted: triple Tamazight: 7 Length (cm): 20 Depth of Insertion (cm): 20 Post Procedure: sutured in place, good blood return, all ports aspirated, flushed, capped, transparent dressing, securement product and aseptic technique maintained throughout procedure Patient tolerated procedure: well and no complications Complications: none Additional comments: Date of service was 11/13/2020 at 01:45 hrs
--- NOTE | 2020-11-13 02:15 | PC.NURSE ---
This patient, Armen Cunningham, was transferred to [ ICU 6] for central line insertion and pressor therapy on 11/13/20 at 0100. Personal belongings and personal medications sent with patient. Report given to [ Cassie]. Appropriate documentation sent with patient.
[2020-11-13 02:19] LABS: Glucose Point of Care 75 (65-105)
[2020-11-13 02:27] LABS: Hematocrit 31.4 % (42.0-52.0); Hemoglobin 10.8 g/dL (14.0-18.0); Mean Corpuscular HGB Conc 34.4 g/dl (32-36); Mean Corpuscular Hemoglobin 30.9 pg (26-34); Mean Platelet Volume 11.8 fl (7.4-10.4); Platelet Count Result 198 k/mm3 (150-375); Red Blood Count 3.49 M/mm3 (4.6-6.20); White Blood Count 24.3 K/mm3 (4.5-10.0)
[2020-11-13 02:35] LABS: Anion Gap 13 mmol/L (8-16); Blood Urea Nitrogen 80 mg/dL (9-20); Calcium 8.3 mg/dL (8.4-10.2); Carbon Dioxide 12 mmol/L (22-30); Chloride 98 mmol/L (98-107); Estimated CRCL calculation 12 ml/min; Estimated Glomerular Filt Rate 11; Glucose 98 mg/dL (75-110); Potassium 5.2 mmol/L (3.4-5.0); Sodium 123 mmol/L (137-145)
[2020-11-13 02:44] LABS: Lactic Acid Reflex 6.3 mmol/L (0.7-2.1)
[2020-11-13 02:46] LABS: Alveolar/Arterial O2 Gradient 80.7 mmHg; Base Excess ABG -13.8 mEq/l (+/-2.0); Fractional Inspired Oxygen 28 %; HCO3 ABG 10.7 mEq/l (22.0-26.0); Oxygen Content ABG 16.7 %vol (16.0-22.0); Oxygen Saturation ABG 96.5 % (95.0-100.0); Oxyhemoglobin 94.6 % THb (90.0-100.0); PO2 ABG 92.5 mmHg (80.0-100.0); Total Hemoglobin 12.5 g/dL (12.0-18.0); pH ABG 7.298 (7.350-7.450)
[2020-11-13 02:48] LABS: Device NASAL CANNULA; Modified Allen's Test Pass; PCO2 ABG 22.4 mmHg (35.0-45.0); Site Drawn RIGHT RADIAL
[2020-11-13 02:55] LABS: Band Neutrophils Percent 15 % (0-6); Lymphocytes Absolute Manual 1.45 K/mm3 (1.1-4.5); Monocytes Absolute Manual 1.21 K/mm3 (0.1-0.90); Monocytes Percent Manual 5 % (3-9); Neutrophils Absolute Manual 21.62 K/mm3 (1.3-6.7); Neutrophils Percent Manual 74 % (46-73); Total Cells Counted 100
[2020-11-13 02:56] LABS: Anisocytosis 1+ (NORMAL); Platelet Estimate Adequate (Adequate)
[2020-11-13] MEDS: SODIUM BICARBONATE 8.4% 150 MEQ in DEXTROSE 5% 1,000 ML 950 ML 70 MEQ IV CONT (03:56)
[2020-11-13 04:17] LABS: Ammonia 24 umol/L (9-30)
[2020-11-13 05:19] LABS: Reflex Lactic Acid Yes or No Add Lactic
[2020-11-13] MEDS: CENTRAL LINE FLUSH 10 ML IV PUSH (05:42)
[2020-11-13 05:55] LABS: Glucose Point of Care 73 (65-105)
[2020-11-13] MEDS: DEXTROSE 50% 25 GM/50 ML SYRINGE IV PUSH (06:44)
[2020-11-13 07:39] LABS: Glucose Point of Care 131 (65-105)
--- NOTE | 2020-11-13 09:42 | WPDCNINT ---
Assessment and Plan Assessment and plan (1) Septic shock: Code(s): A41.9 - Sepsis, unspecified organism; R65.21 - Severe sepsis with septic shock Status: Acute Assessment and Plan: Patient septic shock with leukocytosis, lactic acidosis, UTI, SBP, pneumoperitoneum -was hypotensive, refractory to IV fluids, Hespan, albumin -central line was inserted, on Levophed -continue Zosyn (2) Acute renal failure: Qualifiers: Acute renal failure type: unspecified Qualified Code(s): N17.9 - Acute kidney failure, unspecified Code(s): N17.9 - Acute kidney failure, unspecified Status: Acute Assessment and Plan: Acute on chronic kidney disease most likely related to shock hypotension, infection -nephrology following the patient -patient's family has decided to make him comfort measures (3) Encephalopathy acute: Code(s): G93.40 - Encephalopathy, unspecified Status: Acute Assessment and Plan: Encephalopathy likely related to hepatic encephalopathy, metabolic encephalopathy, infection septic shock -will treat underlying cause (4) Metabolic acidosis: Code(s): E87.2 - Acidosis Status: Acute Assessment and Plan: Acidosis likely related to septic shock, lactic acidosis, liver dysfunction -continue bicarb infusion (5) Alcoholic hepatitis with ascites: Code(s): K70.11 - Alcoholic hepatitis with ascites Status: Acute Assessment and Plan: Patient with liver dysfunction with a ascites -paracentesis on 11/11/2020 with removal of 6.5 L of peritoneal fluid - (6) SBP (spontaneous bacterial peritonitis): Code(s): K65.2 - Spontaneous bacterial peritonitis Status: Acute Assessment and Plan: SBP, on Zosyn (7) Acute hyponatremia: Code(s): E87.1 - Hypo-osmolality and hyponatremia Status: Acute (8) UTI (urinary tract infection): Qualifiers: Hematuria presence: without hematuria Urinary tract infection type: acute cystitis Qualified Code(s): N30.00 - Acute cystitis without hematuria Code(s): N39.0 - Urinary tract infection, site not specified Status: Acute Assessment and Plan: Patient with E coli UTI -continue Zosyn (9) Pneumoperitoneum: Code(s): K66.8 - Other specified disorders of peritoneum Status: Acute Assessment and Plan: Possible viscus perforation, -elevated lactic acid -family has made patient comfort measures Additional Plan Discussed with brothers x2 with made him comfort measures, hospice is here to evaluate the patient Code status: DNR CCM time spent: 41 minutes Due to a high probability of clinically significant, life threatening deterioration, the patient required my highest level of preparedness to intervene emergently and I personally spent this critical care time directly and personally managing the patient. This critical care time included obtaining a history; examining the patient; pulse oximetry; ordering and review of studies; arranging urgent treatment with development of a management plan; evaluation of patient's response to treatment; frequent reassessment; and discussions with other providers. It was exclusive of separately billable procedures and treating other patients and teaching time. Please see Assessment and Plan section and the rest of the note for further information on patient assessment and treatment Industrial Electrical Engineer Consult Note Consult date: 11/13/20 Time Seen: 07:02 Reason for consult: Septic shock, SBP, ascites paracentesis with removal of 6.5 L of cloudy fluid in the ER, acute kidney injury, chronic liver disease , cirrhosis HPI: Armen Cunningham is a 70 year old male he was chronic alcoholic liver disease, cirrhosis, chronic hypertension presented the ED on 11/11/2020 ER 1 pressure EKG intrinsic rhythm short about EMS was called to help A get up off the ground. Patient reported that he has been having increased abdominal distent
--- NOTE | 2020-11-13 09:43 | WPDGICN ---
Assessment and Plan Assessment and plan (1) Sepsis: Qualifiers: Sepsis type: sepsis due to unspecified organism Sepsis acute organ dysfunction status: with acute organ dysfunction Severe sepsis acute organ dysfunction type: acute renal failure Acute renal failure type: unspecified Severe sepsis shock status: without septic shock Qualified Code(s): A41.9 - Sepsis, unspecified organism; R65.20 - Severe sepsis without septic shock; N17.9 - Acute kidney failure, unspecified Code(s): A41.9 - Sepsis, unspecified organism Status: Acute Assessment and Plan: he is acutely ill, on levophed and iv antibiotics, now in ICU (2) SBP (spontaneous bacterial peritonitis): Code(s): K65.2 - Spontaneous bacterial peritonitis Status: Acute Assessment and Plan: confirmed by paracentesis on iv zosyn, also will give iv albumin (1.5g/kg today and 1g/kg on day 3) (3) Hepatorenal syndrome: Code(s): K76.7 - Hepatorenal syndrome Status: Acute Assessment and Plan: worsening renal failure treated with levophen to keep MAP >65, also iv albumin nephrology to see poor prognosis (4) Acute on chronic kidney failure: Qualifiers: Acute renal failure type: with other specified pathological lesion Chronic kidney disease stage: stage 3 (moderate) Chronic kidney disease stage 3 subtype: stage 3a (GFR 45-59) Qualified Code(s): N17.8 - Other acute kidney failure; N18.31 - Chronic kidney disease, stage 3a Code(s): N17.9 - Acute kidney failure, unspecified; N18.9 - Chronic kidney disease, unspecified Status: Acute (5) Metabolic acidosis with increased anion gap and accumulation of organic acids: Code(s): E87.2 - Acidosis Status: Acute Assessment and Plan: with sepsis, SBP and SCOT supportive care in icu (6) Ascites due to alcoholic cirrhosis: Code(s): K70.31 - Alcoholic cirrhosis of liver with ascites Status: Acute (7) Atrial fibrillation with rapid ventricular response: Code(s): I48.91 - Unspecified atrial fibrillation Status: Acute (8) Metabolic acidosis: Code(s): E87.2 - Acidosis Status: Acute (9) Alcohol abuse: Code(s): F10.10 - Alcohol abuse, uncomplicated Status: Chronic Assessment and Plan: thiamine, nutrition support monitor for withdrawal (10) Encephalopathy acute: Code(s): G93.40 - Encephalopathy, unspecified Status: Acute GI Consult Note Consult date/time: 11/13/20 09:43 Reason for consult: SBP, decompensated cirrhosis, scot HPI: Armen Cunningham is a 70 year old male with alcoholic cirrhosis and ascites who normally gets large volume paracentesis at the [facility] every other week, also history of HTN. He was brought here after he was found in the floor (he is poor historian and information also obtained from records). Also patient complaining of more abdominal pain and distension. Also had nausea and vomiting, still drinking alcohol, approximately 4-5 shots of whisky daily. His last drink was 8 pm night before admission. He had bedside paracentesis and obtained 6.5 L of cloudy fluid consistent with SBP, nucleated cells 16,619 with 85% PMN. The patient was started on Zosyn for spontaneous bacterial peritonitis, also noted worsening renal function with Cr 5.1 (baseline ~ 2), WBC 24, Hb 10.8, plat 198, inr 1.5, lactic 6. EKG demonstrated Atrial fibrillation w/ RVR. Admitted to floor but hypotensive and now he is in ICU, started on levophed. Review of Systems Constitutional: Constitutional: Reports fatigue and Reports lethargy Eyes: Eyes: Reports no additional eye complaints ENT: Reports system reviewed and no additional complaints, except as documented Cardiovascular: Cardiovascular: Reports palpitations Respiratory: Respiratory: Denies cough Gastrointestinal: Gastrointestinal: Reports abdominal pain, Reports nausea and Reports vomiting Genitourinary: Genitourina
[2020-11-13] MEDS: ALBUMIN HUMAN 25% 25 GM/100 ML 200 ML IVPB (10:07)
--- NOTE | 2020-11-13 11:17 | PM.DS ---
DS: Admitting Diagnosis Admitting Diagnosis Admitting Diagnosis: Chief Complaint: Fell on the floor and could not get up DS: Discharge Diagnosis Discharge Diagnosis (1) SBP (spontaneous bacterial peritonitis): Code(s): K65.2 - Spontaneous bacterial peritonitis Status: Acute Assessment and Plan: Admit to IMU, telemetry. Continue Zosyn for presumed spontaneous bacterial peritonitis as the patient's peritoneal fluid had more than 250 PMNs. peritoneal fluid culture is pending. Monitor vital signs and urine output closely. (2) Atrial fibrillation with rapid ventricular response: Code(s): I48.91 - Unspecified atrial fibrillation Status: Acute Assessment and Plan: New onset atrial fibrillation with RVR. Continue telemetry. Check troponin. We will consider rate-controlling medications if the patient's heart rate goes above 120s. Echocardiogram in a.m.. Check TSH reflex T4. (3) Acute renal failure: Qualifiers: Acute renal failure type: unspecified Qualified Code(s): N17.9 - Acute kidney failure, unspecified Code(s): N17.9 - Acute kidney failure, unspecified Status: Acute Assessment and Plan: Rule out hepatorenal syndrome as the patient does have a significant rise in his serum creatinine. His baseline creatinine appears to be 1.0. Check 24 hour proteinuria. Check urine sodium level. Monitor urine output to classify whether not the patient is oliguric. Renally dose medications. Avoid nephrotoxin agents. Check renal ultrasound in a.m.. Nephrology consultation in a.m.. Appreciate Nephrology recommendations. (4) Sepsis: Qualifiers: Sepsis type: sepsis due to unspecified organism Sepsis acute organ dysfunction status: with acute organ dysfunction Severe sepsis acute organ dysfunction type: acute renal failure Acute renal failure type: unspecified Severe sepsis shock status: without septic shock Qualified Code(s): A41.9 - Sepsis, unspecified organism; R65.20 - Severe sepsis without septic shock; N17.9 - Acute kidney failure, unspecified Code(s): A41.9 - Sepsis, unspecified organism Status: Acute Assessment and Plan: Patient is septic with tachycardia, tachypnea. source of sepsis appears to be peritoneal. Continue IV antibiotics. Monitor vital signs and urine output closely. Monitor acid-base status closely. Will consider central line placement and vasopressor support if necessary overnight. (5) Chronic anemia: Code(s): D64.9 - Anemia, unspecified Status: Acute Assessment and Plan: Likely combination of anemia of chronic disease as well as chronic alcoholism. Monitor H&H, transfuse p.r.n.. (6) Acute hyponatremia: Code(s): E87.1 - Hypo-osmolality and hyponatremia Status: Acute Assessment and Plan: Clearly a appears to be hypervolemic hyponatremia. Expect the patient's serum sodium to improve after getting 6.5 L of peritoneal fluid removed tonight. Will monitor serum sodium. Check urine osmolality as well as urine sodium. (7) Elevated troponin: Code(s): R79.89 - Other specified abnormal findings of blood chemistry Status: Acute Assessment and Plan: troponin leak is likely secondary to acute renal failure. Trend troponin. Monitor for chest pain. Consider cardiology consultation in a.m.. (8) Metabolic acidosis with increased anion gap and accumulation of organic acids: Code(s): E87.2 - Acidosis Status: Acute Assessment and Plan: Metabolic acidosis with increased anion gap appears to be secondary to acute renal failure. Monitor acid-base status closely. (9) Abnormal urinalysis: Code(s): R82.90 - Unspecified abnormal findings in urine Status: Acute Assessment and Plan: Will out complicated urinary tract infection. Urine cultures pending. Continue IV antibiotics for now. (10) Alcoholic hepatitis with ascites: C
--- NOTE | 2020-11-13 12:32 | PC.NURSE ---
Pt discharged to hospice, see new V#
[2020-11-16 13:58] LABS: Amylase Peritoneal Fluid 25 U/L; Lipase Peritoneal Fluid 35 U/L (<10)
[2020-11-19 09:11] LABS: Albumin Peritoneal Fluid 0.4 g/dL
[2020-11-21 13:23] LABS: Glucose Peritoneal Fluid 21 mg/dL; LDH Peritoneal Fluid 318 U/L (<63); Total Protein Peritoneal Fluid <3.0 g/dL
== END 2020-11-13 10:59 | disposition hospice, inpatient (51) | DRG 871 ==
LOC: ANHED 11-12 00:33 → ANHIMU 11-12 02:44 → ANHICU 11-13 11:17 → ANHIMU 11-17 12:52
PROVIDERS: Admitting Provider Family Medicine; Emergency Provider Emergency Medicine; Visit Provider Family Medicine
DX: A41.9 Sepsis, unspecified organism (principal); K76.7 Hepatorenal syndrome; K65.2 Spontaneous bacterial peritonitis; E87.2 Acidosis; N30.00 Acute cystitis without hematuria; G93.40 Encephalopathy, unspecified; E87.1 Hypo-osmolality and hyponatremia; N17.9 Acute kidney failure, unspecified; K66.8 Other specified disorders of peritoneum; R65.20 Severe sepsis without septic shock; Z66 Do not resuscitate; B96.20 Unspecified Escherichia coli [E. coli] as the cause of diseases classified elsewhere; I12.9 Hypertensive chronic kidney disease with stage 1 through stage 4 chronic kidney disease, or unspecified chronic kidney disease; N18.31 Chronic kidney disease, stage 3a; K70.31 Alcoholic cirrhosis of liver with ascites; K70.11 Alcoholic hepatitis with ascites; F10.10 Alcohol abuse, uncomplicated; I48.91 Unspecified atrial fibrillation; D63.8 Anemia in other chronic diseases classified elsewhere; R77.8 Other specified abnormalities of plasma proteins; Z79.899 Other long term (current) drug therapy
CPT/HCPCS: 36415; 36600; 71045; 74176; 76775; 80048; 80053; 81001; 82042; 82140; 82150; 82550; 82805; 82945; 82948; 83605; 83615; 83690; 83735; 84157; 84443; 84484; 85025; 87040; 87077; 87086; 87088; 87186; 89051; 93005; 94640; A9270; C1751; C8929; J1610; J2543; J3411; J7040; J7070; J7120; J7121; P9047; Q9957

== ENCOUNTER 2020-11-13 11:00 | HOS | payer OTHER, MEDICARE, SELFPAY ==
[2020-11-13] MEDS: LORazepam INJ (*CRX) 2 MG/ML VIAL 1 MG IV PUSH (11:57)
[2020-11-13 12:16] VITALS: PULSE 97; RESP 26
[2020-11-13] MEDS: HYDROmorphone HCL INJ (*CRX) 1 MG/ML SYR IV PUSH ×2 (12:48→14:46)
[2020-11-13] MEDS: HYDROmorphone HCL/PF (*CRX) 50 MG in SODIUM CHLORIDE 0.9% IV 95 ML IV CONT (13:15)
[2020-11-13] MEDS: GLYCOPYRROLATE INJ (*SP) 0.2 MG/ML VIAL 0.1 MG IV PUSH (13:20)
--- NOTE | 2020-11-14 08:41 | PM.IMHP ---
H&P: HPI History of Present Illness Date/Time: 11/14/20 08:41 Chief Complaint: dyspnea Narrative: Armen Cunningham is a 70 year old male admitted to acute care 11/12 for septic shock, likely due to e coli UTI with bacteremia, possible spontaneous bacterial peritonitis with pneumoperitoneum, afib with rvr, lactic acidosis, acute renal failure, alcoholic hepatitis, respiratory failure, and hepatic encephalopathy. In spite of treatment with fluids, zosyn, pressors, he continued to deteriorate. Due to his poor prognosis, family opted for comfort care. Therefore, he was admitted to inpatient hospice on 11/13/2020. History was obtained from home hospice aide and from chart review. 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 Cirrhosis Edema Encephalopathy acute HTN (hypertension) Surgical History Surgical History Surgical history unknown Family History Family History Father Diabetes mellitus Other Unknown family medical history Social History Social History Smoking status: Never smoker Alcohol intake: current Drinks per week: 21 Substance use: never Substance use type: does not use Last use: last alcoholic drink 2 days ago per ER report Gender identity (if verbalized by the patient): Male Spiritual care concerns: No Agree to blood products: No Meds Home Medications and Allergies Home Medications Medication Instructions Recorded Confirmed Type No Home Medications 11/13/20 11/13/20 History Allergies Allergy/AdvReac Type Severity Reaction Status Date / Time No Known Allergies Allergy Verified 11/11/20 17:57 Vital Signs Vital Signs - 24 hr 11/13/20 12:16 Pulse Rate 97 Respiratory Rate 26 H Exam Narrative: Exam Narrative: Patient prior to my exam. Assessment and Plan Assessment and plan (1) Palliative care by specialist: Code(s): Z51.5 - Encounter for palliative care Status: Acute Assessment and Plan: Qualifies for GIP status due to uncontrolled dyspnea and discomfort requiring continuous IV hydromorphone for control Remainder of palliative regimen as ordered (2) Septic shock: Code(s): A41.9 - Sepsis, unspecified organism; R65.21 - Severe sepsis with septic shock Status: Acute (3) Pneumoperitoneum: Code(s): K66.8 - Other specified disorders of peritoneum Status: Acute (4) Encephalopathy acute: Code(s): G93.40 - Encephalopathy, unspecified Status: Acute (5) Hyponatremia: Code(s): E87.1 - Hypo-osmolality and hyponatremia Status: Acute (6) Acute renal failure: Qualifiers: Acute renal failure type: unspecified Qualified Code(s): N17.9 - Acute kidney failure, unspecified Code(s): N17.9 - Acute kidney failure, unspecified Status: Acute (7) Alcohol abuse: Code(s): F10.10 - Alcohol abuse, uncomplicated Status: Chronic (8) Alcoholic hepatitis with ascites: Code(s): K70.11 - Alcoholic hepatitis with ascites Status: Acute (9) Metabolic acidosis with increased anion gap and accumulation of organic acids: Code(s): E87.2 - Acidosis Status: Acute (10) Atrial fibrillation with rapid ventricular response: Code(s): I48.91 - Unspecified atrial fibrillation Status: Acute (11) SBP (spontaneous bacterial peritonitis): Code(s): K65.2 - Spontaneous bacterial peritonitis Status: Acute (12) Ascites due to alcoholic cirrhosis: Code(s): K70.31 - Alcoholic cirrhosis of liver with ascites Status: Acute (13) Hy
--- NOTE | 2020-11-14 08:52 | P.DN_ITS ---
Discharge Sum: Prov Provider Primary care physician: UNKNOWN,DOCTOR Admitting provider: Santana Angeles MD Discharge Sum: Diag Contributing Factors (1) Septic shock: (2) Pneumoperitoneum: (3) Encephalopathy acute: (4) Hyponatremia: (5) Acute renal failure: (6) HTN (hypertension): (7) Alcohol abuse: (8) Alcoholic hepatitis: (9) Metabolic acidosis with increased anion gap and accumulation of organic acids: (10) Chronic anemia: (11) Atrial fibrillation with rapid ventricular response: (12) SBP (spontaneous bacterial peritonitis): (13) Ascites due to alcoholic cirrhosis: (14) Hypoglycemia: (15) Hepatorenal syndrome: (16) Acute on chronic kidney failure: (17) Acute hyponatremia: (18) Rhabdomyolysis: (19) UTI (urinary tract infection): (20) Hypomagnesemia: Discharge Sum: Summary Date and Time Date of admission: 11/13/20 11:25 Summary Details: 11/12 admitted to acute care with septic shock and MOFS. Failed to respond to Zosyn, fluids, pressors. 11/13 admitted to inpatient hospice for pal liation of symptoms. Hydromorphone infusion begun with prn hydromorhpone and lorazepam available for prn use. Later on 11/13/2020, he peacefully. Additional Data Attending physician: Santana Angeles MD
== END 2020-11-13 16:17 | disposition expired | DRG 951 ==
PROVIDERS: Admitting Provider Internal Medicine; Visit Provider Internal Medicine
DX: Z51.5 Encounter for palliative care (principal); A41.9 Sepsis, unspecified organism; R65.21 Severe sepsis with septic shock; K76.7 Hepatorenal syndrome; K65.2 Spontaneous bacterial peritonitis; N17.9 Acute kidney failure, unspecified; G93.40 Encephalopathy, unspecified; E87.1 Hypo-osmolality and hyponatremia; E87.2 Acidosis; M62.82 Rhabdomyolysis; N39.0 Urinary tract infection, site not specified; K66.8 Other specified disorders of peritoneum; K70.31 Alcoholic cirrhosis of liver with ascites; K70.11 Alcoholic hepatitis with ascites; F10.10 Alcohol abuse, uncomplicated; I48.91 Unspecified atrial fibrillation; I12.9 Hypertensive chronic kidney disease with stage 1 through stage 4 chronic kidney disease, or unspecified chronic kidney disease; N18.9 Chronic kidney disease, unspecified; E83.42 Hypomagnesemia; E16.2 Hypoglycemia, unspecified; D64.9 Anemia, unspecified
CPT/HCPCS: A9270; J1170; J2060